=== PATIENT | male | born 1945 | race Hispanic/Latino ===

== ENCOUNTER 2024-07-05 14:24 | Emergency (ER) | payer OTHER, SELFPAY ==
--- NOTE | ~2024-07-05 | XR_ITS ---
XR chest 2V DATE: 07/05/2024 15:58 INDICATION: Cough, fever TECHNIQUE: 2 views COMPARISON: 10/08/2015 2 view chest FINDINGS: Cardiomegaly. Aortic arch calcification, thoracic aortic unfolding. No hilar or mediastinal enlargement is evident. No pulmonary infiltrate or consolidation, pleural effusion or pulmonary vascular congestion or pneumo thorax is detected. Degenerative spurring of the thoracic and lumbar spine. IMPRESSION: Cardiomegaly, aortic atherosclerosis No active pulmonary disease Reviewed, dictated and finalized at location A. 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
[2024-07-05 14:47] VITALS: BP 118/80; PULSE 99; RESP 16; TEMP 37.3; O2SAT 96
[2024-07-05 15:14] LABS: EDCOVIDSCREEN Negative (Negative); EDINFLUASCREEN Negative (Negative); EDINFLUBSCREEN Negative (Negative)
--- NOTE | 2024-07-05 15:43 | ED_ITS ---
HPI - URI/Sore Throat General Chief Complaint: Upper Respiratory Infection Stated Complaint: Cough/Fever/Chills Source: patient Mode of arrival: ambulatory Limitations: no limitations History of Present Illness HPI Narrative: 78-year-old male with hx HTN and afib presented for complaint of cough for 1 week. Endorses cough is worse at night, and reports fever. Denies shortness of breath, wheezing, chest pain, palpitations, nausea vomiting, diarrhea or lethargy. Not taking anything for symptoms. Related Data Home Medications Medication Instructions Recorded Confirmed allopurinol 100 mg tablet mg 07/05/24 allopurinol 300 mg tablet mg 07/05/24 apixaban 5 mg tablet (Eliquis) mg 07/05/24 atorvastatin 10 mg tablet mg 07/05/24 lisinopril 20 tablet 07/05/24 mg-hydrochlorothiazide 25 mg tablet metoprolol succinate 50 mg mg PO 07/05/24 tablet,extended release 24 hr naproxen 500 mg tablet mg 07/05/24 omeprazole 20 mg capsule,delayed mg 07/05/24 release propafenone 325 mg mg PO 07/05/24 capsule,extended release 12 hr Allergies Allergy/AdvReac Type Severity Reaction Status Date / Time No Known Allergies Allergy Unverified 07/05/24 15:09 Review of Systems Review of Systems: CONSTITUTIONAL: Denies body aches, reports fever, chills EYES: Denies visual changes, redness, or discharge. ENT: Denies rhinorrhea, congestion, sore throat, or otalgia. CARDIOVASCULAR: Denies chest pain, palpitations, or edema. RESPIRATORY: Reports cough, denies sob, wheezing. GASTROINTESTINAL: Denies abdominal pain, nausea, vomiting, or diarrhea. NEUROLOGIC: Denies headache All systems reviewed & are unremarkable except as noted in HPI and below [facility] Comments At time of signature, I have reviewed and agree with nursing past medical, surgical, social and family history unless otherwise noted. Please see nursing chart for further information. There is no relevant family history pertinent to the presenting complaint Exam Narrative: GENERAL: Well-appearing, in no acute distress. EYES: EOMI. No redness or drainage. Conjunctivae normal. ENT: Mucous membranes pink and moist. No rhinorrhea. TMs normal bilaterally. Throat normal. Uvula midline. NECK: Normal AROM. Supple. CHEST: No respiratory distress. Lungs clear to all chambers. Frequent moist cough noted HEART: Regular rate and rhythm. No murmur appreciated. ABDOMEN: Soft, nontender, nondistended, normal active bowel sounds. SKIN: Warm, dry, no rash. Capillary refill normal. Normal skin turgor. NEURO: Alert and oriented x3. Gait steady. PSYCH: Normal affect. Course Course Emergency Course: Patient is aware of diagnosis, understands and agrees to treatment plan. Anticipatory guidance given. Patient agrees to follow-up as directed and is aware of reasons to seek care at the emergency department. Portions of this record may have been created with voice recognition software Level of Care: Express Care Visit Vital Signs Vital signs: Vital Signs Temperature 99.1 F 07/05/24 14:47 Pulse Rate 99 07/05/24 14:47 Respiratory Rate 16 07/05/24 14:47 Blood Pressure 118/80 07/05/24 14:47 Pulse Oximetry 96 07/05/24 14:47 Temperature 99.1 F 07/05/24 14:47 Pulse Rate 99 07/05/24 14:47 Respiratory Rate 16 07/05/24 14:47 Blood Pressure 118/80 07/05/24 14:47 Pulse Oximetry 96 07/05/24 14:47 MDM - URI/Sore Throat MDM Narrative Medical decision making narrative: Discussed physical exam findings and cxr. Advised supportive measures and signs/symptoms to go to the ER. Pt is appropriate for outpt treatment and f/u. Differential Diagnosis Differential diagnosis: Likely upper respiratory infection, sinusitis, viral infection, bronchitis and other (pneumonia) Lab Data Labs: Lab Results 07/05/24 Range/Units 15:12 POC Influenza A Ag Negative (Negative) POC Influenza B Ag Negative (Negative) POC SARS CoV-2 Ag Negative (Negative) Imaging Data Radiologist's impression: Patient: Christophe Rocha : 1945 MR#: [id number] Age: 78 Acct:[id number] Loc: [facility] ADM Date: 07/05/24Attending Dr: Ordering Physician: Brit Landeros APRN Date of Service: 07/05/24 Procedure(s): XR chest 2V Accession Number(s): [id number] cc: Brit Landeros APRN; WEATHERIZATION DIRECTOR PHYSICIAN~ XR chest 2V DATE: 07/05/2024 15:58 INDICATION: Cough, fever TECHNIQUE: 2 views COMPARISON: 10/08/2015 2 view chest FINDINGS: Cardiomegaly. Aortic arch calcification, thoracic aortic unfolding. No hilar or mediastinal enlargement is evident. No pulmonary infiltrate or consolidation, pleural effusion or pulmonary vascular congestion or pneumothorax is detected. Degenerative spurring of the thoracic and lumbar spine. IMPRESSION: Cardiomegaly, aortic atherosclerosis No active pulmonary disease Discharge Plan Discharge Clinical Impression: Bronchitis Patient Disposition: Home, Self-Care Condition: Stable Instructions: Antibiotic Form, Acute Bronchitis (ED) Additional Instructions: Acute bronchitis can be contagious because it is usually caused by infection with a virus or bacteria. It is usually for a few days but you can be contagious for up to one week. Avoid crowds until you do not have a fever and symptoms are improved Take medication as directed Recommend Flonase spray and Zyrtec (or Claritin/Coretta) if you have nasal congestion over the counter Cough syrup may cause drowsiness; avoid driving or take it at night time. Coricidin HBP if you have hypertension Tylenol 1000mg every 8 hours as needed for pain Symptomatic treatment includes: rest, fluids, and increase humidity of the air at home. Follow up with your primary care provider as needed in 1 week Go to the ER for worsening symptoms or concerns Prescriptions: New methylprednisolone [Medrol (Anthony)] 4 mg tablets,dose pack See Rx Instructions .ROUTE .COMPLEX Qty: 21 0RF Rx Instructions: orally per package directions amoxicillin-pot clavulanate 875-125 mg tablet 1 tablet PO Q12H 7 Days Qty: 14 0RF No Action atorvastatin 10 mg tablet metoprolol succinate 50 mg tablet extended release 24 hr PO allopurinol 100 mg tablet omeprazole 20 mg capsule,delayed release(DR/EC) lisinopril-hydrochlorothiazide 20-25 mg tablet allopurinol 300 mg tablet naproxen 500 mg tablet propafenone 325 mg capsule,extended release 12 hr PO Eliquis 5 mg tablet Follow-up/Referrals: PHYSICIAN,WEATHERIZATION DIRECTOR [Primary Care Provider] - Time of Disposition: 16:39
== END 2024-07-05 16:40 | disposition home or self-care (01) ==
PROVIDERS: Emergency Provider Nurse Practitioner Family
DX: J40 Bronchitis, not specified as acute or chronic (principal); Z20.822 Contact with and (suspected) exposure to COVID-19; I10 Essential (primary) hypertension; I48.91 Unspecified atrial fibrillation; E78.00 Pure hypercholesterolemia, unspecified
CPT/HCPCS: 71046; 87426; 87804; 99203; G0463

== ENCOUNTER 2024-11-05 11:08 | Emergency (ER) | payer MEDICARE, MEDICAID, SELFPAY ==
--- NOTE | ~2024-11-05 | XR_ITS ---
XR chest 2V 11/05/2024 12:02 Indication: Cough and chest discomfort crackles in lung bases. Procedure: 2 view chest Comparison: 07/05/2024 Findings: Cardiomegaly. Mild interstitial edema. More focal consolidation present in the lung bases w hich may relate to edema or superimposed pneumonia. No significant effusion. No pneumothorax. Impression: 1: Cardiomegaly with interstitial edema. 2: Lower thoracic pulmonary consolidation may reflect edema or superimposed pneumonia. Reviewed, dictated and finalized at location A. Impression: 1: Cardiomegaly with interstitial edema. 2: Lower thoracic pulmonary consolidation may reflect edema or superimposed pne umonia.
--- NOTE | 2024-11-05 11:19 | ED_ITS ---
HPI - URI/Sore Throat General Chief Complaint: Upper Respiratory Infection Stated Complaint: COUGH/BODY ACHES/COLD Time Seen by Provider: 11/05/24 11:30 Source: patient Mode of arrival: ambulatory Limitations: no limitations History of Present Illness HPI Narrative: Christophe is a 79-year-old male patient presenting to the clinic today with complaints of productive cough with brown phlegm, body aches, chest congestion, anterior rib pain with coughing. Symptoms have been going on for the past 8 days. Denies any shortness of breath currently while resting. Denies chest pain but states his anterior ribs hurt when coughing. No known fever. No history of smoking. No history of asthma,COPD, CHF, or AK. History of CVA, A- fib, HTN, and hypercholesterolemia. Related Data Home Medications ?Medication ?Instructions ?Recorded ?Confirmed ?Last Taken ?Type allopurinol 300 mg tablet mg 07/05/24 Unknown History apixaban 5 mg tablet (Eliquis) mg 07/05/24 Unknown History atorvastatin 10 mg tablet mg 07/05/24 Unknown History lisinopril 20 tablet 07/05/24 Unknown History mg-hydrochlorothiazide 25 mg tablet metoprolol succinate 50 mg mg PO 07/05/24 Unknown History tablet,extended release 24 hr naproxen 500 mg tablet mg 07/05/24 Unknown History omeprazole 20 mg capsule,delayed mg 07/05/24 Unknown History release propafenone 325 mg mg PO 07/05/24 Unknown History capsule,extended release 12 hr Allergies Allergy/AdvReac Type Severity Reaction Status Date / Time No Known Allergies Allergy Verified 11/05/24 11:27 Review of Systems Review of Systems: Pertinent positives per HPI. Patient denies any fever, chills, rash, headache, visual changes, dizziness,shortness of breath, chest pain, palpitations, nausea, vomiting, diarrhea, constipation, abdominal pain, or any urinary issues. PMFSH Comments At the time of my signature, I reviewed and agree with the nursing past medical, surgical, social, and family history. There is no relevant family history pertinent to the patient complaint. Exam Narrative: General: Well-developed, well nourished, acutely ill-appearing Head: Normocephalic, atraumatic Eyes: Pupils equally round and reactive to light bilaterally, EOM intact, sclera and conjunctive clear, no discharge, lids normal Ears: TMs intact and clear, ear canals clear, no drainage, grossly hearing normal. Nose: Nares patent, clear nasal discharge, no inflammation, no sinus tenderness. Mouth: Oral pharynx without lesions or masses, good dentition, MMM. Neck: Supple, trachea midline, no enlargement of anterior or posterior cervical nodes, no thyroid masses or goiter palpable. Cardio: Regular rate and rhythm, s1 and s2 normal, no murmur appreciated. Resp: Diminished breath sounds with crackles in the bases, no rhonchi, rales, wheezing or rubs Course Course Emergency Course: Portions of this record may have been created with voice recognition software. Level of Care: Express Care Visit Vital Signs Vital signs: Vital Signs Temperature 36.6 C 11/05/24 11:26 Pulse Rate 108 H 11/05/24 11:26 Respiratory Rate 16 11/05/24 11:26 Blood Pressure 145/90 H 11/05/24 11:26 Pulse Oximetry 96 11/05/24 11:26 Temperature 36.6 C 11/05/24 11:26 Pulse Rate 108 H 11/05/24 11:26 Respiratory Rate 16 11/05/24 11:26 Blood Pressure 145/90 H 11/05/24 11:26 Pulse Oximetry 96 11/05/24 11:26 Vital signs reviewed Transfer Transfered to: [facility] Medical Transportation: Other (Private car) Transfer rationale: SOB on exertion, pulmonary edema verses superimposed pneumonia Accepting physician: Bone-SUSPENDER MAKER Transfer comments: Private car MDM - URI/Sore Throat MDM Narrative Medical decision making narrative: At the time of visit patient is resting comfortably on the exam table. Patient appears to be nontoxic. EKG: EKG shows atrial fibrillation with rapid ventricular response. Heart rates 119 beats per minute. Right bundle-branch block. No ST elevation, depression, or T-wave inversion noted. Diagnostics: Chest x-ray shows cardiomegaly with interstitial edema versus superimposed pneumonia Plan: Recommend transfer to the ER for further evaluation. Patient and daughter is agreeable to this. Would like to be transfer to [facility] Emergency Room in [place], [place]. Patient's binder fixer is Dr. Carter. Patient to be transported via private car. Daughter to drive patient to [facility] ER. Differential Diagnosis Differential diagnosis: Likely upper respiratory infection, otitis media, sinusitis, viral infection, bronchitis, influenza, pharyngitis and other (COVID, influenza, RSV, pneumonia, pulmonary edema, congestive heart failure) Imaging Data Radiologist's impression: ITS Impressions Chest X-Ray 11/05/24 12:03 Impression: 1: Cardiomegaly with interstitial edema. 2: Lower thoracic pulmonary consolidation may reflect edema or superimposed pneumonia. ECG Data EKG #1: Attestation: I personally reviewed and interpreted this ECG as follows: ECG completion date: 11/05/24 ECG completion time: 01:19 Interpretation: EKG shows atrial fibrillation with a rapid ventricular response. Heart rate is 119 beats per minute. Shows a right bundle-branch block without ST elevation, depression, or T-wave inversion. QRS duration is 124 milliseconds, QT-QTC is 324-394 milliseconds, R-T axis is 47 and -17 Discharge Plan Discharge Clinical Impression: Dyspnea on exertion, Cardiomegaly Interstitial edema Qualifiers: Edema type: unspecified Qualified Code(s): R60.9 - Edema, unspecified Patient Disposition: Acute Care Hospital Condition: Stable Patient Language: Slovenian Prescriptions: No Action atorvastatin 10 mg tablet metoprolol succinate 50 mg tablet extended release 24 hr PO omeprazole 20 mg capsule,delayed release(DR/EC) lisinopril-hydrochlorothiazide 20-25 mg tablet allopurinol 300 mg tablet naproxen 500 mg tablet propafenone 325 mg capsule,extended release 12 hr PO Eliquis 5 mg tablet Follow-up/Referrals: Trae,CHINEDU Pearson [Primary Care Provider] - Time of Disposition: 12:29 Quality NIHSS Nursing Documentation ED NIHSS nursing documentation: reviewed/agree
[2024-11-05 11:26] VITALS: BP 145/90; PULSE 108; RESP 16; TEMP 36.6; O2SAT 96
--- NOTE | 2024-11-05 12:14 | ECG_ITS ---
Test Date: 2024-11-05 12:19:28 Measurements Intervals [place] Rate: 119 P: 0 [place]: 0 QRS: 47 QRSD: 124 T: -17 QT: 324 QTc: 456 Interpretive Statements ATRIAL FIBRILLATION WITH RAPID VENTRICULAR RESPONSE RIGHT BUNDLE BRANCH BLOCK [120+ ms QRS DURATION, UPRIGHT V1, 40+ ms S IN I/aVL/V4/V5/V6] No previous ECG available for comparison Electronically Signed On 11-05-2024 14:36:55 CDT by Jorge Luis Marc M.D.
== END 2024-11-05 12:35 | disposition short-term general hospital (02) ==
PROVIDERS: Emergency Provider Nurse Practitioner Family; PCP Physician Assistant
DX: R06.09 Other forms of dyspnea (principal); I51.7 Cardiomegaly; J81.1 Chronic pulmonary edema; I48.91 Unspecified atrial fibrillation; I45.10 Unspecified right bundle-branch block; I10 Essential (primary) hypertension; E78.00 Pure hypercholesterolemia, unspecified; Z86.73 Personal history of transient ischemic attack (TIA), and cerebral infarction without residual deficits; Z79.01 Long term (current) use of anticoagulants
CPT/HCPCS: 71046; 93005; 99213; G0463

== ENCOUNTER 2025-01-25 18:29 | Emergency (ER) | payer MEDICARE, MEDICAID, SELFPAY ==
[2025-01-25 18:32] VITALS: BP 112/75; PULSE 79; RESP 18; TEMP 36.7; O2SAT 97
[2025-01-25 20:20] LABS: Add Urine Microscopic? YES; Appearance Urine Clear (Clear); Bacteria Urine None Seen /hpf; Bilirubin Urine Negative (Negative); Blood Urine Negative (Negative); Color Urine Yellow (Yellow); Glucose Urine UA Negative (Negative); Ketones Urine Trace mg/dL (Negative); Leukocyte Esterase Ur Negative LEU/UL (Negative); Nitrate Urine Negative (Negative); Non Pathogenic Casts 0-2; Protein Urine Trace mg/dL (Negative); RBC Urine 0-2 /hpf (0-2); Squamous Epithelial Cell Urine None Seen /hpf (Few); Urobilinogen Urine 0.2 mg/dL (<2.0); WBC Urine 0-5 /hpf (0-3); pH Urine 5.5 (5.0-9.0)
[2025-01-25 20:23] LABS: Basophils Absolute Auto 0.1 K/mm3 (0.0-0.1); Basophils Percent Auto 0.7 % (0.2-1.2); Eosinophils Absolute Auto 0.2 K/mm3 (0-0.3); Eosinophils Percent Auto 1.9 % (0-4.4); Hematocrit 45.5 % (42.0-52.0); Hemoglobin 14.9 g/dL (14.0-18.0); Immature Granulocyte Absolute 0.04 K/mm3 (0.00-0.031); Immature Granulocyte Percent A 0.4 % (0-0.5); Lymphocytes Absolute Auto 1.81 K/mm3 (0.9-3.2); Lymphocytes Percent Auto 17.6 % (18.3-44.2); Mean Corpuscular HGB Conc 32.7 g/dl (32-36); Mean Corpuscular Hemoglobin 30.5 pg (26-34); Mean Platelet Volume 10.7 fl (7.4-10.4); Monocytes Absolute Auto 0.9 K/mm3 (0.1-0.6); Monocytes Percent Auto 8.7 % (2.6-8.5); Neutrophils Absolute Auto 7.3 K/mm3 (1.3-6.7); Neutrophils Percent Auto 70.7 % (45.5-73.1); Platelet Count Result 230 k/mm3 (150-375); Red Blood Count 4.89 M/mm3 (4.6-6.20); Red Cell Distribution Width 13.6 % (11.5-14.5); White Blood Count 10.3 K/mm3 (4.5-10.0)
[2025-01-25 20:27] LABS: Alanine Aminotransferase 24 U/L (6-50); Albumin Level 4.2 g/dL (3.5-5.1); Alkaline Phosphatase 102 U/L (38-126); Anion Gap 12 mmol/L (4-12); Aspartate Amino Transferase 28 U/L (17-59); Bilirubin,Total 0.9 mg/dL (0.2-1.3); Blood Urea Nitrogen 28 mg/dL (9-20); Calcium 9.1 mg/dL (8.4-10.2); Carbon Dioxide 22 mmol/L (22-30); Chloride 102 mmol/L (98-107); Estimated CRCL calculation 44 ml/min; Estimated Glomerular Filt Rate 48; Glucose 94 mg/dL (65-110); Lipase 83 U/L (23-300); Potassium 3.5 mmol/L (3.4-5.0); Sodium 136 mmol/L (137-145); Total Protein 7.4 g/dL (6.3-8.2)
--- OUTSIDE RECORDS SUMMARY | 2025-01-25 20:51 | XMS_ITS | Clinical Summary ---
Author Organization [facility] Facility Address [address] [address] Care Team Providers Care Body Finisher Name Role Phone Chance Larkin Primary Care Provider Encounters Date Type Department Care Team Description 12/31/2024 Documentation Only [facility], [address] [address] ProviderAriela MD from Last 3 Months Social History Tobacco Use Types Packs/Day Years Used Date Smoking Tobacco: Never Assessed Sex and Gender Information Value Date Recorded Sex Assigned at Not on file Legal Sex Male 10:34 AM EDT Gender Identity Not on file Sexual Orientation Not on file Plan of Treatment Health Maintenance Due Date Last Done Comments Pneumococcal Vaccine: 50+ Ye ars (2 of 2 - PPSV23, PCV20, or PCV21) 07/06/2017 05/11/2017 Influenza Vaccine (Season Ended) 2025 Hepatitis B Vaccine Aged Out No longe r eligible based on patient's age to complete this topic Insurance UHC Medicare Medicaid [place] Care Teams Body Finisher Relationship Specialty Start Date End Date Chance Larkin PA [address] [place] [address] PCP - General Physician Clinic [facility] 12/31/24
--- OUTSIDE RECORDS SUMMARY | 2025-01-25 20:51 | XMS_ITS | Clinical Summary ---
Author Organization [facility] Address [address] [place] [address] Care Team Providers Care Clinical Trial Manager Name Role Phone Dorys Driscoll MD Primary Care Provider [phone] Source Comments [facility],non-owned Affiliates and Associated Physician Practices is amultiple site organization consisting of ambulatory clinics and hospital sitesin [place], [place], [place] and [place]. This disclosure is being madepursuant to the Care Everywhere program and may not contain all information available regarding this patient. Last updated 18.[facility] Allergies Active Allergy Reactions Criticality Noted Date Comments Neutrogena Moisture Rash Medium 11/09/2013 Medications * Be aware that medications may not be up to date on this document. Alwaysverify current medications with the patient. Eliquis 5 MG tablet Take 1 (one) tablet by mouth 2 times daily 4 Active propafenone SR 12hr (Rythmol SR) 325 MG capsule Take 1 (one) capsule by mouth every 12 hours 4 Active lisinopril-hydr oCHLOROthiazide (Prinzide; Zestoretic) 20-25 MG tablet Take 1 (one) tablet by mouth once daily Active Vitamin D3 (25 MCG) 1000 UNIT capsule Take 2 (two) capsules by mouth once daily Active atorvastatin (Lipitor) 10 MG tablet Take 1 (one) tablet by mouth once daily Active metroNIDAZOLE, topical, (Metrocream) 0.75 % cream APPLY THIN LAYER TOPICALLY TO THE AFFECTED AREA TWICE DAILY IN THE MORNING AND IN THE EVENING 3 Active pravastatin (Pravachol) 10 MG tablet Take 1 (one) tablet by mouth at bedtime Active Active Problems Problem Noted Date Diagnosed Date Neoplasm of uncertain behavior of skin 6 Personal history of malignant melanoma of skin 0 03/21/2012 Family History Medical History Relation Name Comments Blindness Father Glaucoma Father Allergy (Severe) Neg Hx CVA Neg Hx Cancer Neg Hx Cancer - Breast Neg Hx Cancer - Skin, Melanoma Neg Hx Cancer - Skin, Non Melanoma Neg Hx Eczema Neg Hx Hemophilia Neg Hx Macular Degeneration Neg Hx Psoriasis Neg Hx Rashes/Skin Problems Neg Hx Retinal Detachment Neg Hx Strabismus Neg Hx Relation Name Status Comments Father Social History Tobacco Use Types Packs/Day Years Used Date Smoking Tobacco: Former Smokeless Tobacco: Never Alcohol Use Standard Drinks/Week Comments Yes 0 (1 standard drink = 0.6 oz pur e alcohol) Sex and Gender Information Value Date Recorded Sex Assigned at Not on file Legal 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 Gender Identity Not on file Sexual Orientation Not on file Plan of Treatment Health Maintenance Due Date Last Done Comments DTAP/TDAP/TD VACCINES (1 - Tdap) 1964 PNEUMOCOCCAL VACCINE 50+ (1 of 1 - PCV) 1995 ZOSTER VACCINE (1 of 2) 1995 Respiratory Syncytial Virus (RSV) Vaccine Pt: or over 60 yrs (1 - 1-dose 75+ series) 2020 COVID-19 VACCINE ( - 2023-2 5 season) 2024 DEPRESSION SCREENING 08/12/2024 MEDICARE AWV CALENDAR YEAR 2024 INFLUENZA VACCINE Completed 07/15/2024, 06/01/2021 HEPATITIS B VACCINE Aged Out No longe r eligible based on patient's age to complete this topic HIB VACCINE Aged Out No longer eligi ble based on patient's age to complete this topic HPV VACCINE Aged Out No longer eligi ble based on patient's age to complete this topic MENINGOCOCCAL (Group B) VACCINE SHARED DECISION-MAKING Aged Out No longer eligible based on patient's age to complete this topic MENINGOCOCCAL GROUPS A/C/Y/W VACCINE Aged Out No longer eligible b ased on patient's age to complete this topic Insurance MEDICARE MEDICAID - [facility] MANAGED MEDICARE ADV MEDICAID - [place] Care Teams Clinical Trial Manager Relationship Specialty Start Date End Date Dorys Driscoll MD NPI: [id number] [place] [address] [address] [place] [address] [facility] - General 02/22/12
--- OUTSIDE RECORDS SUMMARY | 2025-01-25 20:52 | XMS_ITS | Data Portability ---
Author Organization [place] - [facility], [facility] Address [address] [place] [phone] Assessment No assessment recorded. Plan of Treatment Reminders Order Date Submit Date Provider Last Modified By Organization Details Last Modified Time Details Appointments None record ed. Lab None record ed. Referral None record ed. Procedures None record ed. Surgeries None record ed. Imaging None record ed. Medication Orders None record ed. Patient TargetsNo targets recorded. Patient InstructionsNo instructions recorded. Reason for Referral None Reported. Medical Equipment None Reported. Medications Name Sig Start Date Stop Date Status Note LastModified by Organization Details LastModified Time tramadol 50 mg tablet TK 1 T PO Q 6 H PRN active Not Available Not Available No t Available pravastatin 80 mg tablet TAKE 1 TABLET BY MOUTH DAILY active Not Available Not Available No t Available metronidazole 0.75 % topical cream ALYSSA TO AFFECTED AREA BID PRN active Not Available Not Available No t Available metoprolol tartrate 50 mg tablet TAKE 1 TABLET BY MOUTH TWICE DAILY active Not Available Not Available No t Available lisinopril 20 mg-hydrochloro thiazide 25 mg tablet TAKE 1 TABLET BY MOUTH DAILY active Not Available Not Available No t Available aspirin 81 mg chewable tablet CHEW AND SWALLOW TABLET BY MOUTH DAILY active Not Available Not Available No t Available propafenone ER 325 mg capsule,extend ed release 12 hr TAKE 1 CAPSULE BY MOUTH EVERY 12 HOURS active Not Available Not Available No t Available Eliquis 5 mg tablet TAKE 1 TABLET BY MOUTH TWICE DAILY active Not Available Not Available No t Available Vitals None Recorded Social History None recorded. Functional Status None recorded. Mental Status None recorded. Family History Nothing Reported. Medical History No medical history recorded. Immunizations Vaccine Type Date Status Note Provider Maurice luque and Address Organization Details Recorded Time COVID-19 vaccine, vector-nr, rS-Ad26, PF, 0.5 mL 11/15/2020 completed Savita Pal MD [address] [place], [address], [facility] 11/15/2020 22:57:14 Past Encounters Encounter ID Performer Location Encounter Start Date Encounter Closed Date Diagnosis/Indication Diagnosis SNOMED-CT Code Diagnosis ICD10 Code Diagnosis Note [id number] Savita Pal MD [address] [place] [address] 11/15/2020 14:35:56 11/17/2020 23:06:21 Administration of viral vaccine [id number] Z23 Health Concerns Section Related Observation LastModified by Organization Detai ls LastModified Time None Recorded Concern Status LastModified by Organization Details LastModified Time None Recorded Advance Directives Directive None Recorded Payers Insurance Date Sequence Insurance Name Policy Number Policy Dyson Covered Member ID Dyson Member ID Guarantor Name 08/31/2021 2 [facility] - DUAL ELIGIBLE (MEDICARE REPLACEMENT/AD VANTAGE - HMO) [place] Christophe Rocha [id number] Christophe Rocha 08/31/2021 3 [place] [employer] Christophe Rocha [id number] Christophe Rocha 08/31/2021 1 [facility] [place] Christophe Rocha [id number] Christophe Rocha 08/31/2021 1 [place] Christophe Rocha [id number] Christophe Rocha 08/31/2021 [place] [facility] Christophe Rocha [id number] Christophe Rocha
--- OUTSIDE RECORDS SUMMARY | 2025-01-25 20:52 | XMS_ITS | Data Portability ---
Author Organization [place] [facility], Main Office Address [address] [place] [address] Assessment Encounter Date Assessment Date Assessment LastModified by Organization Details LastModified Time 11/17/2024 11/17/2024 I have reconciled the patient's medications post their discharge from inpatient facility. Not available 11/17/2024 09:09:11 Plan of Treatment Reminders Order Date Submit Date Provider Last Modified By Organization Details Last Modified Time Details Appointments Sick/Acut e 2024 04:15P Alfred Ramires MD Not available Not available Not available Follow Up 30 2024 09:00A JUANI Conner Not available Not available Not available Lab None recorded. Referral sleep medicine referral - Has sleep apnea , machine too big , clumsy . Please eval and treat . Please call patient to schedule an appointme nt. Thank you 2024 025 [facility] ([facility]), [address] [place], [address], 12/30/2024 19:10:28 nephrolog ist referral - Had pneumonia , is fatigued m bruise and swelling left ankle , Please eval and treat. Is cold all the time. Please call patient to schedule an appointme nt. Liliya. 2024 025 [facility] Man Kaminski DO, [address] [facility], [facility] [address], [place], [address], 12/30/2024 18:55:17 Procedures None recorded. Surgeries None recorded. Imaging US, duplex, venous, lower extremity , unilatera l - positive corin's left , on Eliquis [email or web address] (Imaging), [address], [place], [address], 12/22/2024 11:59:12 US, duplex, venous, lower extremity , complete - bilateral 2024 025 [facility] (Imaging), [address], [place], [address], 11/25/2024 16:05:49 Medication Orders promethaz ine-DM 6.25 mg-15 mg/5 mL oral syrup [address] [facility], [address] [place], [place], [id number], 11/17/2024 09:15:21 prednison e 20 mg tablet [address] [facility]858, [address] [place], [place], [phone], 12/14/2024 09:32:10 metronida zole 0.75 % topical cream 2023 024 [facility], [address] [place], [place], [id number], 07/15/2024 10:40:13 Patient TargetsNo targets recorded. Patient Instructions Encounter Date Encounter Id Patient Instructions Last Modified By Organization Details Last Modified Time 07/15/2024 [id number] dementia rating scale-2* [email or web address] Not available 07/15/2024 10:40:08 depression screening* [email or web address] Not available 07/15/2024 10:40:08 alcohol misuse* [email or web address] Not availab le 07/15/2024 10:40:08 multi-dimensiona l health assessment questionnaire* [email or web address] Not available 07/15/2024 10:40:08 Personalized a lt Plan and Screening Recommendations Advance Directives - Do you have one? No I have no recommendations Advance Directives - Do we have your advance directive on file in your health record? I have no recommendations Primary Prevention/Interven tion (prevents or decreases the chance of common diseases from occurring) Smoking Risk: Non Smoker I have no recommendations Alcohol Misuse Screening: Negative I have no recommendations Weight: Overweight try to lose 10% of your body weight Physical activity: Need more exercise/physical activity minimum of 20-30 minutes activity that causes mild breathlessness/day Nutrition: Average Eat Heart Healthy Diet Fall Risk (screened today): Low I have no recommendations Vaccines Pneumococcal: No further needed Influenza: Your next one in the fall of this year Chronic Disease Risks Stroke: Intermediate Risk Active diagnosis, Continue current treatment plan Heart Attack: Intermediate Risk Active diagnosis, Continue current treatment plan Clogging of the Arteries: Intermediate Risk Active diagnosis, Continue current treatment plan Diabetes: Low Risk Active diagnosis, Continue current treatment plan Secondary Prevention/Interven tion (detects treatable diseases before they may cause symptoms, disability, or ) Prostate Cancer Screening: No PSA screening necessary No digital rectal exam screening necessary Colon Cancer Screening: Cologuard (DNA stool test) Recommended Date Screening Last Performed: pt wasn't sure of last colonscopy. Eye Disease Screening: Recommended today Dementia Risk: Low I have no recommendations Depression Screening: Negative I have no recommendations Not available 07/15/2024 10:33:01 recheck BP at home [email or web address] Not avai lable 07/25/2024 21:16:54 11/17/2024 [id number] Thank you for yo ur visit to our office today. We would like to request that you reach out to your referring or previous provider and request that they send us a Summary of Care in electronic form, so that we may have it on file in your medical record. At your visit, we had the medical records we needed to provide you with the best possible care; however, for insurance purposes, an electronic Summary of Care is beneficial. Thank you for your assistance in obtaining this information and we look forward to providing continued care to you. Please review your medication list from the Summary of Care for this visit. If there are any differences from what you are currently taking at home, please call us to discuss. Not available 11/17/2024 09:09:11 Homebound Status : Required Home Health Services: Durable Medical Equipment needed: Billing Guidelines CPT code 10346- Transitional Care Management services with moderate medical decision complexity (zwuy-eh-udse visit within 14 days of discharge). CPT code 19568- Transitional Care Management services with high medical decision complexity ([id number]-xz-qfcl visit within 7 days of discharge). 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 Is cold all the time. Please call patient to schedule an appointment. Thankyou. Referring Physician: Chance Larkin [facility], Encounter Date: 12/07/2024 Sleep Medicine Referral for Idiopathic sleep related non-obstructive alveolar hypoventilation Has sleep apnea , machine too big , clumsy . Please eval and treat . Please call patient to schedule an appointment. Thank you Referring Physician: Chance Larkin [facility] [place], Encounter Date: 12/14/2024 Results Created Date Observation Date Name Description Value Unit Range Abnormal Flag Note LastModifiedBy Organization Detail LastModifiedTime 11/06/19 25 11/05/2024 imagi ng/di agnos tic resul t No observ ation record ed. [address], [place], [address], 11/05/2024 13:20:08 11/06/19 25 11/05/2024 imagi ng/di agnos tic resul t No observ ation record ed. [facility] [address] [place], [address], 11/05/2024 21:38:45 11/20/19 25 11/18/2024 US, saúl sanz s, jakub barber mitvee, nelsy ete No observ ation record ed. [email or web address] [facility] ([facility]) [address] [facility] [address], [place], [address], 11/25/2024 16:05:49 Result Notes None recorded. Problems Name Problem SNOMED Code Status Onset Date Resolution Date Notes Provider Name and Address Organization Details Recorded Time Viral bronchitis 71291813 Active Not Available [facility] 3 09:24:16 Venous insufficie ncy of leg 735447982 Active Not Available [facility] 3 09:24:17 Tinea faciei 568339539 Active Not Available [facility] 3 09:24:17 Low back pain 376460911 Active Not Available [facility] 3 09:24:17 Prostate specific antigen above reference range 152275544 Active Not Available [facility] 3 09:24:17 Peripheral vascular disease 853466991 Active Not Available [facility] 3 09:24:17 Aphthous ulcer of mouth 864537118 Active Not Available [facility] 3 09:24:17 Cough 54663570 Active Not Available [facility] 3 09:24:17 Hyperlipid emia 80883199 Active Not Available [facility] 3 09:24:17 Essential hypertensi on 25133136 Active Not Available [facility] 3 09:24:17 Edema of lower extremity 541670677 Active 2022 Not Available [facility] 3 09:24:16 Laboratory test result abnormal 636053074 Active 2022 Not Available [facility] 3 09:24:17 Abnormal weight 97976095 Active 2023 Tori Hoffmann MA [facility], [facility] [employer] [facility] 4 10:35:56 Obesity 877361411 Active 2023 CHINEDU Helm [address], [address], [place], [address] , [facility] 4 10:43:37 Atrial fibrillati on 45375867 Active 2023 [address] Helm [address], [address], [place], [address] , [facility] 4 10:43:57 Screening for malignant neoplasm of prostate Active 2023 CHINEDU Helm [address], [address], [place], [address] , [facility] 4 10:50:08 Cardiomega ly 5605207 Active 2023 Elza Snider RN null, [place] [facility] 4 12:43:05 Folliculit is 11600519 Active 2023 [facility]m [address], [address], [place], [address] , [facility] 4 14:16:41 Gout 23680429 Active 2023 CH[facility] Helm [address], [address], [place], [address] , [facility] 4 12:40:29 Gastroesop hageal reflux disease 343525575 Active 2023 [facility] Helm [address], [address], [place], [address] , [facility] 4 10:16:43 Bilateral calf pain 7570785461128 9104 Active 2024 CHINEDU Helm [address], [address], [place], [address] , [facility] 5 09:29:16 Serum creatinine above reference range 550982077 Active 2024 CHINEDU Helm [address], [address], [place], [address] , [facility] 5 12:01:57 Pain of left calf 7489017255472 109 Active 2024 CHINEDU Helm [address], [address], [place], [address] , [facility] 5 12:05:25 Idiopathic sleep related non-obstru ctive alveolar hypoventil ation 532582363 Active 2024 [facility]INEDU Helm [address], [address], [place], [address] , [place] [facility] 5 10:02:34 Notes:Some problems listed i n Document: #[id number] could not be added to this patient's chart. Please review this document and add these problems to the patient's chart manually as needed. Problem Notes None recorded. Procedures Surgical History Date Name Laterality Status Provider Name and Address Organization Details Recorded Time 5 Transitional_C are_Management completed DEMETRICE Garnica [facility] 11/17/2024 09:09:11 4 Medicare Wellness CPT Code, subsequent completed November STEFANO Cash [facility] 07/15/2024 10:27:56 excision of melanoma completed Not Available [facility] 10/10/2022 08:43:36 Imaging Results None recorded. Procedure Notes None recorded. Medical Equipment None Reported. Allergies No known drug allergies Medications Name Sig Start Date Stop Date Status Note LastModified by Organization Details LastModified Time cyclobenz aprine 10 mg tablet Take 1 tablet every day by oral route at bedtime. active Not Available Not Available No t Available amoxicill in 500 mg capsule 04/02 completed Not Available Not Available Not Available promethaz ine-DM 6.25 mg-15 mg/5 mL oral syrup TAKE 5 ML BY MOUTH EVERY 4 HOURS FOR 10 DAYS NEEDED 11/17 completed Not Available Not Available Not Available atorvasta tin 10 mg tablet TAKE 1 TABLET BY MOUTH EVERY DAY active Not Available Not Available No t Available diltiazem CD 180 mg capsule,e xtended release 24 hr TAKE 1 CAPSULE BY MOUTH EVERY DAY active Not Available Not Available No t Available metoprolo l succinate ER 50 mg tablet,ex tended release 24 hr TAKE 1 TABLET BY MOUTH EVERY DAY active Not Available Not Available No t Available valacyclo vir 1 gram tablet TK 2 TS PO Q 12 H FOR 1 DAY 11/09 completed Not Available Not Available Not Available prednison e 20 mg tablet Start on 10/15/24 ,Take 2 tabs PO twice daily for 2 days; 1 tab PO twice daily for 5 days; 1/2 tab PO twice daily for 2 days; 1/2 tab PO once for 1 day. TAKE 2ND DOSE EVERYDAY AT NOON-10 DAY COURSE 12/14 completed Not Available Not Available Not Available acetamino phen 300 mg-codein e 30 mg tablet TAKE 1 TO 2 TABLETS BY MOUTH EVERY 6 HOURS WITH FOOD NEEDED FOR PAIN 07/15 completed Not Available Not Available Not Available allopurin ol 100 mg tablet TAKE 1 TABLET BY MOUTH AT BEDTIME FOR 7 DAYS, 2 TABLETS AT BEDTIME FOR 7 DAYS, 3 TABLETS AT BEDTIME AND MAINTAIN 11/17 completed Not Available Not Available Not Available ciproflox acin 500 mg tablet TAKE 1 TABLET BY MOUTH EVERY 12 HOURS FOR 10 DAYS STARTING 1 DAY BEFORE SCHEDULE D PROCEDUR E 07/15 completed Not Available Not Available Not Available Tamiflu 75 mg capsule active Not Available Not Available Not Available aspirin 81 mg tablet,de layed release active Not Available Not Available Not Available Depo-Medr ol 80 mg/mL suspensio n for injection Take 1 mL by injectio n route. 2024 active pt tolerate d well Not Available Not Available Not Available famotidin e 20 mg tablet 11/09 completed Not Available Not Available Not Available pravastat in 80 mg tablet 11/09 completed Not Available Not Available Not Available benzonata te 100 mg capsule TAKE 1 CAPSULE BY MOUTH EVERY 8 HOURS NEEDED FOR COUGH 11/17 completed Not Available Not Available Not Available clotrimaz ole-betam ethasone 1 %-0.05 % topical cream Apply 1 applicat ion twice a day by topical route for 15 days. active Not Available Not Available No t Available metronida zole 0.75 % topical cream APPLY THIN LAYER TOPICALL Y TO THE AFFECTED AREA TWICE DAILY IN THE MORNING AND IN THE EVENING active Not Available Not Available No t Available metoprolo l tartrate 50 mg tablet TAKE 1 TABLET BY MOUTH EVERY DAY 12/25 completed Not Available Not Available Not Available indometha nell 50 mg capsule TAKE 1 CAPSULE BY MOUTH THREE TIMES DAILY FOR 10 DAYS 11/17 completed Not Available Not Available Not Available omeprazol e 20 mg capsule,d elayed release TAKE 1 CAPSULE BY MOUTH EVERY DAY BEFORE A MEAL FOR EPIGASTR IC PAIN 12/14 completed Not Available Not Available Not Available lisinopri l 20 mg-hydroc hlorothia zide 25 mg tablet TAKE 1 TABLET BY MOUTH EVERY DAY active Not Available Not Available No t Available aspirin 81 mg chewable tablet CHEW AND SWALLOW 1 TABLET BY MOUTH EVERY DAY 11/17 completed Not Available Not Available Not Available allopurin ol 300 mg tablet TAKE 1 TABLET BY MOUTH DAILY active Not Available Not Available No t Available lisinopri l 10 mg-hydroc hlorothia zide 12.5 mg tablet TAKE 1 TABLET BY MOUTH DAILY active Not Available Not Available No t Available ibuprofen 600 mg tablet 11/09 completed Not Available Not Available Not Available Valium 10 mg tablet Take 1 TABLET by mouth one hour before the schedule d procedur e active Not Available Not Available No t Available levofloxa nell 750 mg tablet TAKE 1 TABLET BY MOUTH DAILY 12/14 completed Not Available Not Available Not Available methylpre dnisolone 4 mg tablets in a dose pack FOLLOW PACKAGE DIRECTIO NS 07/15 completed Not Available Not Available Not Available diltiazem 30 mg tablet TAKE 1 TABLET BY MOUTH EVERY 6 HOURS 12/14 completed Not Available Not Available Not Available naproxen 500 mg tablet TAKE 1 TABLET BY MOUTH TWICE DAILY WITH MEALS FOR 30 DAYS 11/17 completed Not Available Not Available Not Available amoxicill in 875 mg-potass ium clavulana te 125 mg tablet TAKE 1 TABLET BY MOUTH EVERY 12 HOURS FOR 7 DAYS 07/15 completed Not Available Not Available Not Available Ventolin HFA 90 mcg/actua tion aerosol inhaler Inhale 2 puffs every 4 hours by inhalati on route as needed. active Not Available Not Available No t Available propafeno ne ER 325 mg capsule,e xtended release 12 hr TAKE 1 CAPSULE BY MOUTH TWICE DAILY active Not Available Not Available No t Available Vicodin ES 7.5 mg-300 mg tablet Take 1 TABLET by mouth one hour before the schedule d procedur e. active Not Available Not Available No t Available Eliquis 5 mg tablet TAKE 1 TABLET BY MOUTH TWICE DAILY active Not Available Not Available No t Available Contrave 8 mg-90 mg tablet,ex tended release Take by oral route for 30 days. 04/02 completed Not Available Not Available Not Available Zepbound 2.5 mg/0.5 mL subcutane ous pen injector Inject 2.5 mg every week by subcutan eous route for 30 days. 04/02 completed Not Available Not Available Not Available Vitals Date Recorded Body height Body mass index (BMI) Body weight Body temperature Heart rate Oxygen saturation Oxygen saturation in Arterial blood by Pulse oximetry Systolic blood pressure Diastolic blood pressure Provider Name and Address Organization Details Last Updated DateTime 5 175.26 cm 33.1 kg/m2 359361. 69 g 97.3 [degF] 62 /min 98 % 98 % 120 mm[Hg] 76 mm[Hg] Chapis Carrera RN [facility] [employer] [facility] 5 10:24:16 Date Recorded Body height Body mass index (BMI) Body weight Body temperature Oxygen saturation Oxygen saturation in Arterial blood by Pulse oximetry Heart rate Systolic blood pressure Diastolic blood pressure Provider Name and Address Organization Details Last Updated DateTime 5 175.26 cm 32.2 kg/m2 06762.1 4 g 97.6 [degF] 95 % 95 % 86 /min 126 mm[Hg] 78 mm[Hg] Katie Bowden Tiffanie [facility] [employer] [facility] 5 09:11:44 Date Recorded Body height Body mass index (BMI) Body weight Body temperature Oxygen saturation Oxygen saturation in Arterial blood by Pulse oximetry Heart rate Systolic blood pressure Diastolic blood pressure Provider Name and Address Organization Details Last Updated DateTime 5 175.26 cm 32.5 kg/m2 46988.3 2 g 96.8 [degF] 94 % 94 % 86 /min 122 mm[Hg] 72 mm[Hg] DEMETRICE Garnica [facility] [employer] [facility] 5 11:40:48 Date Recorded Body height Body mass index (BMI) Body weight Body temperature Heart rate Oxygen saturation Oxygen saturation in Arterial blood by Pulse oximetry Systolic blood pressure Diastolic blood pressure Provider Name and Address Organization Details Last Updated DateTime 5 175.26 cm 32.3 kg/m2 54409.7 3 g 97.7 [degF] 88 /min 96 % 96 % 120 mm[Hg] 74 mm[Hg] DEMETRICE Garnica [facility] [employer] [facility] 5 09:35:24 Date Recorded Body height Body mass index (BMI) Body weight Body temperature Heart rate Oxygen saturation Oxygen saturation in Arterial blood by Pulse oximetry Systolic blood pressure Diastolic blood pressure Provider Name and Address Organization Details Last Updated DateTime 4 175.26 cm 3.1 kg/m2 9525.44 g 97.9 [degF] 84 /min 97 % 97 % 124 mm[Hg] 92 mm[Hg] Olivia Valderrama RN [facility] [employer] 10:30:41 Social History Question Answer Notes LastModified by [employer]at [email or web address] Details LastModified Time Tobacco Smoking Status Former Smoker Not Available [employer] 10/10/2022 08:43:31 What Type Of Diet Are You Following? REGULAR [id number] Information not available 10/10/2022 When Did You Quit Smoking? 16+yearssince lastcigarette [id number] Information not available 10/10/2022 What Was The Date Of Your Most Recent Tobacco Screening? 07/15/2024 Information not available 07/15/2024 At What Age Did You Start Smoking Tobacco? 15 [id number] Information not available 10/10/2022 Do You Have Any Dietary Restrictions? No [id number] Information not available 10/10/2022 Sex: Unknown Functional Status Question Answer Note LastModified by [email or web address] Details LastModified Time Do you or have you ever used any other forms of tobacco or nicotine? No [id number] Information not available 10/10/2022 What is your exercise level? None [id number] Information not available 10/10/2022 Mental Status None recorded. Family History Nothing Reported. Medical History No medical history recorded. Immunizations Vaccine Type Date Status Note Provider Nam e and Address Organization Details Recorded Time Influenza, high-dose, trivalent, PF 07/15/2024 completed [facility] [address], [place], [address], [facility] [employer] 07/25/2024 21:14:08 Past Encounters Encounter ID Performer Location Encounter Start Date Encounter Closed Date Diagnosis/Indication Diagnosis SNOMED-CT Code Diagnosis ICD10 Code Diagnosis Note [id number] Dorys Driscoll MD [facility] Abhilash crawley [address] [facility] , [place] [address] 11/09/2021 00:00:00 11/09/2021 19:46:51 [id number] Dorys Driscoll MD [address] [place] [address] 12/25/2022 14:14:06 12/25/2022 15:15:04 Renewal of prescription 593766113 Z76.0 Hyperlipidemia 87064544 E78.5 Screening for malignant neoplasm of prostate 371654795 Z12.5 Thyroid di sorder screening 317490241 Z13.29 Edema of l ower extremity 404247027 R60.0 Elevate legs. Watch salt in diet and needs to exercise to lose weight. Use compressio n stockings. [id number] Dorys Driscoll MD [facility] [address] [place] [address] [place] [address] 09/12/2023 10:31:44 09/12/2023 10:58:28 Abnormal weight 92967909 R63.4 Essential hypertension 18851504 I10 Hyperlipidemia 23125000 E78.5 Atrial fibrillation 4943 6004 I48.91 Obesity 780923679 E66.9 Screening for malignant neoplasm of prostate 236652847 Z12.5 Diabetes m ellitus screening 517997210 Z13.1 Hyperlipid emia screening 778320511 Z13.220 Screening for disorder 911377281 Z13.9 Thyroid di sorder screening 425834068 Z13.29 Venous ins ufficiency of leg 082925377 I87.2 [id number] Dorys Driscoll MD [facility] [address] [place] [address] [place] [address] 10/23/2023 13:57:19 10/23/2023 14:37:13 Folliculitis 63250275 L73.9 Atrial fibrillation 4943 6004 I48.91 Cardiomegaly 1102406 I51 .7 Essential hypertension 34109271 I10 Hyperlipidemia 46092887 E78.5 Peripheral vascular disease 178999443 I73.9 Prostate s pecific antigen above reference range 114753543 R97.20 Venous ins ufficiency of leg 039925617 I87.2 [id number] Cristo Ramires MD [facility] [place] [address] [facility] [address] [place] [address] 04/02/2024 12:02:49 04/02/2024 12:50:03 Gout 18617292 M10.9 Diabetes m ellitus screening 165482458 Z13.1 Hyperlipid emia screening 862232253 Z13.220 Screening for disorder 922269981 Z13.9 Thyroid di sorder screening 181474222 Z13.29 [id number] Cristo Ramires MD [facility] [address] [facility] [place] [address] 04/15/2024 09:26:42 04/15/2024 10:21:38 Gout 62579058 M10.9 Gastroesop hageal reflux disease 808425251 K21.9 Atrial fibrillation 4943 6004 I48.91 Cardiomegaly 2409953 I51 .7 Essential hypertension 45402150 I10 Hyperlipidemia 04372088 E78.5 Peripheral vascular disease 691510967 I73.9 Venous ins ufficiency of leg 073649059 I87.2 [id number] Cristo Ramires MD [address] [address] 07/15/2024 10:05:06 07/15/2024 10:49:22 Administration of influenza vaccine 68746250 Z23 Adult [facility] th examination [id number] Z00.00 Screening for disorder [id number] Z13.9 Renewal of prescription 844490483 Z76.0 Cough 90722584 R05.9 [id number] Cristo Ramires MD [address] [address] 10/13/2024 10:19:09 10/15/2024 09:11:34 Gastroesophageal reflux disease 236212720 K21.9 Gout 17622055 M10.9 Atrial fibrillation 4943 6004 I48.91 Essential hypertension 92527473 I10 Hyperlipidemia 97158982 E78.5 Peripheral vascular disease 185591942 I73.9 Edema of l ower extremity 305004330 R60.0 Obesity 353684335 E66.9 [id number] Cristo Ramires MD [address] [address] 11/17/2024 08:58:30 11/17/2024 09:53:01 Transition of care [id number] 105 Z75.8 Atrial fibrillation 4943 6004 I48.91 Essential hypertension 07018027 I10 Bilateral calf pain 1563 819256 4107153 M79.661 M79.662 Gastroesop hageal reflux disease 197498443 K21.9 Hyperlipidemia 12903026 E78.5 Peripheral vascular disease 548254078 I73.9 [id number] Cristo Ramires MD [address] [address] 12/07/2024 11:28:54 12/07/2024 12:14:01 Cardiomegaly 9794638 I51.7 Serum crea tinine above reference range 755536550 R79.89 Pain of left calf 930179 2184 952730 M79.600 [id number] Cristo Ramires MD [address] [address] 12/14/2024 09:21:45 12/14/2024 10:19:11 Idiopathic sleep related non-obstructive alveolar hypoventilation 201988566 G47.34 Health Concerns Section Related Observation LastModified by Organization Detai ls LastModified Time None Recorded Concern Status LastModified by Organization Details LastModified Time None Recorded Advance Directives Directive None Recorded Payers Insurance Date Sequence Insurance Name Policy Number Policy Dyson Covered Member ID Dyson Member ID Guarantor Name 10/23/2023 1 [facility] (MEDICARE REPLACEMENT/A DVANTAGE - HMO) [place] Christophe Rocha [id number] Christophe Rocha 12/11/2024 2 [place] WHEN MED[place]ARE OR MEDICARE REPLACEMENT PRIMARY) Christophe Rocha [id number] Christophe Rocha 01/25/2025 1 [facility] (MEDICARE REPLACEMENT/A DVANTAGE - PPO) [id number] Christophe Rocha [id number] Christophe Rocha Notes Date Note Type Note Provider Name and Address Organization Details Recorded Time 07/15/2024 text/html no fever , just a little cough that won't resolve [facility] [address], [place], [address], [employer] 07/25/2024 21:17:20 10/13/2024 text/html joint pain , feels like gout ,has not been eating right . edema feet , lower legs [facility] [address], [place], [address], [employer] 10/15/2024 08:53:49 11/17/2024 text/html hosp covid pneumonia . 11/05 discharged on 11/08 .. Covid set off his atrial fib again . [facility] [address], [place], [address], [employer] 11/17/2024 17:00:07 12/07/2024 text/html had pneumonia , very tired since pneumonia , pain left calf [facility] [address], [place], [address], [employer] 12/13/2024 14:49:19 12/14/2024 text/html refuses to use CPAP , too big , bulky . [facility] [address], [place], [address], [employer] [facility] [employer] 12/16/2024 11:07:31
--- OUTSIDE RECORDS SUMMARY | 2025-01-25 20:52 | XMS_ITS | CONTINUITY OF CARE DOCUMENT ---
Author Name henna daliabrea Address Unknown Organization 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 Eduardo Carter MD OBESITY active ? Eduardo Carter MD HYPERCHOLESTEROLEMIA completed - Eduardo zuniga MD ? 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 Eduardo Carter MD ARTHRITIS - RIGHT KNEE active Eduardo zuniga MD Family History of Sudden Car diac : completed - Eduardo Carter MD Family History of Sudden Car diac : completed - Eduardo Carter MD Leg pain active Eduardo Carter MD Hypertension active Eduardo Carter MD Hyperlipidemia active Eduardo Carter MD Atrial Fibrillation active Eduardo Maher Localized swelling on foot, left active Petr Carter MD Numbness and tingling, left arm and leg active Eduardo Carter MD JOCE, not using CPAP active Eduardo Mhaer Gout active Eduardo Carter MD Erectile dysfunction active Eduardo Carter MD COVID-19 active Eduardo Carter MD Hx of Pneumonia active Eduardo Carter MD Cardiology examination active Eduardo zuniga MD Leg Edema active Eduardo Carter MD ENCOUNTERS Date Type Provider Location Encounter Diag nosis - In-person encounter Office Visit Eduardo Carter MD [facility] Cardiology examinationLeg Edema - In-person encounter Office Visit Eduardo Carter MD [facility] COVID-19Hx of Pneumonia - In-person encounter Office Visit Eduardo Carter MD [facility] - In-person encounter Office Visit Eduardo Carter MD [facility] Erectile dysfunction - In-person encounter Office Visit Eduardo Carter MD [facility] - In-person encounter Office Visit Eduardo Carter MD [facility] - In-person encounter Office Visit Eduardo Carter MD [facility] HYPERCHOLESTEROLEMIA? ATRIAL FIB- NOW IN NSRHypertensionHyperlipidemiaAtrial FibrillationLocalized swelling on foot, leftNumbness and tingling, left arm and legOSA, not using CPAPGout - In-person encounter Office Visit Edurado Carter MD [facility] - In-person encounter Office Visit Eduardo Carter MD [facility] Family History of Sudden Cardiac :Family History of Sudden Cardiac :Leg pain - In-person encounter Office Visit Eduardo Carter MD [facility] - In-person encounter Office Visit Edaurdo Carter MD [facility] ARTHRITIS - RIGHT KNEE - In-person encounter Office Visit Eduardo Carter MD [facility] CAD-03/22 NUC NEGCALF PAIN, RIGHT-10/21 LINDA NEGDYSPNEA ON EXERTION- 04/22 ECHO E F 65 - In-person encounter Office Visit Eduardo Carter MD [facility] SHORTNESS OF BREATH-10/21 ROSELINE MOD REST - In-person encounter Office Visit Eduardo Carter MD [facility] - In-person encounter Office Visit Eduardo Carter MD [facility] CALF PAIN, RIGHT-10/21 LINDA NEGDYSPNEA ON EXERTION- 04/22 ECHO E F 65 - In-person encounter Office Visit Eduardo Carter MD [facility] ACNE ROSACEA, HX OF- ON DOXYCYCLINE - In-person encounter Office Visit Eduardo Carter MD [facility] CAD-03/22 NUC NEGTIAOBESITY? ATRIAL FIB- NOW IN NSR VITAL SIGNS Date Observation Value Provider Body Mass Index (Ratio) 35.51 kg/m2 Shaggy Carter MD blood pressure, diastolic 70 mm[Hg] Liberty Henriquez blood pressure, systolic 100 mm[Hg] Jacquelin Henriquez oxygen saturation, oximetry 95 % Kelly Henriquez pulse rate 65 /min Kelly Henriquez respiratory rate E&M 13 /min Kelly Henriquez weight E&M 220 [lb_av] Kelly Henriquez height E&M 66 [in_i] Kelly Henriquez blood pressure, cuff size regular Liberty casillas Henriquez Body Mass Index (Ratio) 35.02 kg/m2 Shaggy Carter MD blood pressure, cuff size regular Ke rri Gruenenfelder blood pressure, diastolic 84 mm[Hg] Ke rri Gruenenfelder blood pressure, systolic 124 mm[Hg] Eleni ri Jigneshuenenfelder oxygen saturation, oximetry 96 % Amanda Jigneshuenenfvikaer pulse rate 62 /min Amanda Gruenenfe [facility] weight E&M 217 [lb_av] Amanda Gruenenfe lder height E&M 66 [in_i] Amanda Gruenenfe Body Mass Index (Ratio) 34.70 kg/m2 Shaggy Carter MD blood pressure, diastolic -1 mm[Hg] Verna nkLogic blood pressure, systolic 128 mm[Hg] Carmen og blood pressure, diastolic 78 mm[Hg] Jax rret blood pressure, systolic 128 mm[Hg] Shayne ret pulse rate 89 /min Daniel y blood pressure, cuff size regular Jax rret oxygen saturation, oximetry 95 % Daniel respiratory rate E&M 16 /min Daniel weight E&M 215 [lb_av] Daniel y height E&M 66 [in_i] Daniel y Body Mass Index (Ratio) 34.86 kg/m2 Shaggy Carter MD blood pressure, diastolic 90 mm[Hg] Verna nkLogade blood pressure, systolic 128 mm[Hg] Carmen Brantley blood pressure, cuff size regular Ja rret blood pressure, diastolic 90 mm[Hg] Ja rret blood pressure, systolic 128 mm[Hg] Shayne dejesus pulse rate 85 /min Daniel y oxygen saturation, oximetry 98 % Daniel respiratory rate E&M 12 /min Daniel weight E&M 216 [lb_av] Daniel y height E&M 66 [in_i] Daniel y Body Mass Index (Ratio) 34.86 kg/m2 Shaggy Carter MD blood pressure, diastolic 85 mm[Hg] mahogany Ramirez blood pressure, systolic 130 mm[Hg] [facility] vandana Ramirez oxygen saturation, oximetry 98 % Joyce Ramirez pulse rate 81 /min Joyce Ramirez respiratory rate E&M 18 /min Joyce Ramirez blood pressure, cuff size regular mahogany Ramirez weight E&M 216 [lb_av] Joyce Ramirez height E&M 66 [in_i] Joyce Ramirez Body Mass Index (Ratio) 35.02 kg/m2 Shaggy Carter MD blood pressure, cuff size large Mi paul Nieto blood pressure, diastolic 74 mm[Hg] Mi paul [place] blood pressure, systolic 136 mm[Hg] [facility] helswati Nieto oxygen saturation, oximetry 97 % Katie Nieto respiratory rate E&M 16 /min Dodie Nieto pulse rate 83 /min Katie maher weight E&M 217 [lb_av] Katie maher height E&M 66 [in_i] Katie maher Body Mass Index (Ratio) 34.54 kg/m2 Edd mendes Nacht blood pressure, diastolic 80 mm[Hg] Li nkLogic blood pressure, systolic 137 mm[Hg] Carmen kLogic blood pressure, diastolic 80 mm[Hg] Ca therine Voca blood pressure, systolic 137 mm[Hg] Cat herine Voca oxygen saturation, oximetry 98 % Jane Harrison respiratory rate E&M 14 /min Catheri ne Voca pulse rate 69 /min Jane Harrison weight E&M 214 [lb_av] Jane Harrison blood pressure, cuff size regular Ca therine Voca height E&M 66 [in_i] Jane Harrison blood pressure, diastolic 83 mm[Hg] Me nia Gaytan blood pressure, systolic 139 mm[Hg] Katy jean Gaytan pulse rate 76 /min Lita Gaytan oxygen saturation, oximetry 96 % Lita Gaytan respiratory rate E&M 14 /min Lita Gaytan Body Mass Index (Ratio) 35.34 kg/m2 Michelle irizarry Gaytan weight E&M 219 [lb_av] Lita Gaytan blood pressure, diastolic 82 mm[Hg] Manjeet Camacho blood pressure, systolic 131 mm[Hg] Kinza Camacho Body Mass Index (Ratio) 34.50 kg/m2 Trini Camacho pulse rate 89 /min John Paul fong oxygen saturation, oximetry 97 % John Paul Camacho respiratory rate E&M 16 /min Scott Camacho weight E&M 213.8 [lb_av] John Paul jasso blood pressure, diastolic 80 mm[Hg] Me nia Gaytan blood pressure, systolic 129 mm[Hg] Katy jean Gaytan Body Mass Index (Ratio) 34.86 kg/m2 Michelle irizarry Gaytan pulse rate 72 /min Lita Gaytan oxygen saturation, oximetry 95 % Lita Gaytan respiratory rate E&M 15 /min Lita Gaytan weight E&M 216 [lb_av] Lita Gaytan Body Mass Index (Ratio) 33.69 kg/m2 Michelle irizarry [facility] blood pressure, diastolic 80 mm[Hg] Me kramer Gaytan blood pressure, systolic 135 mm[Hg] Katy jean Gaytan pulse rate 76 /min Lita Gaytan oxygen saturation, oximetry 97 % Lita Gaytan respiratory rate E&M 16 /min Lita Gaytan weight E&M 208 [lb_av] Lita Gaytan Body Mass Index (Ratio) 35.64 kg/m2 Anea marcus [facility] blood pressure, diastolic, left arm 80 mm [Hg] Aneatris [facility] blood pressure, systolic, left arm 120 mm [Hg] Aneatris [facility] blood pressure, diastolic, right arm 72 m m[Hg] Aneatris [facility] blood pressure, systolic, right arm 118 m m[Hg] Aneatris [facility] blood pressure, diastolic 72 mm[Hg] An eatris [facility] blood pressure, systolic 118 mm[Hg] Ane atris [facility] pulse rate 71 /min Aneatris Brown oxygen saturation, oximetry 98 % Aneatris Brown respiratory rate E&M 18 /min Aneatri s [facility] weight E&M 220 [lb_av] Aneatris Brown Body Mass Index (Ratio) 35.68 kg/m2 Cole Felipe blood pressure, diastolic, left arm 87 mm [Hg] Rubens Felipe blood pressure, systolic, left arm 141 mm [Hg] Rubens Archerran blood pressure, diastolic, right arm 86 m m[Hg] Rubens Archerran blood pressure, systolic, right arm 131 m m[Hg] Rubens Archerran blood pressure, diastolic 87 mm[Hg] Ovallesran blood pressure, systolic 141 mm[Hg] Stewart Archerran pulse rate 83 /min Rubens Archerran oxygen saturation, oximetry 96 % Rubens Archerran respiratory rate E&M 16 /min Rubens Archerran weight E&M 220.25 [lb_av] Rubens Archerr an height E&M 66 [in_i] Rubens Archerran blood pressure, diastolic 78 mm[Hg] He ather Blunt blood pressure, systolic 120 mm[Hg] Hea ther Blunt pulse rate 72 /min Blunt oxygen saturation, oximetry 97 % Ehather Blunt respiratory rate E&M 16 /min Blunt weight E&M 213 [lb_av] Blunt blood pressure, diastolic, left arm 72 mm [Hg] Brandon Manacop blood pressure, systolic, left arm 118 mm [Hg] Brandon [place] blood pressure, diastolic, right arm 68 m m[Hg] Brandon [place] blood pressure, systolic, right arm 110 m m[Hg] Brandon [place] blood pressure, diastolic 68 mm[Hg] Ceci seph [place] blood pressure, systolic 110 mm[Hg] Leandro cahmbers [place] pulse rate 76 /min Brandon [place] oxygen saturation, oximetry 96 % Brandon Man[place]op respiratory rate E&M 16 /min Brandon [place] weight E&M 221 [lb_av] Brandon Manacop blood pressure, diastolic, left arm 69 mm [Hg] [facility] blood pressure, systolic, left arm 113 mm [Hg] [facility] blood pressure, diastolic, right arm 71 m m[Hg] [facility] blood pressure, systolic, right arm 111 m m[Hg] [facility], diastolic 71 mm[Hg] Ceci seph [place] [facility] blood pressure, systolic 111 mm[Hg] Leandro chambers [facility] pulse rate 74 /min [facility] oxygen saturation, oximetry 95 % [facility] respiratory rate E&M 16 /min [facility] weight E&M 214 [lb_av] [facility] blood pressure, diastolic, left arm 82 mm [Hg] Fred Shi RN blood pressure, systolic, left arm 131 mm [Hg] Fred Shi RN blood pressure, diastolic, right arm 69 m m[Hg] Fred Shi RN blood pressure, systolic, right arm 129 m m[Hg] Fred Shi RN blood pressure, diastolic 82 mm[Hg] Jax Shi RN blood pressure, systolic 131 mm[Hg] Fred Shi RN pulse rate 86 /min Fred Shi RN oxygen saturation, oximetry 95 % Fred Shi RN respiratory rate E&M 16 /min Fred lewis RN weight E&M 208 [lb_av] Fred Shi RN ALLERGIES No Known Drug Allergies RESULTS Date Observation Value Provider Reference Range Interpretation Location very low density lipoproteins 78.6 mg/dL Link[facility] 5.0 - 40.0 High LDL/HDL (low-density lipoprotein/high- density lipoprotein) ratio 2.9 RATIO Link[facility] - lipoprotein, beta, serum, point, quantitative, calculated 81.4 (?) [facility] 0.0 - 100.0 HDL cholesterol, serum 28.0 mg/dL [facility] 35.0 - 55.0 Low cholesterol, serum 188.0 mg/dL [facility] 0.0 - 200.0 triglyceride, serum, fasting 393.0 mg/dL [facility] 0.0 - 150.0 High thyroid stimulating hormone, serum 0.913 ?IU/ML [facility] 0.270 - 4.200 pro brain natriuretic peptide 12.5 pg/mL [facility] 0.0 - 125.0 urea nitrogen/creatini ne ratio, serum 22.7 [facility] - Estimated Glomerular Filtration Rate (calc) 70.3 (?) [facility] 59.0 - chloride, serum 99.6 mmol/L [facility] 98.0 - 107.0 potassium, serum 3.9 mmol/L [facility] 3.5 - 5.1 sodium, serum 144.0 mmol/L [facility] 136.0 - 145.0 creatinine, serum 1.1 mg/dL [facility] 0.7 - 1.2 carbon dioxide, venous blood 29.0 mmol/L [facility] 23.0 - 31.0 calcium, serum 8.8 mg/dL [facility] 8.6 - 10.2 urea nitrogen, blood 25.0 mg/dL [facility] 8.0 - 23.0 High blood glucose, random 102.0 mg/dL [facility] 74.0 - 99.0 High hemoglobin A1C, blood, as % of total hemoglobin 5.8 % OF TOTAL HGB [facility] <5.7 High basophils as percent of blood leukocytes 0.9 % [facility] Normal eosinophils as percent of blood leukocytes 4.8 % [facility] Normal monocyte count, blood 6.6 % [facility] Normal lymphocyte count, blood 17.8 % [facility] Normal neutrophils as percent of blood leukocytes 69.9 % [facility] Normal basophils, absolute, manual 68 cells/mcL [facility] 0-200 Normal eosinophils, absolute, manual 365 cells/mcL [facility] 15-500 Normal monocytes, absolute, manual 502 cells/mcL [facility] 200-950 Normal lymphocytes, absolute 1353 CELLS/UL [facility] 850-3900 Normal Absolute Neutrophil count 5312 cells/mcL [facility] 3627-8938 Normal platelet count 208 THOUSAND/U L [facility] 140-400 Normal red blood cell distribution width 13.8 % [facility] 11.0-15.0 Normal mean corpuscular hemoglobin concentration, RBC 34.5 G/DL [facility] 32.0-36.0 Normal mean corpuscular hemoglobin, RBC 31.6 pg [facility] 27.0-33.0 Normal mean corpuscular volume, RBC 91.8 fL [facility] 80.0-100.0 Normal hematocrit, blood 46.3 % [facility] 38.5-50.0 Normal hemoglobin electrophoresis, blood 16.0 [facility] 13.2-17.1 Normal erythrocyte (RBC) count 5.05 MILLION/UL [facility] 4.20-5.80 Normal leukocyte (white blood cells) count, blood 7.6 THOUSAND/U L [facility] 3.8-10.8 Normal cholesterol/HDL ratio, serum, percent 5.0 (calc) [facility] < OR = 5.0 Normal LDL cholesterol, serum 125 MG/DL (CALC) [facility] <130 Normal triglyceride, serum, fasting 181 mg/dL [facility] <150 High HDL cholesterol, serum 40 mg/dL [facility] > OR = 40 Normal cholesterol, serum 201 mg/dL [facility] 125-200 High LDL/HDL (low-density lipoprotein/high- density lipoprotein) ratio 2.2 RATIO [facility] 0.2-4.3 Normal VLDL cholesterol 24 mg/dL [facility] 8-41 Normal lipoprotein, beta, serum, point, quantitative, calculated 107 mg/dL [facility] 0-130 Normal cholesterol/HDL ratio, serum, percent 3.7 ratio [facility] 1.5-5.6 Normal HDL cholesterol, serum 49 mg/dL [facility] 55 Low triglyceride, serum, fasting 118 mg/dL [facility] Normal cholesterol, serum 180 mg/dL [facility] 0-199 Normal HISTORY OF MEDICATION USE Medication Status Instructions Dates Provider Indications Com ments lisinopril-hydro chlorothiazide 10-12.5 mg tablet active TAKE 1 TABLET BY MOUTH ONCE A DAY Eduardo Carter MD diltiazem HCl (Cardizem CD) 180 mg capsule,extended release 24hr active TAKE 1 CAPSULE BY MOUTH ONCE A DAY TAKE 1 CAPSULE BY MOUTH EVERY DAY Eduardo Carter MD diltiazem HCl 30 mg tablet completed take 1 pill 4 times a day - Eduardo Carter MD atorvastatin 10 mg tablet active TAKE 1 TABLET BY MOUTH EVERY DAY Amanda Solis sildenafil 50 mg tablet active Take 1 tablet by mouth as directed Take 1 tablet by mouth as needed. Eduardo Carter MD atorvastatin unspecified unspecified completed - Amanda Solis Toprol XL 50 mg tablet extended release 24 hr active Take 1 tablet by mouth once a day Take 1 tablet by mouth once daily Eduardo Carter MD rosuvastatin 40 mg tablet completed - Eduardo Carter MD Eliquis 5 mg tablet active Take 1 tablet by mouth twice a day Ct Sal propafenone 325 mg capsule,extended release 12 hr active take 1 pill twice a day [facility] aspirin 81 mg tablet,chewable completed - Jane Voca metoprolol tartrate 50 mg tablet completed - Jane Voca lisinopril-hydro chlorothiazide 20-25 mg tablet completed take 1 pill a day - Eduardo Carter MD metronidazole 0.75% cream completed - Amanda Solis ASPIRIN 81 MG ORAL TABLET completed 1 tablet once a day - Eduardo Carter MD DOXYCYCLINE MONOHYDRATE 50 MG ORAL TABLET completed 1 tab daily - Stewartruthieliberty Felipe Zestoretic 20-25 mg tablet completed 1 tablet by mouth once a day - Eduardo Carter MD CARDIZEM 30 MG ORAL TABLET completed 1 tab PO twice a day - Eduardo Carter MD metoprolol tartrate 50 mg tablet completed 1 tablet by mouth twice a day - Eduardo Carter MD PRAVACHOL 80 MG ORAL TABLET completed 1 tablet once a day - Eduardo Carter MD SOCIAL HISTORY Date Observation Value Provider drug use no Eduardo Carter MD alcohol use no Eduardo Carter MD passive cigarette sm hien exposure no Eduardo Carter MD smoking status Never smoker Eduardo zuniga MD drug use no Eduardo Carter MD alcohol use no Eduardo Carter MD passive cigarette sm hien exposure no Eduardo Carter MD smoking status Never smoker Eduardo zuniga MD drug use no Eduardo Carter MD alcohol use no Eduardo Carter MD passive cigarette sm hien exposure no Eduardo Carter MD smoking status Never smoker Eduardo zuniga MD drug use no Eduardo Carter MD alcohol use no Eduardo Carter MD passive cigarette sm hien exposure no Eduardo Carter MD smoking status Never smoker Eduardo zuniga MD social history E&M Marital Statu s: L daniel with family/friends E thnicity: S moking History: P atient has never smoked. Eduardo Carter MD social history reviewed E&M revi ewed - no changes required Eduardo Carter MD social history reviewed E&M revi ewed - no changes required Eduardo Carter MD social history E&M Marital Statu s: L daniel with family/friends E thnicity: Smoking History: P atjoey has never smoked. Eduardo Carter MD exercise type needs to start walking. Efra Gonzalezand physical exercise, f requency, days per week no Katie Gonzalezand caffeine use, averag e drinks per day yes Katie Gonzalezand passive cigarette sm hien exposure no Katie Gonzalezand smoking status Never smoker Katie Gonzalez [facility] number of grandchildren Eduardo Carter MD social history E&M Marital Statu s: L daniel with family/friends E thnicity: Smoking History: P atjoey has never smoked. Eduardo Carter MD social history reviewed E&M revi ewed - no changes required Eduardo Carter MD smoking status Never smoker Jane Orozco brendan social history reviewed E&M revi ewed - no changes required Eduardo Carter MD exercise type needs to start walking. Katy Gaytan physical exercise, f requency, days per week no Lita Gaytan alcohol use, average drinks per day none Lita Gaytan alcohol use no Lita Gaytan caffeine use, averag e drinks per day yes Lita Gaytan drug use no Lita Gaytan passive cigarette sm hien exposure no Lita Gaytan smoking status Never smoker Lita Stevensonliberty luna social history E&M Marital Statu s: L daniel with family/friends E thnicity: Smoking History: P atjoey has never smoked. Eduardo Carter MD social history reviewed E&M revi ewed - no changes required Eduardo Carter MD exercise type needs to start walking. Kinza Dumontenson physical exercise, f requency, days per week no John Paul Camacho alcohol use, average drinks per day none John Paul Camacho caffeine use, averag e drinks per day yes John Paul Camacho drug use no John Paul Santiago jaidenon passive cigarette sm hien exposure no John Paul Camacho smoking status Never smoker John Paul Love exercise type needs to start walking. Katy Gaytan physical exercise, f requency, days per week no Lita Gaytan alcohol use, average drinks per day none Lita Gaytan caffeine use, averag e drinks per day yes Lita Gaytan drug use no Lita Gaytan passive cigarette sm hien exposure no Lita Gaytan smoking status Never smoker Lita Bergeron cheryl social history reviewed E&M reviewed Eduardo Carter MD exercise type needs to start walking. Petr Carter MD social history reviewed E&M reviewed Fred Shi RN drug use no Rubens Felipe passive cigarette sm hien exposure no Rubens Felipe smoking status never smoker Heather Mckinley social history reviewed E&M reviewed Heather Mckinley social history reviewed E&M reviewed Fred Shi RN social history reviewed E&M reviewed Eduardo Carter MD social history E&M Marital Statu s: L daniel with family/friends E thnicity: Fred Shi RN smoking status Non-Smoker Fred Shi RN social history reviewed E&M reviewed Fred Shi RN physical exercise, f requency, days per week no LinkLogic caffeine use, averag e drinks per day yes LinkLogic alcohol use, average drinks per day none LinkLog number of years as a smoker 10 years or m ore [facility] MENTAL STATUS Date Observation Value Provider assessment of judgme nt and insight E&M Alert and oriented to time, place and person. Mood and affect are normal. Eduardo Carter MD assessment of judgme nt and insight E&M Alert and oriented to time, place and person. Mood and affect are normal. Fred Shi RN assessment of judgme nt and insight E&M Alert and oriented to time, place and person. Mood and affect are normal. Heather Mckinley assessment of judgme nt and insight E&M Alert and oriented to time, place and person. Mood and affect are normal. Fred Shi RN assessment of judgme nt and insight E&M Alert and oriented to time, place and person. Mood and affect are normal. Eduardo Carter MD assessment of judgme nt and insight E&M Alert and oriented to time, place and person. Mood and affect are normal. Fred Shi RN FAMILY HISTORY Family Member Condition Mother Family History of Youssef dden Cardiac : Father Family History of Youssef dden Cardiac : INSURANCE PROVIDERS Payer name Policy type / Coverage type [place] red green party ID [facility] [id number] (R EGIONAL PPO C-SNP) Medicare [id number] [facility] Medicaid 2 [id number] ADVANCE DIRECTIVES Name Date DISCUSSED - NO DECISION MADE TREATMENT PLAN Date Name Performer [id number],C, N ot on CPAP. Eduardo Carter MD [id number],C,No recurrence of swelling. Eduardo Carter MD [id number],C, H e is not on any lipid-lowering medication. Eduardo Carter MD [id number],C,B lood pressure control is satisfactory. Eduardo Carter MD [id number],C, C ontinuous on eliquis for anti-coagulation. No bleeding. Eduardo Carter MD [id number],S,Not on CPAP. Eduardo Carter MD [id number],S,Mild left adela d and ankle edema. Eduardo Carter MD [id number],S,We will check uric acid. Eduardo Carter MD [id number],S,H e is not on any lipid-lowering medication. We will check lipid panel and blood work. Eduardo Carter MD [id number],S,E KG today shows afib. Continuous on eliquis for anti-coagulation. Eduardo Carter MD [id number],S,B lood pressure control is satisfactory. We will change metoprolol to Toprol XL 50mg daily because he prefers to take one pill per day. Continues on lisinopril-HCTZ. Eduardo Carter MD [id number],S, M ild left foot/ankle edema which has been present and stable for a while. Eduardo Carter MD [id number],S, P t. states he had a workup a couple months ago in [place]. Eduardo Carter MD [id number],S, N ot using CPAP. Encouraged compliance. Eduardo Carter MD [id number],S, E KG today shows afib, HR 78. Continues on eliquis for OAC. He says his last echo was 3-4 months ago. 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 Eduardo Carter MD [id number],S, B lood pressure control is satisfactory. Eduardo Carter MD [id number],S, H is pravachol was recently discontinued but was not replaced with another lipid-lowering agent. We will request recent labwork from your office. Eduardo Carter MD [id number],S, N o recurrence. No residual deficits. Eduardo Carter MD [id number],S, W eight loss advised. Eduardo Carter MD Cardiology:Pt presen ortiz with swelling of the left still V enous US from november showed no evidence of venous insufficiency Eduardo Carter MD Cardiology:Pt presented with swe lling of the feet. Eduardo Carter MD Cardiology:continues to snore, will plan for a home sleep study to assesss for sleep apnea. O rders: S leep Study Home (CPT-[id number]) Eduardo Carter MD Cardiology:REDUCE DO SE OF LISINOPRIL HCTZ IN HALF TO 10 MG/12.5 MG once daily since his BP was low today B P today: 100/70 P rior BP: 124/84 (11/18/2024) H is updated medication list for this problem includes: Lisinopril-hydrochlorothiazide 10-12.5 Mg Tablet (Lisinopril-hydrochlorothiazide) ..... Take 1 tablet by mouth once a day Diltiazem Hcl (cardizem Cd) 180 Mg Capsule,extended Release 24hr (Diltiazem hcl (cardizem cd)) ..... Take 1 capsule by mouth once a day take 1 capsule by mouth every day Toprol Xl 50 Mg Tablet Extended Release 24 Hr (Metoprolol succinate) ..... Take 1 tablet by mouth once a day take 1 tablet by mouth once daily Eduardo Carter MD Cardiology: r emains in AFib; rate is controlled. Takes eliquis 5 mg twice daily. C ontinue diltiazem ER 180 mg daily . Eduardo Carter MD Cardiology: N ot on CPAP; will check sleep study after recovery from covid. Eduardo Caretr MD Cardiology:Has troub le walking d/t his leg pain will check and venous doppler refux study. Eduardo Carter MD Cardiology:stop prav astatin and see if leg pain sx improve. Eduardo Carter MD Cardiology:stable; c ontinue to monitor. B P today: 124/84 P rior BP: 128/-1 (02/19/2024) Labs Reviewed: C reat: 1.1 (08/18/2015) C hol: 188.0 (08/18/2015) HDL: 28.0 (08/18/2015) LDL: 81.4 (?) (08/18/2015) T.0 (08/18/2015) His updated medication list for this problem includes: Lisinopril-hydrochlorothiazide 20-25 Mg Tablet (Lisinopril-hydrochlorothiazide) ..... Take 1 pill a day Diltiazem Hcl 30 Mg Tablet (Diltiazem hcl) ..... Take 1 pill 4 times a day Toprol Xl 50 Mg Tablet Extended Release 24 Hr (Metoprolol succinate) ..... Take 1 tablet by mouth once a day take 1 tablet by mouth once daily Eduardo Carter MD Cardiology:remains i n AFib; rate is controlled. Takes eliquis 5 mg twice daily. Start diltiazem ER 180 mg daily after finishing current supply of non Extended release. Eduardo Carter MD Cardiology: B P today: 128/78 P rior BP: 128/90 (07/25/2023) His updated medication list for this problem includes: Toprol Xl 50 Mg Tablet Extended Release 24 Hr (Metoprolol succinate) ..... Take 1 tablet by mouth once a day take 1 tablet by mouth once daily Lisinopril-hydrochlorothiazide 20-25 Mg Tablet (Lisinopril-hydrochlorothiazide) T his visit has been a part of the consistent, comprehensive, and ongoing management of the chronic medical condition(s) listed above for the patient. Eduardo Carter MD Cardiology:Reported swelling today - says when his weight exceeds around 210 starts to notice swelling. Will arrange for a venous doppler to rule out venous insuffieceincy Eduardo Carter MD Cardiology:Reported swelling today - says when his weight exceeds around 210 starts to notice swelling Eduardo Carter MD Cardiology: C ontinuous on eliquis for anti-coagulation. No bleeding. Eduardo Carter MD Cardiology:Aim for a n LDL below 70. His updated medication list for this problem includes: Atorvastatin Unspecified Unspecified (Atorvastatin) Eduardo Carter MD Cardiology: B P today: 128/78 P rior BP: 128/90 (07/25/2023) His updated medication list for this problem includes: Toprol Xl 50 Mg Tablet Extended Release 24 Hr (Metoprolol succinate) ..... Take 1 tablet by mouth once a day take 1 tablet by mouth once daily Lisinopril-hydrochlorothiazide 20-25 Mg Tablet (Lisinopril-hydrochlorothiazide) Eduardo Carter MD Cardiology: N o recurrence. No residual deficits. Eduardo Carter MD Cardiology: H is updated medication list for this problem includes: Atorvastatin Eduardo Carter MD Cardiology:Blood pre ssure control is satisfactory. BP today: 128/90 P rior BP: 130/85 (01/15/2023) His updated medication list for this problem includes: Toprol Xl 50 Mg Tablet Extended Release 24 Hr (Metoprolol succinate) ..... Take 1 tablet by mouth once a day take 1 tablet by mouth once daily Lisinopril-hydrochlorothiazide 20-25 Mg Tablet (Lisinopril-hydrochlorothiazide) Eduardo Carter MD Cardiology:Given the Rx of sildenafil. Advised caution of using nitro which will cause dangerously low blood pressure Eduardo Carter MD Cardiology:Recommend that the patient starts a GLP-1 agonist for weight loss. I have instrtucted the patient to consult his primary care physician for this. Eduardo Carter MD Cardiology:Continuou s on eliquis for anti-coagulation. No bleeding. Eduardo Carter MD Cardiology: N ot on CPAP. Eduardo Carter MD Cardiology:No recurrence of swel ling. Eduardo Carter MD Cardiology: H e is not on any lipid-lowering medication. Eduardo Carter MD Cardiology:Blood pressure contro l is satisfactory. Eduardo Carter MD Cardiology: C ontinuous on eliquis for anti-coagulation. No bleeding. Eduardo Carter MD Cardiology:Not on CPAP. Eduardo Carter MD Cardiology:Mild left food and an kle edema. Eduardo Carter MD Cardiology:We will check uric ac id. Eduardo Carter MD Cardiology:He is not on any lipid-lowering medication. We will check lipid panel and blood work. Eduardo Carter MD Cardiology:EKG today shows afib. Continuous on eliquis for anti-coagulation. Eduardo Carter MD Cardiology:Blood pre ssure control is satisfactory. We will change metoprolol to Toprol XL 50mg daily because he prefers to take one pill per day. Continues on lisinopril-HCTZ. Eduardo Carter MD Cardiology: M ild left foot/ankle edema which has been present and stable for a while. Eduardo Carter MD Cardiology: P t. states he had a workup a couple months ago in [place]. Eduardo Carter MD Cardiology: N ot using CPAP. Encouraged compliance. Eduardo Carter MD Cardiology: E KG today shows afib, HR 78. Continues on eliquis for OAC. He says his last echo was 3-4 months ago. 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 Eduardo Carter MD Cardiology: B lood pressure control is satisfactory. Eduardo Carter MD Cardiology: H is pravachol was recently discontinued but was not replaced with another lipid-lowering agent. We will request recent labwork from your office. Eduardo Carter MD Cardiology: N o recurrence. No residual deficits. Eduardo Carter MD Cardiology: W eight loss advised. Eduardo Carter MD Cardiology:On Pravachol. Noé Carter MD Cardiology:Remains in sinus rhyt hm. Eduardo Carter MD Cardiology:Weight loss advised. Eduardo Carter MD Cardiology:No recurrence. No res idual deficits. Eduardo Carter MD fu Eduardo Maher fu Eduardo Maher fu: H is updated medication list for this problem includes: Pravachol 80 Mg Tabs (Pravastatin sodium) ..... 1 tab daily Eduardo Carter MD fu: H is updated medication list for this problem includes: Metoprolol Tartrate 50 Mg Tabs (Metoprolol tartrate) ..... 1 tab po bid Zestoretic 20-25 Mg Tabs (Lisinopril-hydrochlorothiazide) ..... 1 tablet by mouth daily Aspirin 81 Mg Tabs (Aspirin) ..... One tab. daily Eduardo Carter MD fu: H is updated medication list for this problem includes: Aspirin 81 Mg Tabs (Aspirin) ..... One tab. daily Eduardo Carter MD fu: H is updated medication list for this problem includes: Metoprolol Tartrate 50 Mg Tabs (Metoprolol tartrate) ..... 1 tab po bid Zestoretic 20-25 Mg Tabs (Lisinopril-hydrochlorothiazide) ..... 1 tablet by mouth daily Aspirin 81 Mg Tabs (Aspirin) ..... One tab. daily Orders: E KG ([id number]) Eduardo Carter MD follow up: H is updated medication list for this problem includes: Pravachol 80 Mg Tabs (Pravastatin sodium) ..... 1 tab daily H as been off his more controlled diet over the past month, and will go back on his healthy eating habits. Eduardo Carter MD follow up: H is updated medication list for this problem includes: Metoprolol Tartrate 50 Mg Tabs (Metoprolol tartrate) ..... 1 tab po bid Zestoretic 20-25 Mg Tabs (Lisinopril-hydrochlorothiazide) ..... 1 tablet by mouth daily Aspirin 81 Mg Tabs (Aspirin) ..... One tab. daily T his has improved and is no longer a problem. He is snoring therefore I would schedule for a sleep study. Eduardo Carter MD Date Name Sleep Study Titratio n Sleep Study Home Venous Doppler Bilat eral LE Venous Doppler Bilat eral LE - Reflux Venous Doppler Bilat eral LE - Reflux Stress Regadenoson LIPID PANEL Stress Routine URIC ACID COMPREHENSIVE METABO LIC PANEL, W/EGFR PROBNP, N TERMINAL LIPID PANEL TSH, 3RD GENERATION B TYPE NATRIURETIC P EPTIDE (BNP) BASIC METABOLIC PANE L W/EGFR DLCO Order - [id number] FRC Order - [id number] FVC Order - [id number] HEMOGLOBIN A1c CBC (H/H, RBC, INDIC ES, WBC, PLT) LIPID PANEL COMPREHENSIVE METABO LIC PANEL W/EGFR Full PFT Arterial Duplex Bi-L ower EX LIPID PANEL Sleep Study Spirometry Venous Doppler Bilat eral LE Arterial Duplex Bi-L ower EX Complete Echo Stress Test - [place] ine Carotid Duplex Bilat eral Spirometry Holter Monitor 24 Hr Complete Echo HISTORY OF PROCEDURES Procedure Date Procedure Name Provider Procedure Notes S tatus Complex e/m visit add on Eduardo Carter MD completed EKG Edurado Carter MD complet ed Complex e/m visit add on Eduardo Carter MD completed EKG Eduardo Carter MD complet ed Complex e/m visit add on Eduardo Carter MD completed EKG Eduardo Carter MD complet ed EKG Eduardo Carter MD complet ed EKG Eduardo Carter MD complet ed EKG Eduardo Carter MD complet ed BLOOD COUNT HEMOGLOBIN Eduardo Carter MD completed FVC - [id number] Eduardo Carter MD comple ortiz FRC - [id number] Eduardo Carter MD comple ortiz DLCO - [id number] Eduardo Carter MD compl eted SNOMED-CT: 289840412 Smoking Cessation Counseling Eduardo Carter MD completed SNOMED-CT: 42666650 Physical Exam, Performed: Pulse Exam of Foot Eduardo Carter MD completed EKG Eduardo Carter MD complet ed SNOMED-CT: 135378146 506309 Current Medications Documented Eduardo Carter MD completed EKG Eduardo Carter MD complet ed EKG Eduardo Carter MD complet ed EKG Eduardo Carter MD complet ed EKG Eduardo Carter MD complet ed EKG Edaurdo Carter MD complet ed ePrescribe - Check t his box if eRx is used Eduardo Carter MD completed EKG Eduardo Carter MD complet ed
--- NOTE | 2025-01-25 21:13 | ED_ITS ---
HPI - Nausea/Vomiting/Diarrhea General Chief complaint: Nausea/Vomiting/Diarrhea Stated complaint: diarrhea Time Seen by Provider: 01/25/25 20:37 History of Present Illness HPI Narrative: Patient presenting here with persistent nausea, vomiting, diarrhea since Saturday, he has no abdominal pain. Does feel dehydrated and gassy but has been trying to keep hydrated with Gatorade, no fevers or chills. Nausea has resolved but diarrhea is persistent. Related Data Home Medications ?Medication ?Instructions ?Recorded ?Confirmed ?Last Taken ?Type allopurinol 300 mg tablet mg 07/05/24 Unknown History apixaban 5 mg tablet (Eliquis) mg 07/05/24 Unknown History atorvastatin 10 mg tablet mg 07/05/24 Unknown History lisinopril 20 tablet 07/05/24 Unknown History mg-hydrochlorothiazide 25 mg tablet metoprolol succinate 50 mg mg PO 07/05/24 Unknown History tablet,extended release 24 hr naproxen 500 mg tablet mg 07/05/24 Unknown History omeprazole 20 mg capsule,delayed mg 07/05/24 Unknown History release propafenone 325 mg mg PO 07/05/24 Unknown History capsule,extended release 12 hr Allergies Allergy/AdvReac Type Severity Reaction Status Date / Time No Known Allergies Allergy Verified 11/05/24 11:27 Review of Systems 2 Review of Systems: All systems reviewed & are unremarkable except as noted in HPI and below Exam 2 Narrative: EXAMINATION OF ORGAN SYSTEMS/BODY AREAS: Constitutional: Vital signs per nursing GENERAL:[No acute distress, non-toxic appearing.] HEAD: Normal with no signs of head trauma. EYES: EOMI, conjunctiva normal ENT: Hearing grossly intact LUNGS: Nonlabored breathing. HEART: [Regular rate and rhythm] ABD: [Soft], [nontender to palpation] EXT: Normal range of motion SKIN: [No rashes or lesions.] NEURO: [Alert and oriented x 3. No gross focal sensory or strength deficits.] PSYCH: Normal affect Course Vital Signs Vital signs: Vital Signs Temperature 98.0 F 01/25/25 18:32 Pulse Rate 79 01/25/25 18:32 Respiratory Rate 18 01/25/25 18:32 Blood Pressure 112/75 01/25/25 18:32 Pulse Oximetry 97 01/25/25 18:32 Oxygen Delivery Room Air 01/25/25 18:32 Temperature 98.0 F 01/25/25 18:32 Pulse Rate 79 01/25/25 18:32 Respiratory Rate 18 01/25/25 18:32 Blood Pressure 112/75 01/25/25 18:32 Pulse Oximetry 97 01/25/25 18:32 Oxygen Delivery Room Air 01/25/25 18:32 MDM - Nausea/Vomiting/Diarrhea Medical Records Medical records narrative: Patient presents nausea, vomiting, diarrhea, for days with some bloated sensation. On exam he is very well-appearing, abdomen soft nontender. I have no baseline to compare but Labs do show creatinine 1.4 and BUN 28 with some ketones in urine indicating possible dehydration, IV fluids given, as well as business,, and ammonia, and on re-evaluation, patient states he feels much better. Symptoms have resolved. I did offer additional bolus however he really wants to go home now, I have let him know he should keep hydrated with Pedialyte or Gatorade as needed, and that he feels worse or if he does not improve with the prescriptions over the next few days he can always return to the emergency room. He can follow up with his doctor. Patient and family at bedside agreeable to plan. Lab Data 01/25/25 20:03 01/25/25 20:03 Labs: Lab Results 01/25/25 01/25/25 Range/Units 20:03 20:08 WBC 10.3 H (4.5-10.0) K/mm3 RBC 4.89 (4.6-6.20) M/mm3 Hgb 14.9 (14.0-18.0) g/dL Hct 45.5 (42.0-52.0) % MCV 93.0 (80-100) fl MCH 30.5 (26-34) pg MCHC 32.7 (32-36) g/dl RDW 13.6 (11.5-14.5) % Plt Count 230 (150-375) k/mm3 MPV 10.7 H (7.4-10.4) fl Immature Gran % (Auto) 0.4 (0-0.5) % Neut % (Auto) 70.7 (45.5-73.1) % Lymph % (Auto) 17.6 L (18.3-44.2) % [place] % (Auto) 8.7 H (2.6-8.5) % Eos % (Auto) 1.9 (0-4.4) % Baso % (Auto) 0.7 (0.2-1.2) % Lymph # (Auto) 1.81 (0.9-3.2) K/mm3 [place] # (Auto) 0.9 H (0.1-0.6) K/mm3 Eos # (Auto) 0.2 (0-0.3) K/mm3 Baso # (Auto) 0.1 (0.0-0.1) K/mm3 Abs Immat Gran (auto) 0.04 H (0.00-0.031) K/mm3 Absolute Neuts (auto) 7.3 H (1.3-6.7) K/mm3 Absolute Nucleated RBC 0.000 (0.0-0.012) K/mm3 Nucleated RBC % 0.0 (0.0-0.2) % Sodium 136 L (137-145) mmol/L Potassium 3.5 (3.4-5.0) mmol/L Chloride 102 (98-107) mmol/L Carbon Dioxide 22 (22-30) mmol/L Anion Gap 12 (4-12) mmol/L BUN 28 H (9-20) mg/dL Creatinine 1.42 H (0.7-1.3) mg/dL Estim Creat Clear Calc 44 ml/min Estimated GFR 48 L (59 - ) Glucose 94 (65-110) mg/dL Calcium 9.1 (8.4-10.2) mg/dL Total Bilirubin 0.9 (0.2-1.3) mg/dL AST 28 (17-59) U/L ALT 24 (6-50) U/L Alkaline Phosphatase 102 (38-126) U/L Total Protein 7.4 (6.3-8.2) g/dL Albumin 4.2 (3.5-5.1) g/dL Lipase 83 (23-300) U/L Urine Color Yellow (Yellow) Urine Appearance Clear (Clear) Urine pH 5.5 (5.0-9.0) Ur Specific [place] 1.020 (1.001-1.035) Urine Protein Trace (Negative) mg/dL Urine Glucose (UA) Negative (Negative) mg/dL Urine Ketones Trace H (Negative) mg/dL Ur Blood (Man) Negative (Negative) Urine Nitrate Negative (Negative) Urine Bilirubin Negative (Negative) Urine Urobilinogen 0.2 (<2.0) mg/dL Leukocyte Esterase Rfl Negative (Negative) ADARSH/UL Urine RBC 0-2 (0-2) /hpf Urine WBC 0-5 (0-3) /hpf Ur Squamous Epith Cells None seen (Few) /hpf Urine Bacteria None seen /hpf Urine Casts 0-2 Discharge Plan Discharge Clinical Impression: Nausea, vomiting, and diarrhea Patient Disposition: Home Condition: Stable Instructions: Dehydration (ED), Acute Nausea and Vomiting (ED), Acute Diarrhea (ED) Additional Instructions: Please follow up with your doctor; you can always return for any further issues. Make sure you are keeping hydrated and eat bland foods. You can try the medications as prescribed. Patient Language: Somali Prescriptions: New famotidine 20 mg tablet 20 mg PO DAILY Qty: 30 0RF dicyclomine 20 mg tablet 20 mg PO TID PRN (Reason: abdominal pain) Qty: 30 0RF alum-mag hydroxide-simeth [Maalox Advanced] 200-200-20 mg/5 mL suspension 10 ml PO QID PRN (Reason: dyspepsia) Qty: 200 0RF Rx Instructions: administer between meals and at bedtime ondansetron 4 mg tablet,disintegrating 4 mg PO Q8H PRN (Reason: nausea and vomiting) Qty: 10 0RF loperamide [Imodium A-D] 2 mg capsule 2 mg PO Q6H PRN (Reason: loose stool) Qty: 14 0RF No Action atorvastatin 10 mg tablet metoprolol succinate 50 mg tablet extended release 24 hr PO omeprazole 20 mg capsule,delayed release(DR/EC) lisinopril-hydrochlorothiazide 20-25 mg tablet allopurinol 300 mg tablet naproxen 500 mg tablet propafenone 325 mg capsule,extended release 12 hr PO Eliquis 5 mg tablet Follow-up/Referrals: Trae,CHINEDU Pearson [Primary Care Provider] -
[2025-01-25] MEDS: MAG HYDROX/AL HYDROX/SIMETH 30 ML UDC PO (21:30)
[2025-01-25] MEDS: BISMUTH SUBSALICYLATE 262 MG CHEWABLE TABLET 524 MG PO (21:31)
[2025-01-25] MEDS: LOPERAMIDE HCL 2 MG CAPSULE 4 MG PO (22:13)
[2025-01-25] MEDS: LACTATED RINGERS 1,000 ML 999 ML IV CONT (22:13)
[2025-01-25 23:07] VITALS: BP 100/66; PULSE 87; RESP 16; O2SAT 99
== END 2025-01-25 23:11 | disposition home or self-care (01) ==
PROVIDERS: Emergency Provider Emergency Medicine; PCP Physician Assistant
DX: R11.2 Nausea with vomiting, unspecified (principal); R19.7 Diarrhea, unspecified
CPT/HCPCS: 36415; 80053; 81001; 83690; 85025; 96360; 99283; A9270; J7120

== ENCOUNTER 2025-03-18 19:16 | Observation (INO) | payer MEDICARE, MEDICAID, SELFPAY ==
[2025-03-18] VITALS (17 sets, daily range): BP systolic 79–110; BP diastolic 57–79; PULSE 69–121; RESP 17–31; TEMP 36.7; O2SAT 96–99
--- NOTE | ~2025-03-18 | NM_ITS ---
EXAMINATION: NM kina stress w perfusion DATE: 03/19/2025 12:26 INDICATION: Chest pain. Heart score of 4 TECHNIQUE: Rest images were obtained following intravenous administration of 9.2 mCi Tc99m tetrofosmi n (Myoview). The patient was infused intravenously with Lexiscan (Regadenoson). Then, 32 mCi Tc99m te trofosmin (Myoview) was administered intravenously, and stress images were obtained. Data was reconst ructed into short axis and horizontal and vertical long axis SPECT images. Gated SPECT images were al so obtained. COMPARISON: None. FINDINGS: There is no definite reversible or fixed perfusion abnormality to suggest ischemia or infar ction. There is normal left ventricular chamber size, wall motion and ejection fraction. Left ventr icular ejection fraction measures >70%. IMPRESSION: 1. Normal myocardial perfusion at rest and during stress. 2. Left ventricular ejection fraction measuring >70%. Reviewed, dictated and finalized at location A.
--- NOTE | ~2025-03-18 | XR_ITS ---
CHEST RADIOGRAPH, PA AND LATERAL CLINICAL HISTORY: CP x 2 days . COMPARISON: 11/05/2024 TECHNIQUE: PA and lateral views of the chest. FINDINGS The cardiomediastinal silhouette is enlarged, unchanged. The lungs are clear. IMPRESSION: No focal infiltrate or effusion. Reviewed, dictated and finalized at location A.
--- OUTSIDE RECORDS SUMMARY | 2025-03-18 19:18 | XMS_ITS | Clinical Summary ---
Author Organization [facility] Address [address] [place] [address] Care Team Providers Care Rn Pain Management Name Role Phone Dorys Driscoll MD Primary Care Provider [phone] Source Comments [facility] [employer],non-owned Affiliates and Associated Physician Practices is amultiple site organization consisting of ambulatory clinics and hospital sitesin [place], [place], [place] and [place]. This disclosure is being madepursuant to the Care Everywhere program and may not contain all information available regarding this patient. 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
--- OUTSIDE RECORDS SUMMARY | 2025-03-18 19:18 | XMS_ITS | Clinical Summary ---
Author Organization [facility] Address [address] [address] Care Team Providers Care Switch Adjuster Name Role Phone Chance Larkin Primary Care Provider [phone] Encounters Date Type Department Care Team Description 12/31/2024 Documentation Only [facility], [address] [address] ProviderAriela MD from Last 3 [...] PCV20, or PCV21) 07/06/2017 05/11/2017 Influenza Vaccine (#1) 2025 Hepatitis B Vaccine Aged Out No longe r eligible based on patient's age to complete this topic Insurance UHC Medicare Medicaid [place] Care Teams Switch Adjuster Relationship Specialty Start Date End Date Chance Larkin PA [address] [place] [address] PCP - General Physician Medical Stenographer 12/31/24
[2025-03-18 19:39] LABS: Hematocrit 46.8 % (42.0-52.0); Hemoglobin 15.4 g/dL (14.0-18.0); Immature Granulocyte Percent A 0.3 % (0-0.5); Lymphocytes Absolute Auto 2.08 K/mm3 (0.9-3.2); Mean Corpuscular HGB Conc 32.9 g/dl (32-36); Mean Corpuscular Hemoglobin 30.0 pg (26-34); Mean Corpuscular Volume 91.1 fl (80-100); Nucleated Red Blood Cells Absolute Auto 0.000 K/mm3 (0.0-0.012); Nucleated Red Blood Cells Perc 0.0 % (0.0-0.2); Platelet Count Result 191 k/mm3 (150-375); Red Blood Count 5.14 M/mm3 (4.6-6.20); White Blood Count 11.4 K/mm3 (4.5-10.0)
[2025-03-18 19:49] LABS: INR 1.5; Prothrombin Time 18.1 Seconds (11.1-14.7)
[2025-03-18 19:50] LABS: Partial Thromboplastin Time 21.8 Seconds (22.3-36.8)
[2025-03-18 19:54] LABS: Alanine Aminotransferase 19 U/L (6-50); Albumin Level 3.9 g/dL (3.5-5.1); Alkaline Phosphatase 104 U/L (38-126); Anion Gap 10 mmol/L (4-12); Aspartate Amino Transferase 25 U/L (17-59); Bilirubin,Total 1.1 mg/dL (0.2-1.3); Blood Urea Nitrogen 51 mg/dL (9-20); Calcium 9.1 mg/dL (8.4-10.2); Carbon Dioxide 30 mmol/L (22-30); Chloride 99 mmol/L (98-107); Estimated CRCL calculation 34 ml/min; Estimated Glomerular Filt Rate 37; Glucose 98 mg/dL (65-110); Lipase 57 U/L (23-300); Potassium 3.6 mmol/L (3.4-5.0); Sodium 139 mmol/L (137-145); Total Protein 7.2 g/dL (6.3-8.2)
[2025-03-18 20:05] LABS: Troponin I < 0.012 ng/mL (0.000-0.034)
[2025-03-18] MEDS: SODIUM CHLORIDE 0.9% IV 1,000 ML 999 ML IV CONT (22:53)
[2025-03-18 22:59] LABS: Troponin I < 0.012 ng/mL (0.000-0.034)
--- OUTSIDE RECORDS SUMMARY | 2025-03-18 23:15 | XMS_ITS | Clinical Summary ---
Author Organization [facility] Facility Address [address] [address] Care Team Providers Care Medical Transport Specialist Name Role Phone Chance Larkin Primary Care Provider Encounters Date Type Department Care Team Description 12/31/2024 Documentation Only [facility], [address] [address] ProviderAriela MD from Last 3 [...] Insurance UHC Medicare Medicaid [place] Care Teams Medical Transport Specialist Relationship Specialty Start Date End Date Chance Larkin PA [address] [place] [address] PCP - General Physician Plate Glass Grinder 12/31/24
--- OUTSIDE RECORDS SUMMARY | 2025-03-18 23:16 | XMS_ITS | Clinical Summary ---
Author Organization [facility] Address [address] [place] [address] Care Team Providers Care Day Care Aide Name Role Phone Dorys Driscoll MD Primary Care Provider [phone] Source Comments [facility],non-owned Affiliates and Associated Physician Practices is amultiple site organization consisting of ambulatory clinics and hospital sitesin [place], [place], [place] and [place]. This disclosure is being madepursuant to the Care Everywhere program and may not contain all information available regarding this patient. 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
--- NOTE | 2025-03-18 23:31 | ED.CHESTPAIN ---
HPI - Chest Pain General Chief Complaint: Chest Pain Stated Complaint: Chest pain x 2 days Time Seen by Provider: 03/18/25 23:00 Source: patient and family ( and daughter) Mode of arrival: ambulatory Limitations: language barrier (daughter initially but later interpretive services Sharon #[id number]) History of Present Illness HPI narrative: Patient presents with left sided chest pain of 2 days duration. No cough or nasal congestion but pain worsens with deep inspiration. Chills, to some degree chronic. Slight fatigue. Family notes history of CKD. Had diarrhea a few days ago. Thinks possibly dehydrated. Non radiating but described as stabbing. No history of heart failure. Might have had an echo when admitted elsewhere for pneumonia in but no history stress test or cardiac cath. 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 On AC for atrial fibrillation. No shortness of breath. Feels nauseated but no vomiting. No underlying respiratory issues or edema. Cardiac risk factors HTN: Yes HLD: Yes DM: No Obese: Yes Smoker: No (quit 20+ years ago) Personal history NV/TIA/CVA: TIA Fam Hx NV in first degree relative <65yo: Yes, mother Related Data Home Medications ?Medication ?Instructions ?Recorded ?Confirmed ?Last Taken ?Type allopurinol 300 mg tablet 300 mg PO DAILY 07/05/24 03/19/25 03/18/25 History apixaban 5 mg tablet (Eliquis) 5 mg PO BID 07/05/24 03/19/25 03/18/25 History atorvastatin 10 mg tablet 40 mg PO HS 07/05/24 03/19/25 03/18/25 History metoprolol succinate 50 mg 50 mg PO DAILY 07/05/24 03/19/25 03/18/25 History tablet,extended release 24 hr omeprazole 20 mg capsule,delayed 20 mg PO DAILY 07/05/24 03/19/25 03/18/25 History release propafenone 325 mg 325 mg PO BID 07/05/24 03/19/25 03/18/25 History capsule,extended release 12 hr diltiazem HCl 180 mg 180 mg PO DAILY 03/19/25 03/19/25 03/18/25 History capsule,extended release 24 hr erythromycin 5 mg/gram (0.5 %) eye 1 cm ophthalmic (eye) TID 0803/19/25 03/18/25 History ointment furosemide 20 mg tablet 20 mg PO DAILY 03/19/25 03/19/25 03/18/25 History lisinopril 10 1 tablet PO DAILY 03/19/25 03/19/25 03/18/25 History mg-hydrochlorothiazide 12.5 mg tablet tadalafil 10 mg tablet 10 mg PO DAILY 03/19/25 03/19/25 03/18/25 History Allergies Allergy/AdvReac Type Severity Reaction Status Date / Time No Known Allergies Allergy Verified 03/18/25 19:26 [facility] Past Medical History Medical History CKD (chronic kidney disease) Chronic anticoagulation Atrial fibrillation Family History Family History Mother Acute myocardial infarction <65yo Social History Social History Smoking status: Former smoker Alcohol intake: never Substance use: never Substance use type: does not use Lack of Transportation: No Lack of Food: Never True Current Housing: I Have Housing Concerned About Future Housing: No Difficulty Paying Gas/Electric Bills: No Difficulty Paying for Meds: No Currently Unemployed: No Education: High School Diploma/GED Difficulty w/ Childcare or Family Care: No Spiritual care concerns: No Exam Narrative: GENERAL: Well-appearing, well-nourished, and in no acute distress. HEAD: Normocephalic, atraumatic. EYES: Non injected, non icteric ENT: Nares clear, no rhinorrhea or epistaxis. Gross auditory acuity intact. NECK: Supple. No meningismus. CHEST: Speaking in full sentences. No respiratory distress. Lungs clear to auscultation bilaterally without wheezes or crackles or focal consolidation HEART: Regular rate and rhythm. . ABDOMEN: Soft, nondistended. No rigidity or guarding. Not peritoneal EXTREMITIES: Normal range of motion. No lower extremity edema. SKIN: Warm, dry, no rash. NEURO: No focal deficits. Alert and oriented. Answering questions. Following commands. Normal speech without aphasia or dysarthria. PSYCH: Normal mood and affect. Course Vital Signs Vital signs: Vital Signs Temperature 98.1 F 03/18/25 19:24 Pulse Rate 121 H 03/18/25 19:24 Respiratory Rate 20 03/18/25 19:24 Blood Pressure 110/73 03/18/25 19:24 Pulse Oximetry 99 03/18/25 19:24 Oxygen Delivery Room Air 03/18/25 19:24 Temperature 97.9 F 03/19/25 07:36 Pulse Rate 96 03/19/25 14:00 Respiratory Rate 16 03/19/25 07:36 Blood Pressure 115/69 03/19/25 07:36 Pulse Oximetry 99 03/19/25 07:36 Oxygen Delivery Room Air 03/18/25 23:16 MDM - Chest Pain MDM Narrative Medical decision making narrative: Patient presents with chest pain, left sided x2 days. In the emergency department he is afebrile with vital signs notable for tachycardia. HEART SCORE History 2 highly suspicious 1 moderately suspicious 0 slightly suspicious History score [address] depression/elevation not due to LBBB, LVH, or digoxin [address] depression but LBBB, LVH, nonspecific repolarization changes 0 normal ECG score 0 Age 2 >/= 65 1 45-64 0 <45 Age score 2 Risk factors (HTN, hypercholesterolemia, DM, obesity with BMI >30, current smoker or cessation </=3mo), positive fam hx with parent or sibling with CVD before age 65, atherosclerotic disease (prior NV, PCI/CABG, CVA/TIA, or peripheral arterial disease) 2 >/= 3 risk factors or history of atherosclerotic dz 1 - 1-2 risk factors 0 no known risk factors Risk factor score 2 Initial Troponin 2 >3 times normal limit 1 1-3 times normal limit 0 less than or equal to normal limit Troponin score 0 Total HEART Score 4 Repeat troponin negative. Mild leukocytosis. LARA on CKD, received 1L IV Fluids. Viral swab negative. Dimer WNL. No prior cardiac work up identified. Still having occasional symptoms. Nitro ordered and will admit based on HEART score, though ultimately symptoms favor respiratory over cardiac. Differential Diagnosis Differential diagnosis: Likely stable angina, unstable angina pectoris, atypical chest pain, st elevation myocardial infarction, costochondritis, chest pain, biliary colic and other (acute viral syndrome; pleurisy; heart failure; less likely PE (on anticoagulation); possibly episodes of afib with RVR: MSK) Lab Data Attestation: I reviewed the patient's lab results. 03/19/25 08:21 08/08/25 08:21 Labs: Lab Results 03/18/25 03/18/25 03/18/25 Range/Units 19:32 19:32 22:28 WBC 11.4 H (4.5-10.0) K/mm3 RBC 5.14 (4.6-6.20) M/mm3 Hgb 15.4 (14.0-18.0) g/dL Hct 46.8 (42.0-52.0) % MCV 91.1 (80-100) fl MCH 30.0 (26-34) pg MCHC 32.9 (32-36) g/dl RDW 12.4 (11.5-14.5) % Plt Count 191 (150-375) k/mm3 MPV 10.2 (7.4-10.4) fl Immature Gran % (Auto) 0.3 (0-0.5) % Neut % (Auto) 67.7 (45.5-73.1) % Lymph % (Auto) 18.2 L (18.3-44.2) % [place] % (Auto) 9.5 H (2.6-8.5) % Eos % (Auto) 3.7 (0-4.4) % Baso % (Auto) 0.6 (0.2-1.2) % Lymph # (Auto) 2.08 (0.9-3.2) K/mm3 [place] # (Auto) 1.1 H (0.1-0.6) K/mm3 Eos # (Auto) 0.4 H (0-0.3) K/mm3 Baso # (Auto) 0.1 (0.0-0.1) K/mm3 Abs Immat Gran (auto) 0.03 (0.00-0.031) K/mm3 Absolute Neuts (auto) 7.7 H (1.3-6.7) K/mm3 Absolute Nucleated RBC 0.000 (0.0-0.012) K/mm3 Nucleated RBC % 0.0 (0.0-0.2) % PT 18.1 H (11.1-14.7) Seconds INR 1.5 APTT 21.8 L (22.3-36.8) Seconds D-Dimer (<0.48) ug/mL Sodium 139 (137-145) mmol/L Potassium 3.6 (3.4-5.0) mmol/L Chloride 99 (98-107) mmol/L Carbon Dioxide 30 (22-30) mmol/L Anion Gap 10 (4-12) mmol/L BUN 51 H D (9-20) mg/dL Creatinine 1.80 H (0.7-1.3) mg/dL Estim Creat Clear Calc 34 ml/min Estimated GFR 37 L (59 - ) Glucose 98 (65-110) mg/dL Calcium 9.1 (8.4-10.2) mg/dL Magnesium Cancelled Cancelled Total Bilirubin 1.1 (0.2-1.3) mg/dL AST 25 (17-59) U/L ALT 19 (6-50) U/L Alkaline Phosphatase 104 (38-126) U/L Troponin I < 0.012 < 0.012 (0.000-0.034) ng/mL Total Protein 7.2 (6.3-8.2) g/dL Albumin 3.9 (3.5-5.1) g/dL Lipase 57 (23-300) U/L Urine Color (Yellow) Urine Appearance (Clear) Urine pH (5.0-9.0) Ur Specific [place] (1.001-1.035) Urine Protein (Negative) mg/dL Urine Glucose (UA) (Negative) mg/dL Urine Ketones (Negative) mg/dL Ur Blood (Man) (Negative) Urine Nitrate (Negative) Urine Bilirubin (Negative) Urine Urobilinogen (<2.0) mg/dL Leukocyte Esterase Rfl (Negative) ADARSH/UL Urine RBC (0-2) /hpf Urine WBC (0-3) /hpf Ur Squamous Epith Cells (Few) /hpf Urine Bacteria /hpf Urine Casts Influenza A (RT-PCR) (Negative) Influenza B (RT-PCR) (Negative) RSV (RT-PCR) (Negative) SARS-CoV-2 RNA (RT-PCR) (Negative) 03/19/25 03/19/25 03/19/25 Range/Units 00:11 02:15 02:31 WBC (4.5-10.0) K/mm3 RBC (4.6-6.20) M/mm3 Hgb (14.0-18.0) g/dL Hct (42.0-52.0) % MCV (80-100) fl MCH (26-34) pg MCHC (32-36) g/dl RDW (11.5-14.5) % Plt Count (150-375) k/mm3 MPV (7.4-10.4) fl Immature Gran % (Auto) (0-0.5) % Neut % (Auto) (45.5-73.1) % Lymph % (Auto) (18.3-44.2) % [place] % (Auto) (2.6-8.5) % Eos % (Auto) (0-4.4) % Baso % (Auto) (0.2-1.2) % Lymph # (Auto) (0.9-3.2) K/mm3 [place] # (Auto) (0.1-0.6) K/mm3 Eos # (Auto) (0-0.3) K/mm3 Baso # (Auto) (0.0-0.1) K/mm3 Abs Immat Gran (auto) (0.00-0.031) K/mm3 Absolute Neuts (auto) (1.3-6.7) K/mm3 Absolute Nucleated RBC (0.0-0.012) K/mm3 Nucleated RBC % (0.0-0.2) % PT (11.1-14.7) Seconds INR APTT (22.3-36.8) Seconds D-Dimer 0.38 (<0.48) ug/mL Sodium (137-145) mmol/L Potassium (3.4-5.0) mmol/L Chloride (98-107) mmol/L Carbon Dioxide (22-30) mmol/L Anion Gap (4-12) mmol/L BUN (9-20) mg/dL Creatinine (0.7-1.3) mg/dL Estim Creat Clear Calc ml/min Estimated GFR (59 - ) Glucose (65-110) mg/dL Calcium (8.4-10.2) mg/dL Magnesium 1.8 Total Bilirubin (0.2-1.3) mg/dL AST (17-59) U/L ALT (6-50) U/L Alkaline Phosphatase (38-126) U/L Troponin I < 0.012 (0.000-0.034) ng/mL Total Protein (6.3-8.2) g/dL Albumin (3.5-5.1) g/dL Lipase (23-300) U/L Urine Color Yellow (Yellow) Urine Appearance Clear (Clear) Urine pH 5.5 (5.0-9.0) Ur Specific [place] 1.019 (1.001-1.035) Urine Protein Trace (Negative) mg/dL Urine Glucose (UA) Negative (Negative) mg/dL Urine Ketones 1+ H (Negative) mg/dL Ur Blood (Man) Negative (Negative) Urine Nitrate Negative (Negative) Urine Bilirubin Negative (Negative) Urine Urobilinogen 1.0 (<2.0) mg/dL Leukocyte Esterase Rfl Trace H (Negative) ADARSH/UL Urine RBC 0-2 (0-2) /hpf Urine WBC 0-5 (0-3) /hpf Ur Squamous Epith Cells None seen (Few) /hpf Urine Bacteria None seen /hpf Urine Casts 0-2 Influenza A (RT-PCR) Negative (Negative) Influenza B (RT-PCR) Negative (Negative) RSV (RT-PCR) Negative (Negative) SARS-CoV-2 RNA (RT-PCR) Negative (Negative) Imaging Data Radiologist's impression: IMPRESSION: No focal infiltrate or effusion. ECG Data EKG #1: Attestation: I personally reviewed and interpreted this ECG as follows: ECG completion date: 03/18/25 ECG completion time: 19:25 Interpretation: Atrial fibrillation at a rate of 87 beats per minute. QRS 138 milliseconds. QT/QTC 387/432. Good R-wave progression across the precordial leads. RBBB given QRS greater [id number]; RSR' M-shaped pattern in V1-V3; wide, slurred S wave in lateral leads (I, aVL, V5-6). T-wave inversion in 3 but flat and upright in contiguous inferior leads. No other T-wave inversions. EKG #2: Attestation: I personally reviewed and interpreted this ECG as follows: ECG completion date: 03/19/25 ECG completion time: 02:31 Interpretation: Atrial fibrillation at a rate of 78 beats per minute. QRS 142. QT/QTC 398/456. Good R-wave progression across the precordial leads. RBBB given QRS greater [id number]; RSR' M-shaped pattern in V1-V3; wide, slurred S wave in lateral leads (I, aVL, V5-6) Discharge Plan Discharge Clinical Impression: Chest pain, Rate controlled atrial fibrillation, Acute kidney injury superimposed on chronic kidney disease Patient Disposition: Still a Patient Condition: Stable
[2025-03-19] VITALS (44 sets, daily range): BP systolic 87–115; BP diastolic 61–77; PULSE 73–99; RESP 16–35; TEMP 36.6–36.8; O2SAT 90–99; BMI 33.0
[2025-03-19 00:56] LABS: Influenza A QL RT-PCR Negative (Negative); Influenza B QL RT-PCR Negative (Negative); RSV RNA, RT-PCR Negative (Negative); SARS-CoV-2 RNA PCR Negative (Negative)
--- NOTE | 2025-03-19 02:23 | ECG_ITS ---
Test Date: 2025-03-19 02:31:37 Measurements Intervals Dunn Rate: 78 P: 0 LA: 0 QRS: 58 QRSD: 142 T: -1 QT: 398 QTc: 456 Interpretive Statements ATRIAL FIBRILLATION RIGHT BUNDLE BRANCH BLOCK BASELINE ARTIFACT- I, II, III, AVR, AVL, AVF, V1 ABNORMAL ECG Compared to ECG 11/05/2024 12:19:28 HEART RATE HAS DECREASED Electronically Signed On 03-19-2025 06:12:53 CDT by John Freed D.O.
[2025-03-19 02:27] LABS: Add Urine Microscopic? YES; Appearance Urine Clear (Clear); Glucose Urine UA Negative (Negative); Leukocyte Esterase Ur Trace LEU/UL (Negative); Nitrate Urine Negative (Negative); Non Pathogenic Casts 0-2; Specific Grav Ur 1.019 (1.001-1.035)
[2025-03-19 02:48] LABS: Magnesium 1.8 mg/dL (1.6-2.3)
[2025-03-19 03:01] LABS: Troponin I < 0.012 ng/mL (0.000-0.034)
[2025-03-19] MEDS: NITROGLYCERIN SL 0.4 MG TABLET SUBLINGUAL (04:25)
--- NOTE | 2025-03-19 06:14 | ADMGEN ---
This patient, Christophe Rocha, was admitted to IMU Room 205-02. Patient/family oriented to hospital policies and general routines including ID bracelet, bed and alarms, visiting hours, pain management, procedures, bathroom and other care routines, personal items, smoking policy, room service/diet, and visiting hours. Information on how to activate the Rapid Response Team has been discussed. Patient/Family are encouraged to report perceived risks to care and to ask questions if they do not understand what they are told or what they should do.
--- NOTE | 2025-03-19 06:24 | EST_ITS ---
Patient Info Name: Christophe Rocha Age: 79 years : 1945 Gender: Male Ht: 67 in Wt: 210 lbs BSA: 2.16 m2 HR: 91 bpm BP: 120 / 78 mmHg Exam Date: 03/19/2025 6:24 AM Patient Status: I Admit Date: 03/19/2025 Exam Type: CA stress kina w NM A regadenoson stress test was performed. Staff Referring Physician: Duke Jernigan Attending Provider: Anna Camarena Exercise Technologist: Rosa Duncan Exercise Physician: John Freed DO Summary 1. 1. Negative lexiscan stress test for ischemic ST changes by ECG criteria. 2. 2. Hypertensive response to lexiscan. 3. 3. Nuclear scan to follow and will be reported separately. Please correlate with it. 4. 4. Patient informed of the above results. Protocol: Lexiscan Stress ECG Details Stage: REST Duration (min): 0 min : 55 sec HR (bpm): 95 SBP (mmHg): 120 DBP (mmHg): 78 Stage: REST Duration (min): 7 min : 52 sec HR (bpm): 87 SBP (mmHg): 120 DBP (mmHg): 78 Stage: STAGE 1 Duration (min): 1 min : 0 sec HR (bpm): 101 SBP (mmHg): 135 DBP (mmHg): 86 Stage: RECOVERY Duration (min): 1 min : 0 sec HR (bpm): 107 SBP (mmHg): 135 DBP (mmHg): 86 Stage: RECOVERY Duration (min): 2 min : 0 sec HR (bpm): 109 SBP (mmHg): 135 DBP (mmHg): 86 Stage: RECOVERY Duration (min): 3 min : 0 sec HR (bpm): 102 SBP (mmHg): 205 DBP (mmHg): 131 Stage: RECOVERY Duration (min): 4 min : 0 sec HR (bpm): 101 SBP (mmHg): 205 DBP (mmHg): 131 Stage: RECOVERY Duration (min): 4 min : 21 sec HR (bpm): 98 SBP (mmHg): 119 DBP (mmHg): 87 Rest HR: 87 bpm Peak HR: 122 bpm Rest Sys BP: 120 mmHg Peak Sys BP: 205 mmHg Max Pred HR: 141 bpm % Max Pred HR: 87 % Target HR: 120 bpm Max RPP: 25,010 bpm*mmHg Termination Reason: Completed protocol Cardiac Symptoms: Shortness of breath Total Time: 1 min : 0 sec Rest Hallman BP: 78 mmHg Peak Hallman BP: 131 mmHg Total Dose: 0.4 mg Resting ECG Atrial fibrillation, RBBB. Stress ECG No ST changes. Arrhythmias None. Report Signatures
[2025-03-19 08:29] LABS: Hematocrit 45.0 % (42.0-52.0); Hemoglobin 14.8 g/dL (14.0-18.0); Immature Granulocyte Percent A 0.2 % (0-0.5); Lymphocytes Absolute Auto 1.19 K/mm3 (0.9-3.2); Mean Corpuscular HGB Conc 32.9 g/dl (32-36); Mean Corpuscular Hemoglobin 29.9 pg (26-34); Mean Corpuscular Volume 90.9 fl (80-100); Nucleated Red Blood Cells Absolute Auto 0.000 K/mm3 (0.0-0.012); Nucleated Red Blood Cells Perc 0.0 % (0.0-0.2); Platelet Count Result 169 k/mm3 (150-375); Red Blood Count 4.95 M/mm3 (4.6-6.20); White Blood Count 8.7 K/mm3 (4.5-10.0)
[2025-03-19 08:54] LABS: Alanine Aminotransferase 17 U/L (6-50); Albumin Level 3.5 g/dL (3.5-5.1); Alkaline Phosphatase 97 U/L (38-126); Anion Gap 10 mmol/L (4-12); Aspartate Amino Transferase 23 U/L (17-59); Bilirubin,Total 1.1 mg/dL (0.2-1.3); Blood Urea Nitrogen 40 mg/dL (9-20); Calcium 9.0 mg/dL (8.4-10.2); Carbon Dioxide 25 mmol/L (22-30); Chloride 102 mmol/L (98-107); Estimated CRCL calculation 43 ml/min; Estimated Glomerular Filt Rate 50; Glucose 95 mg/dL (65-110); Potassium 3.5 mmol/L (3.4-5.0); Sodium 137 mmol/L (137-145); Total Protein 6.5 g/dL (6.3-8.2)
--- NOTE | 2025-03-19 09:16 | PM.IMHP ---
H&P: HPI History of Present Illness Date/Time: 03/19/25 09:16 Chief Complaint: Chest pain Narrative: 79 years old gentleman with history of hypertension, hyperlipidemia, diabetes, obesity, CAD status post CABG, CKD stage 3 present ED with a chief complaint of chest pain. Patient started have chest pain yesterday, locating in left chest, denies fever, chills, cough, nausea vomiting diarrhea. Chronic patient has less chest pain, denies lightheaded and palpitation Patient came to ED for evaluation treatment, Upon arrival to ED, patient was afebrile, blood pressure stable, no O2 desaturation on room air Troponin x2 negative, EKG showed sinus rhythm, right bundle block, no specific ST-T wave changes Elevated BUN creatinine 51/1.38, on the baseline [facility] Social History Social History Smoking status: Former smoker Alcohol intake: never Substance use: never Substance use type: does not use Lack of Transportation: No Lack of Food: Never True Current Housing: I Have Housing Concerned About Future Housing: No Difficulty Paying Gas/Electric Bills: No Difficulty Paying for Meds: No Currently Unemployed: No Education: High School Diploma/GED Difficulty w/ Childcare or Family Care: No Spiritual care concerns: No Meds Home Medications and Allergies Home Medications ?Medication ?Instructions ?Recorded ?Confirmed ?Type allopurinol 300 mg tablet 300 mg PO DAILY 07/05/24 03/19/25 History apixaban 5 mg tablet (Eliquis) 5 mg PO BID 07/05/24 03/19/25 History atorvastatin 10 mg tablet 40 mg PO HS 07/05/24 03/19/25 History metoprolol succinate 50 mg 50 mg PO DAILY 07/05/24 03/19/25 History tablet,extended release 24 hr omeprazole 20 mg capsule,delayed 20 mg PO DAILY 07/05/24 03/19/25 History release propafenone 325 mg 325 mg PO BID 07/05/24 03/19/25 History capsule,extended release 12 hr dicyclomine 20 mg tablet 20 mg PO TID PRN abdominal pain 01/25/25 03/19/25 Rx #30 tabs famotidine 20 mg tablet 20 mg PO DAILY #30 tabs 01/25/25 03/19/25 Rx loperamide 2 mg capsule (Imodium 2 mg PO Q6H PRN loose stool #14 01/25/25 03/19/25 Rx A-D) caps diltiazem HCl 180 mg 180 mg PO DAILY 03/19/25 03/19/25 History capsule,extended release 24 hr erythromycin 5 mg/gram (0.5 %) eye 1 cm ophthalmic (eye) TID 03/19/25 03/19/25 History ointment furosemide 20 mg tablet 20 mg PO DAILY 03/19/25 03/19/25 History lisinopril 10 1 tablet PO DAILY 03/19/25 03/19/25 History mg-hydrochlorothiazide 12.5 mg tablet tadalafil 10 mg tablet 10 mg PO DAILY 03/19/25 03/19/25 History Allergies Allergy/AdvReac Type Severity Reaction Status Date / Time No Known Allergies Allergy Verified 03/18/25 19:26 Vital Signs Vital Signs - 24 hr 03/18/25 19:24 03/18/25 22:16 03/18/25 22:17 Temperature 98.1 F Pulse Rate 121 H 79 76 Respiratory Rate 20 20 21 H Blood Pressure 110/73 79/57 L Pulse Oximetry 99 96 97 Oxygen Delivery Room Air 03/18/25 22:30 03/18/25 22:31 03/18/25 22:32 Temperature Pulse Rate 85 76 85 Respiratory Rate 17 24 H 18 Blood Pressure 86/60 L 86/65 L Pulse Oximetry 97 96 97 Oxygen Delivery 03/18/25 22:45 03/18/25 22:46 03/18/25 22:47 Temperature Pulse Rate 78 85 86 Respiratory Rate 20 27 H 17 Blood Pressure 109/79 109/79 Pulse Oximetry 97 97 97 Oxygen Delivery 03/18/25 23:00 03/18/25 23:01 03/18/25 23:15 Temperature Pulse Rate 77 81 78 Respiratory Rate 31 H 25 H Blood Pressure 88/60 L Pulse Oximetry 97 97 Oxygen Delivery 03/18/25 23:15 03/18/25 23:16 03/18/25 23:16 Temperature Pulse Rate 75 69 Respiratory Rate 28 H 24 H Blood Pressure 99/65 L Pulse Oximetry 96 96 Oxygen Delivery Room Air 03/18/25 23:30 03/18/25 23:31 03/18/25 23:45 Temperature Pulse Rate 82 72 75 Respiratory Rate 21 H 21 H 24 H Blood Pressure 106/69 Pulse Oximetry 98 97 97 Oxygen Delivery 03/18/25 23:46 03/19/25 00:00 03/19/25 00:01 Temperature Pulse Rate 75 77 82 Respiratory Rate 23 H 25 H 22 H Blood Pressure 105/74 91/61 L Pulse Oximetry 97 98 97 Oxygen Delivery 03/19/25 00:15 03/19/25 00:16 03/19/25 00:30 Temperature Pulse Rate 73 85 77 Respiratory Rate 25 H 26 H 28 H Blood Pressure 99/67 L Pulse Oximetry 98 97 97 Oxygen Delivery 03/19/25 00:31 03/19/25 00:45 03/19/25 00:46 Temperature Pulse Rate 74 76 80 Respiratory Rate 27 H 23 H 23 H Blood Pressure 98/66 L 98/67 L Pulse Oximetry 96 98 97 Oxygen Delivery 03/19/25 01:00 03/19/25 01:01 03/19/25 01:02 Temperature Pulse Rate 83 74 80 Respiratory Rate 25 H 26 H 24 H Blood Pressure 101/69 Pulse Oximetry 96 97 97 Oxygen Delivery 03/19/25 01:15 03/19/25 01:16 03/19/25 01:30 Temperature Pulse Rate 75 75 74 Respiratory Rate 26 H 25 H 24 H Blood Pressure 99/66 L Pulse Oximetry 95 95 97 Oxygen Delivery 03/19/25 01:31 03/19/25 01:45 03/19/25 01:46 Temperature Pulse Rate 83 81 78 Respiratory Rate 28 H 25 H 23 H Blood Pressure 93/69 L 101/71 Pulse Oximetry 95 96 96 Oxygen Delivery 03/19/25 02:00 03/19/25 02:01 03/19/25 02:15 Temperature Pulse Rate 83 81 79 Respiratory Rate 18 23 H 20 Blood Pressure 87/70 L Pulse Oximetry 96 97 96 Oxygen Delivery 03/19/25 02:16 03/19/25 02:30 03/19/25 02:45 Temperature Pulse Rate 78 85 79 Respiratory Rate 19 23 H 25 H Blood Pressure 101/71 Pulse Oximetry 95 96 94 Oxygen Delivery 03/19/25 03:00 03/19/25 03:15 03/19/25 03:30 Temperature Pulse Rate 74 85 81 Respiratory Rate 25 H 21 H 33 H Blood Pressure Pulse Oximetry 96 96 97 Oxygen Delivery 03/19/25 03:45 03/19/25 04:00 03/19/25 04:15 Temperature Pulse Rate 79 79 84 Respiratory Rate 18 35 H 28 H Blood Pressure Pulse Oximetry 95 97 96 Oxygen Delivery 03/19/25 04:17 03/19/25 04:30 03/19/25 04:31 Temperature Pulse Rate 86 94 83 Respiratory Rate 26 H 18 27 H Blood Pressure 114/77 90/66 L Pulse Oximetry 96 93 92 Oxygen Delivery 03/19/25 04:45 03/19/25 04:46 03/19/25 05:00 Temperature Pulse Rate 80 87 78 Respiratory Rate 23 H 25 H 24 H Blood Pressure 95/66 L Pulse Oximetry 94 93 90 Oxygen Delivery 03/19/25 05:01 03/19/25 05:20 03/19/25 06:00 Temperature 97.9 F Pulse Rate 78 78 87 Respiratory Rate 29 H 22 H Blood Pressure 101/69 104/75 Pulse Oximetry 93 95 Oxygen Delivery 03/19/25 06:05 03/19/25 07:36 Temperature 98.3 F 97.9 F Pulse Rate 89 84 Respiratory Rate 16 16 Blood Pressure 112/62 115/69 Pulse Oximetry 97 99 Oxygen Delivery Exam Narrative: GENERAL: Pleasant, in no acute distress. Well-nourished. - EYES: EOMI. Anicteric. - HENT: Moist mucous membranes. - LUNGS: Clear to auscultation bilaterally, no wheezing, rhonchi, or rales. - CARDIOVASCULAR: Regular rate and rhythm. No murmur. No JVD. - ABDOMEN: Soft, non-tender and non-distended. No palpable masses. - EXTREMITIES: No edema. Peripheral pulses 2+. Non-tender. - NEUROLOGIC: No focal neurological deficits. CN II-XII grossly intact. - PSYCHIATRIC: Awake, Alert and oriented x 3. Appropriate mood and affect. - SKIN: No rashes or lesions. Warm. - LYMPH: No cervical lymphadenopathy. H&P: Results Labs Labs: Short CBC 03/18/25 03/19/25 Range/Units 19:32 08:21 WBC 11.4 H 8.7 (4.5-10.0) K/mm3 Hgb 15.4 14.8 (14.0-18.0) g/dL Hct 46.8 45.0 (42.0-52.0) % Plt Count 191 169 (150-375) k/mm3 [facility] 03/18/25 03/19/25 19:32 08:21 Sodium 139 137 Potassium 3.6 3.5 Chloride 99 102 Carbon Dioxide 30 25 BUN 51 H D 40 H D Creatinine 1.80 H 1.38 H Glucose 98 95 Calcium 9.1 9.0 Cardiac Enzymes 03/18/25 03/18/25 03/19/25 Range/Units 19:32 22:28 02:31 Troponin I < 0.012 < 0.012 < 0.012 (0.000-0.034) ng/mL Liver Function 03/18/25 03/19/25 Range/Units 19:32 08:21 Total Bilirubin 1.1 1.1 (0.2-1.3) mg/dL AST 25 23 (17-59) U/L ALT 19 17 (6-50) U/L Alkaline Phosphatase 104 97 (38-126) U/L Albumin 3.9 3.5 (3.5-5.1) g/dL Urine 03/19/25 Range/Units 02:15 Urine Color Yellow (Yellow) Urine Appearance Clear (Clear) Urine pH 5.5 (5.0-9.0) Ur Specific [employer] 1.019 (1.001-1.035) Urine Protein Trace (Negative) mg/dL Urine Glucose (UA) Negative (Negative) mg/dL Assessment and Plan Assessment and plan (1) Chest pain: Code(s): R07.9 - Chest pain, unspecified Status: Acute Assessment and Plan: Patient has a history of CAD Has been having chest pain since yesterday. Talking in left chest EKG shows sinus rhythm, right bundle block, no ST elevation Start aspirin 81 mg daily p.o., Lipitor 40 mg daily p.o., patient is also on Eliquis 5 mg b.i.d. p.o. Position telemetry monitoring Pending echocardiogram Consult hod carrier (2) CKD stage 3a, GFR 45-59 ml/min: Code(s): N18.31 - Chronic kidney disease, stage 3a Status: Acute Assessment and Plan: On the baseline Avoid nephrotoxic medication UA unremarkable Follow-up BMP (3) Paroxysmal atrial fibrillation due to heart valve disorder: Code(s): I48.0 - Paroxysmal atrial fibrillation; I38 - Endocarditis, valve unspecified Status: Acute Assessment and Plan: Chronic patient has sinus rhythm Continue Eliquis 5 mg b.i.d. p.o. Cardizem 180 mg daily p.o. Plan Essential hypertension Continue Hyzaar p.o. 1 tablet daily
--- NOTE | 2025-03-19 10:01 | ECHO_ITS ---
Patient Info Name: Christophe Rocha Age: 79 years : 1945 Gender: Male Ht: 67 in Wt: 210 lbs BSA: 2.16 m2 HR: 100 bpm BP: 115 / 69 mmHg Technical Quality: Good Exam Date: 03/19/2025 1:43 PM Patient Status: unknown Admit Date: 03/19/2025 Exam Type: CA echo doppler color flow Complete two-dimensional, color flow and Doppler transthoracic echocardiogram is performed. Staff Referring Physician: Duke Jernigan Speech Coach: Monique Larsen Attending Provider: Anna Camarena Summary 1. Complete two-dimensional, color flow and Doppler transthoracic echocardiogram is performed. 2. Left ventricular systolic function is normal, estimated at 60-65. 3. The left ventricular diastolic function is abnormal. 4. There is trace mitral valve regurgitation. 5. There is trace tricuspid valve regurgitation. 6. No pulmonary hypertension, estimated pulmonary arterial systolic pressure is 30 mmHg. 7. There is mild pulmonic regurgitation. Left Ventricle Left ventricular chamber dimension is normal. Left ventricular systolic function is normal, estimated at 60-65. There is no increased left ventricular wall thickness. Left ventricular septal wall motion is normal. The left ventricular diastolic function is abnormal. Right Ventricle Right ventricular chamber dimension is normal. Right ventricular systolic function is normal. Left Atria Left atrial chamber dimension is mildly enlarged. Right Atria Right atrial chamber dimension is normal. Aortic Valve The aortic valve is trileaflet. There is no aortic valve sclerosis. There is no aortic valve stenosis. There is no aortic valve regurgitation. Pulmonic Valve The pulmonic valve is normal. There is no pulmonic valve stenosis. There is mild pulmonic regurgitation. Mitral Valve The mitral valve has normal leaflets. There is no mitral valve stenosis. There is trace mitral valve regurgitation. Tricuspid Valve The tricuspid valve leaflets are normal. There is no significant tricuspid valve stenosis. There is trace tricuspid valve regurgitation. No pulmonary hypertension, estimated pulmonary arterial systolic pressure is 30 mmHg. Pericardium/Pleural The pericardium appears normal. There is no pericardial effusion. Inferior Vena Cava Normal inferior vena cava with >50% collapse upon inspiration consistent with normal right atrial pressure, 5 mmHg. Aorta The aortic root size at the sinus of Valsalva is normal. The prox ascending aorta size is normal. Left Ventricular Outflow Tract Name Value Normal LVOT 2D LVOT Diameter 2.0 cm LVOT Doppler LVOT Peak Velocity 89 cm/s LVOT Peak Gradient 3 mmHg LVOT Mean Gradient 2 mmHg LVOT VTI 18 cm LVOT Stroke Volume 54 ml LVOT CO 5.4 l/min LVOT CI 2.5 l/min/m2 Pulmonic Valve Name Value Normal RVOT Doppler RVOT Peak Velocity 82 cm/s RVOT Peak Gradient 3 mmHg PV Doppler PV Peak Velocity 87 cm/s PV Peak Gradient 3 mmHg Mitral Valve Name Value Normal MV Diastolic Function MV E Peak Velocity 94 cm/s MV A Peak Velocity 31 cm/s MV E/A 3.0 MV Decel Time (PW) 226 ms MV Annular TDI MV E/e' (Septal) 16.0 MV E/e' (Lateral) 12.0 MV E/e' (Average) 14.0 Tricuspid Valve Name Value Normal TV Regurgitation Doppler TR Peak Velocity 248 cm/s TR Peak Gradient 25 mmHg Estimated PAP/RSVP RA Pressure 5 mmHg <=5 PA Systolic Pressure 30 mmHg <36 RV Systolic Pressure 30 mmHg <36 TV Annular TDI TV Lateral Steph s' Velocity 7.5 cm/s >=9.5 Aortic Valve Name Value Normal AV Doppler AV Peak Velocity 131 cm/s AV Peak Gradient 7 mmHg AV Area (Cont Eq [place]) 2.1 cm2 AV DI ([place]) 0.68 AV Regurgitation 2D LVOT Area 3.1 cm2 Ventricles Name Value Normal LV Dimensions 2D/MM IVS Diastolic Thickness (2D) 0.9 cm 0.6-1.0 LVID Diastole (2D) 4.0 cm 4.2-5.8 LVIW Diastolic Thickness (2D) 1.1 cm 0.6-1.0 LVID Systole (2D) 2.5 cm 2.5-4.0 LVOT Diameter 2.0 cm LV Mass (2D Cubed) 131.74 g 88.00-224.00 LV Mass Index (2D Cubed) 61 g/m2 49-115 Relative Wall Thickness (2D) 0.58 <=0.42 LV Fractional Shortening/Ejection Fraction 2D/MM LV Fractional Shortening (2D) 38 % 25-43 LV EF (2D Teichholz) 69 % LV Diastolic Volume (4C MOD) 89 ml LV EF (4C MOD) 61 % LV Diastolic Volume (2C MOD) 89 ml LV EF (2C MOD) 61 % LV Diastolic Volume (BP MOD) 89 ml 62-150 LV Diastolic Volume Index (BP MOD) 41 ml/m2 34-74 LV Systolic Volume (BP MOD) 36 ml 21-61 LV Systolic Volume Index (BP MOD) 17 ml/m2 11-31 LV EF (BP MOD) 60 % 52-72 LV Diastolic Length (4C) 7.9 cm LV Systolic Length (4C) 6.7 cm LV Stroke Volume (4C MOD) 55 ml Atria Name Value Normal LA Dimensions LA Volume (4C A-L) 79 ml RA Dimensions RA Systolic Major [place] Length (4C) 6.1 cm 2.1-2.7 RA Area (4C) 17.1 cm2 <=18.0 Report Signatures
[2025-03-19] MEDS: dilTIAZem HCL CD 180 MG CAP.24HR PO (10:25)
[2025-03-19] MEDS: FAMOTIDINE 20 MG TABLET PO (10:26)
[2025-03-19] MEDS: PANTOPRAZOLE 40 MG TABLET PO (10:26)
[2025-03-19] MEDS: ERYTHROMYCIN OPHTH OINTMENT 1 GM TUBE 1 APPLIC EACH EYE (12:36)
[2025-03-19] MEDS: FUROSEMIDE 20 MG TABLET PO (12:38)
--- NOTE | 2025-03-19 13:23 | P.CONCA_ITS ---
Assessment and Plan Assessment and plan (1) Rate controlled atrial fibrillation: Code(s): I48.91 - Unspecified atrial fibrillation Status: Acute (2) Chest pain: Code(s): R07.9 - Chest pain, unspecified Status: Acute Plan 79-year-old man presenting yesterday with chest pain that occurred the day before admission. Acute coronary syndrome was ruled out by serial troponin levels and Lexiscan nuclear stress testing earlier today is unremarkable. He does have a history of atrial fib which appears to be chronic he does seem to recall that he is anticoagulated and taking diltiazem for rate control. This should be continued. His diagnosis of coronary disease and previous surgical revascularization that is being charted it is clearly erroneous and should be deleted from the record. From my perspective he is stable to be discharged. Him let me know if you have additional cardiac questions or concerns. I will presume that he has cardiology or physician following him elsewhere since he is on appropriate medication for his AF. I will lot I will not therefore make plans to see him in my office for follow-up Eduar Troy MD [facility] History of Present Illness History of Present Illness Consult date/time: 03/19/25 13:23 Reason For Visit: chest pain, HEART score 4 Narrative: This is a 79-year-old man I am seeing at the request of the hospitalist because of chest pain. He is unknown to me prior to this encounter and the history is very difficult as his command of the [place] language is limited. He came to the hospital according to the chart yesterday because of chest pain. The patient states that he had symptoms of some central chest pressure at home that was self-limited about 2 days before coming in the hospital. He has not had any symptoms since he has been here. The patient feels well at this time and has no complaints. He had a Lexiscan nuclear stress test performed this morning by the hospitalist the results are ready on the chart and they are completely normal. He does have a history of atrial fibrillation and he seems to recall this. According to the records he takes apixaban and diltiazem presumably being managed with rate control and anticoagulation strategy. Interestingly his chart says that he has a has a history of coronary artery disease with previous bypass operation. The patient has no recollection of this, his physical exam shows no evidence of a sternotomy scar and his chest x-ray shows no evidence of sternotomy wires or clips. He is resting comfortably at this time and seems to have no complaints or concerns. His atrial fib heart rate is well controlled and as stated above he is systemically anticoagulated with apixaban. Review of Systems 2 Constitutional: Constitutional: Reports no additional constitutional complaints Eyes: Eyes: Reports no additional eye complaints ENT: Reports system reviewed and no additional complaints, except as documented Cardiovascular: Cardiovascular: Reports as per HPI Respiratory: Respiratory: Reports no additional respiratory complaints Gastrointestinal: Gastrointestinal: Reports no additional gastrointestinal complaints Musculoskeletal: Musculoskeletal: Reports no additional musculoskeletal complaints Integumentary/Breasts: Skin/Breast: Reports system reviewed and no additional complaints, except as docu Neurologic: Reports system reviewed and no additional complaints, except as documented Endocrine: Endocrine: Reports no additional endocrine complaints Hematologic/Lymphatic: Hematologic/Lymphatic: Reports no additional hematologic/lymphatic complaints Allergic/Immunologic: Allergic/Immunologic: Reports no additional allergic/immunologic complaints [facility] Social History Social History Smoking status: Former smoker Alcohol intake: never Substance use: never Substance use type: does not use Lack of Transportation: No Lack of Food: Never True Current Housing: I Have Housing Concerned About Future Housing: No Difficulty Paying Gas/Electric Bills: No Difficulty Paying for Meds: No Currently Unemployed: No Education: High School Diploma/GED Difficulty w/ Childcare or Family Care: No Spiritual care concerns: No Meds Home Medications and Allergies Home Medications ?Medication ?Instructions ?Recorded ?Confirmed ?Type allopurinol 300 mg tablet 300 mg PO DAILY 07/05/24 03/19/25 History apixaban 5 mg tablet (Eliquis) 5 mg PO BID 07/05/24 03/19/25 History atorvastatin 10 mg tablet 40 mg PO HS 07/05/24 03/19/25 History metoprolol succinate 50 mg 50 mg PO DAILY 07/05/24 03/19/25 History tablet,extended release 24 hr omeprazole 20 mg capsule,delayed 20 mg PO DAILY 07/05/24 03/19/25 History release propafenone 325 mg 325 mg PO BID 07/05/24 03/19/25 History capsule,extended release 12 hr dicyclomine 20 mg tablet 20 mg PO TID PRN abdominal pain 01/25/25 03/19/25 Rx #30 tabs famotidine 20 mg tablet 20 mg PO DAILY #30 tabs 01/25/25 03/19/25 Rx loperamide 2 mg capsule (Imodium 2 mg PO Q6H PRN loose stool #14 01/25/25 03/19/25 Rx A-D) caps diltiazem HCl 180 mg 180 mg PO DAILY 03/19/25 03/19/25 History capsule,extended release 24 hr erythromycin 5 mg/gram (0.5 %) eye 1 cm ophthalmic (eye) TID 03/19/25 03/19/25 History ointment furosemide 20 mg tablet 20 mg PO DAILY 03/19/25 03/19/25 History lisinopril 10 1 tablet PO DAILY 03/19/25 03/19/25 History mg-hydrochlorothiazide 12.5 mg tablet tadalafil 10 mg tablet 10 mg PO DAILY 03/19/25 03/19/25 History Allergies Allergy/AdvReac Type Severity Reaction Status Date / Time No Known Allergies Allergy Verified 03/18/25 19:26 Vital Signs Vital Signs - 24 hr 03/18/25 19:24 03/18/25 22:16 03/18/25 22:17 Temperature 36.7 C Pulse Rate 121 H 79 76 Respiratory Rate 20 20 21 H Blood Pressure 110/73 79/57 L Pulse Oximetry 99 96 97 Oxygen Delivery Room Air 03/18/25 22:30 03/18/25 22:31 03/18/25 22:32 Temperature Pulse Rate 85 76 85 Respiratory Rate 17 24 H 18 Blood Pressure 86/60 L 86/65 L Pulse Oximetry 97 96 97 Oxygen Delivery 03/18/25 22:45 03/18/25 22:46 03/18/25 22:47 Temperature Pulse Rate 78 85 86 Respiratory Rate 20 27 H 17 Blood Pressure 109/79 109/79 Pulse Oximetry 97 97 97 Oxygen Delivery 03/18/25 23:00 03/18/25 23:01 03/18/25 23:15 Temperature Pulse Rate 77 81 78 Respiratory Rate 31 H 25 H Blood Pressure 88/60 L Pulse Oximetry 97 97 Oxygen Delivery 03/18/25 23:15 03/18/25 23:16 03/18/25 23:16 Temperature Pulse Rate 75 69 Respiratory Rate 28 H 24 H Blood Pressure 99/65 L Pulse Oximetry 96 96 Oxygen Delivery Room Air 03/18/25 23:30 03/18/25 23:31 03/18/25 23:45 Temperature Pulse Rate 82 72 75 Respiratory Rate 21 H 21 H 24 H Blood Pressure 106/69 Pulse Oximetry 98 97 97 Oxygen Delivery 03/18/25 23:46 03/19/25 00:00 03/19/25 00:01 Temperature Pulse Rate 75 77 82 Respiratory Rate 23 H 25 H 22 H Blood Pressure 105/74 91/61 L Pulse Oximetry 97 98 97 Oxygen Delivery 03/19/25 00:15 03/19/25 00:16 03/19/25 00:30 Temperature Pulse Rate 73 85 77 Respiratory Rate 25 H 26 H 28 H Blood Pressure 99/67 L Pulse Oximetry 98 97 97 Oxygen Delivery 03/19/25 00:31 03/19/25 00:45 03/19/25 00:46 Temperature Pulse Rate 74 76 80 Respiratory Rate 27 H 23 H 23 H Blood Pressure 98/66 L 98/67 L Pulse Oximetry 96 98 97 Oxygen Delivery 03/19/25 01:00 03/19/25 01:01 03/19/25 01:02 Temperature Pulse Rate 83 74 80 Respiratory Rate 25 H 26 H 24 H Blood Pressure 101/69 Pulse Oximetry 96 97 97 Oxygen Delivery 03/19/25 01:15 03/19/25 01:16 03/19/25 01:30 Temperature Pulse Rate 75 75 74 Respiratory Rate 26 H 25 H 24 H Blood Pressure 99/66 L Pulse Oximetry 95 95 97 Oxygen Delivery 03/19/25 01:31 03/19/25 01:45 03/19/25 01:46 Temperature Pulse Rate 83 81 78 Respiratory Rate 28 H 25 H 23 H Blood Pressure 93/69 L 101/71 Pulse Oximetry 95 96 96 Oxygen Delivery 03/19/25 02:00 03/19/25 02:01 03/19/25 02:15 Temperature Pulse Rate 83 81 79 Respiratory Rate 18 23 H 20 Blood Pressure 87/70 L Pulse Oximetry 96 97 96 Oxygen Delivery 03/19/25 02:16 03/19/25 02:30 03/19/25 02:45 Temperature Pulse Rate 78 85 79 Respiratory Rate 19 23 H 25 H Blood Pressure 101/71 Pulse Oximetry 95 96 94 Oxygen Delivery 03/19/25 03:00 03/19/25 03:15 03/19/25 03:30 Temperature Pulse Rate 74 85 81 Respiratory Rate 25 H 21 H 33 H Blood Pressure Pulse Oximetry 96 96 97 Oxygen Delivery 03/19/25 03:45 03/19/25 04:00 03/19/25 04:15 Temperature Pulse Rate 79 79 84 Respiratory Rate 18 35 H 28 H Blood Pressure Pulse Oximetry 95 97 96 Oxygen Delivery 03/19/25 04:17 03/19/25 04:30 03/19/25 04:31 Temperature Pulse Rate 86 94 83 Respiratory Rate 26 H 18 27 H Blood Pressure 114/77 90/66 L Pulse Oximetry 96 93 92 Oxygen Delivery 03/19/25 04:45 03/19/25 04:46 03/19/25 05:00 Temperature Pulse Rate 80 87 78 Respiratory Rate 23 H 25 H 24 H Blood Pressure 95/66 L Pulse Oximetry 94 93 90 Oxygen Delivery 03/19/25 05:01 03/19/25 05:20 03/19/25 06:00 Temperature 36.6 C Pulse Rate 78 78 87 Respiratory Rate 29 H 22 H Blood Pressure 101/69 104/75 Pulse Oximetry 93 95 Oxygen Delivery 03/19/25 06:05 03/19/25 07:36 03/19/25 08:00 Temperature 36.8 C 36.6 C Pulse Rate 89 84 84 Respiratory Rate 16 16 Blood Pressure 112/62 115/69 Pulse Oximetry 97 99 Oxygen Delivery 03/19/25 10:00 03/19/25 12:00 Temperature Pulse Rate 84 99 Respiratory Rate Blood Pressure Pulse Oximetry Oxygen Delivery Exam 2 Const: Other: Pleasant obese man appearing about his stated age who is comfortable at this time HENMT: Face/Nose/Sinus: Normal nares present Eyes: Sclera: sclerae normal Neck: Neck: supple and no JVD Resp: Effort & Inspection: normal respiratory effort Auscultation: clear to auscultation bilaterally Cardio: Rate: regular rate Rhythm: regular rhythm GI: GI Palp: Yes Soft to palpation Auscultation: normal bowel sounds Skin: General skin exam: normal color Neuro: Other: Alert and responsive Extrem: General: normal to inspection Results Labs and Meds 03/19/25 08:21 03/19/25 08:21 Lab results: Cardiac Enzymes 03/18/25 03/18/25 03/19/25 Range/Units 19:32 22:28 02:31 AST 25 (17-59) U/L Troponin I < 0.012 < 0.012 < 0.012 (0.000-0.034) ng/mL 03/19/25 Range/Units 08:21 AST 23 (17-59) U/L Troponin I (0.000-0.034) ng/mL Coagulation 03/18/25 Range/Units 19:32 PT 18.1 H (11.1-14.7) Seconds APTT 21.8 L (22.3-36.8) Seconds CBC 03/18/25 03/19/25 Range/Units 19:32 08:21 WBC 11.4 H 8.7 (4.5-10.0) K/mm3 RBC 5.14 4.95 (4.6-6.20) M/mm3 Hgb 15.4 14.8 (14.0-18.0) g/dL Hct 46.8 45.0 (42.0-52.0) % Plt Count 191 169 (150-375) k/mm3 Lymph # (Auto) 2.08 1.19 (0.9-3.2) K/mm3 [place] # (Auto) 1.1 H 0.7 H (0.1-0.6) K/mm3 Eos # (Auto) 0.4 H 0.4 H (0-0.3) K/mm3 Baso # (Auto) 0.1 0.1 (0.0-0.1) K/mm3 Comprehensive Metabolic Panel 03/18/25 03/19/25 Range/Units 19:32 08:21 Sodium 139 137 (137-145) mmol/L Potassium 3.6 3.5 (3.4-5.0) mmol/L Chloride 99 102 (98-107) mmol/L Carbon Dioxide 30 25 (22-30) mmol/L BUN 51 H D 40 H D (9-20) mg/dL Creatinine 1.80 H 1.38 H (0.7-1.3) mg/dL Glucose 98 95 (65-110) mg/dL Calcium 9.1 9.0 (8.4-10.2) mg/dL AST 25 23 (17-59) U/L ALT 19 17 (6-50) U/L Alkaline Phosphatase 104 97 (38-126) U/L Total Protein 7.2 6.5 (6.3-8.2) g/dL Albumin 3.9 3.5 (3.5-5.1) g/dL Intake and Output 03/18/25 03/19/25 03/19/25 23:59 07:59 15:59 Intake Total 1000 Output Total 100 Balance 1000 -100 Intake: IV 1000 Sodium Chloride 0.9% IV 1,000 1000 ml @ 999 mls/hr IV CONT .Q1H1M STA Rx#:[id number] Output: Urine 100 Other: Number of Bowel Movements Today 1 Patient Weight 03/19/25 23:59 Weight 95.5 kg
--- NOTE | 2025-03-19 14:58 | PM.DS ---
DS: Admitting Diagnosis Discharge Date 03/19/25 Admitting Diagnosis Chest pain DS: Discharge Diagnosis Discharge Diagnosis (1) Chest pain: Code(s): R07.9 - Chest pain, unspecified Status: Acute Assessment and Plan: Patient has a history of CAD Has been having chest pain since yesterday. Talking in left chest EKG shows sinus rhythm, right bundle block, no ST elevation Start aspirin 81 mg daily p.o., Lipitor 40 mg daily p.o., patient is also on Eliquis 5 mg b.i.d. p.o. 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 p.o. Cardizem 180 mg daily p.o. Plan Essential hypertension Continue Hyzaar p.o. 1 tablet daily DS: Summary Hospital Course Hospital Course: 79 years old gentleman with history of hypertension, hyperlipidemia, diabetes, obesity, CAD status post CABG, CKD stage 3 present ED with a chief complaint of chest pain. Patient started have chest pain yesterday, locating in left chest, denies fever, chills, cough, nausea vomiting diarrhea. Chronic patient has less chest pain, denies lightheaded and palpitation Patient came to ED for evaluation treatment, Upon arrival to ED, patient was afebrile, blood pressure stable, no O2 desaturation on room air Troponin x2 negative, EKG showed sinus rhythm, right bundle block, no specific ST-T wave changes Elevated BUN creatinine 51/1.38, on the baseline The following med issues have been addressed during hospitalization (1) Chest pain: Code(s): R07.9 - Chest pain, unspecified Status: Acute Assessment and Plan: Patient has a history of CAD Has been having chest pain since yesterday. Talking in left chest EKG shows sinus rhythm, right bundle block, no ST elevation Start aspirin 81 mg daily p.o., Lipitor 40 mg daily p.o., patient is also on Eliquis 5 mg b.i.d. p.o. 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 p.o. Cardizem 180 mg daily p.o. Essential hypertension Continue Hyzaar p.o. 1 tablet daily Acute coronary syndrome was ruled out by serial troponin levels and Lexiscan nuclear stress testing earlier today is unremarkable. Patient will be discharged home today, patient will see primary care doctor and kersey department supervisor at scheduled appointment Time Spent with Patient Time attestation: Total time spent providing and/or coordinating discharge services: Exam Narrative: GENERAL: Pleasant, in no acute distress. Well-nourished. - EYES: EOMI. Anicteric. - HENT: Moist mucous membranes. - LUNGS: Clear to auscultation bilaterally, no wheezing, rhonchi, or rales. - CARDIOVASCULAR: Regular rate and rhythm. No murmur. No JVD. - ABDOMEN: Soft, non-tender and non-distended. No palpable masses. - EXTREMITIES: No edema. Peripheral pulses 2+. Non-tender. - NEUROLOGIC: No focal neurological deficits. CN II-XII grossly intact. - PSYCHIATRIC: Awake, Alert and oriented x 3. Appropriate mood and affect. - SKIN: No rashes or lesions. Warm. - LYMPH: No cervical lymphadenopathy. DS: Data Data Completed and Pending Labs on day of discharge: Labs from last 24 hours 03/19/25 03/19/25 03/19/25 08:21 02:31 02:15 WBC 8.7 RBC 4.95 Hgb 14.8 Hct 45.0 MCV 90.9 MCH 29.9 MCHC 32.9 RDW 12.4 Plt Count 169 MPV 10.4 Immature Gran % (Auto) 0.2 Neut % (Auto) 72.9 Lymph % (Auto) 13.7 L [place] % (Auto) 7.8 Eos % (Auto) 4.6 H Baso % (Auto) 0.8 Lymph # (Auto) 1.19 [place] # (Auto) 0.7 H Eos # (Auto) 0.4 H Baso # (Auto) 0.1 Abs Immat Gran (auto) 0.02 Absolute Neuts (auto) 6.3 Absolute Nucleated RBC 0.000 Nucleated RBC % 0.0 PT INR APTT D-Dimer Sodium 137 Potassium 3.5 Chloride 102 Carbon Dioxide 25 Anion Gap 10 BUN 40 H D Creatinine 1.38 H Estim Creat Clear Calc 43 Estimated GFR 50 L Glucose 95 Calcium 9.0 Magnesium 1.8 Total Bilirubin 1.1 AST 23 ALT 17 Alkaline Phosphatase 97 Troponin I < 0.012 Total Protein 6.5 Albumin 3.5 Lipase Urine Color Yellow Urine Appearance Clear Urine pH 5.5 Ur Specific [place] 1.019 Urine Protein Trace Urine Glucose (UA) Negative Urine Ketones 1+ H Ur Blood (Man) Negative Urine Nitrate Negative Urine Bilirubin Negative Urine Urobilinogen 1.0 Leukocyte Esterase Rfl Trace H Urine RBC 0-2 Urine WBC 0-5 Ur Squamous Epith Cells None seen Urine Bacteria None seen Urine Casts 0-2 Influenza A (RT-PCR) Influenza B (RT-PCR) RSV (RT-PCR) SARS-CoV-2 RNA (RT-PCR) 03/19/25 03/18/25 03/18/25 00:11 22:28 19:32 WBC RBC Hgb Hct MCV MCH MCHC RDW Plt Count MPV Immature Gran % (Auto) Neut % (Auto) Lymph % (Auto) [place] % (Auto) Eos % (Auto) Baso % (Auto) Lymph # (Auto) [place] # (Auto) Eos # (Auto) Baso # (Auto) Abs Immat Gran (auto) Absolute Neuts (auto) Absolute Nucleated RBC Nucleated RBC % PT INR APTT D-Dimer 0.38 Sodium Potassium Chloride Carbon Dioxide Anion Gap BUN Creatinine Estim Creat Clear Calc Estimated GFR Glucose Calcium Magnesium Cancelled Total Bilirubin 1.1 AST 25 ALT 19 Alkaline Phosphatase 104 Troponin I < 0.012 < 0.012 Total Protein 7.2 Albumin 3.9 Lipase 57 Urine Color Urine Appearance Urine pH Ur Specific [place] Urine Protein Urine Glucose (UA) Urine Ketones Ur Blood (Man) Urine Nitrate Urine Bilirubin Urine Urobilinogen Leukocyte Esterase Rfl Urine RBC Urine WBC Ur Squamous Epith Cells Urine Bacteria Urine Casts Influenza A (RT-PCR) Negative Influenza B (RT-PCR) Negative RSV (RT-PCR) Negative SARS-CoV-2 RNA (RT-PCR) Negative 03/18/25 19:32 WBC 11.4 H RBC 5.14 Hgb 15.4 Hct 46.8 MCV 91.1 MCH 30.0 MCHC 32.9 RDW 12.4 Plt Count 191 MPV 10.2 Immature Gran % (Auto) 0.3 Neut % (Auto) 67.7 Lymph % (Auto) 18.2 L [place] % (Auto) 9.5 H Eos % (Auto) 3.7 Baso % (Auto) 0.6 Lymph # (Auto) 2.08 [place] # (Auto) 1.1 H Eos # (Auto) 0.4 H Baso # (Auto) 0.1 Abs Immat Gran (auto) 0.03 Absolute Neuts (auto) 7.7 H Absolute Nucleated RBC 0.000 Nucleated RBC % 0.0 PT 18.1 H INR 1.5 APTT 21.8 L D-Dimer Sodium 139 Potassium 3.6 Chloride 99 Carbon Dioxide 30 Anion Gap 10 BUN 51 H D Creatinine 1.80 H Estim Creat Clear Calc 34 Estimated GFR 37 L Glucose 98 Calcium 9.1 Magnesium Cancelled Total Bilirubin AST ALT Alkaline Phosphatase Troponin I Total Protein Albumin Lipase Urine Color Urine Appearance Urine pH Ur Specific [place] Urine Protein Urine Glucose (UA) Urine Ketones Ur Blood (Man) Urine Nitrate Urine Bilirubin Urine Urobilinogen Leukocyte Esterase Rfl Urine RBC Urine WBC Ur Squamous Epith Cells Urine Bacteria Urine Casts Influenza A (RT-PCR) Influenza B (RT-PCR) RSV (RT-PCR) SARS-CoV-2 RNA (RT-PCR) Discharge Plan Discharge Attending physician on discharge: Dexter Ga Consulting providers: Eduar Troy Discharging Clinician: Dexter Ga Anticipated Discharge Date/Time: 03/19/25 15:01 Patient Disposition: Home Activity: as tolerated Diet: heart healthy Patient Instructions: Regadenoson (By injection), Chest Pain (GEN), Heart Healthy Diet (DC), Nuclear Stress Test (GEN) Patient Language: [place] Stand Alone Forms: General Discharge Information Follow-up/Referrals: Trae,CHINEDU Pearson [Primary Care Provider] - (See PCP in 1 week) Eduar Troy MD [Physician] - (See kersey department supervisor at scheduled appointment) Discharge Medications: Continued atorvastatin 10 mg tablet 40 mg PO HS metoprolol succinate 50 mg tablet extended release 24 hr 50 mg PO DAILY omeprazole 20 mg capsule,delayed release(DR/EC) 20 mg PO DAILY allopurinol 300 mg tablet 300 mg PO DAILY propafenone 325 mg capsule,extended release 12 hr 325 mg PO BID Eliquis 5 mg tablet 5 mg PO BID famotidine 20 mg tablet 20 mg PO DAILY Qty: 30 0RF dicyclomine 20 mg tablet 20 mg PO TID PRN (Reason: abdominal pain) Qty: 30 0RF loperamide [Imodium A-D] 2 mg capsule 2 mg PO Q6H PRN (Reason: loose stool) Qty: 14 0RF diltiazem HCl 180 mg capsule,extended release 24hr 180 mg PO DAILY erythromycin 5 mg/gram (0.5 %) ointment 1 cm ophthalmic (eye) TID furosemide 20 mg tablet 20 mg PO DAILY lisinopril-hydrochlorothiazide 10-12.5 mg tablet 1 tablet PO DAILY tadalafil 10 mg tablet 10 mg PO DAILY Date of admission: 03/19/25 04:13 Primary Care Provider: Trae,Chance Hayes Admitting Provider: Anna Camarena Attending physician on admission: Anna Camarena Condition: Stable
== END 2025-03-19 16:57 | disposition home or self-care (01) ==
LOC: ANHED 23:14 → ANHIMU 03-19 05:22
PROVIDERS: Admitting Provider General Practice; Emergency Provider Student in an Organized Health Care Education/Training Program; PCP Physician Assistant; Visit Provider Hospitalist
DX: R07.9 Chest pain, unspecified (principal); I48.0 Paroxysmal atrial fibrillation; I38 Endocarditis, valve unspecified; N17.9 Acute kidney failure, unspecified; I12.9 Hypertensive chronic kidney disease with stage 1 through stage 4 chronic kidney disease, or unspecified chronic kidney disease; E11.22 Type 2 diabetes mellitus with diabetic chronic kidney disease; N18.31 Chronic kidney disease, stage 3a; I45.10 Unspecified right bundle-branch block; E78.5 Hyperlipidemia, unspecified; Z79.01 Long term (current) use of anticoagulants; Z87.891 Personal history of nicotine dependence; Z86.73 Personal history of transient ischemic attack (TIA), and cerebral infarction without residual deficits; Z20.822 Contact with and (suspected) exposure to COVID-19; E66.9 Obesity, unspecified; Z68.33 Body mass index [BMI] 33.0-33.9, adult
CPT/HCPCS: 36415; 71046; 78452; 80053; 81001; 83690; 83735; 84484; 85025; 85380; 85610; 85730; 87637; 93005; 93017; 93306; 96374; 96375; 99285; A9270; A9502; G0378; J2785; J7030

== ENCOUNTER 2025-05-18 11:42 | Outpatient (CLI) | payer MEDICARE, MEDICAID, SELFPAY ==
--- OUTSIDE RECORDS SUMMARY | 2025-05-18 13:00 | XMS_ITS | Clinical Summary ---
Author Organization [facility] Facility Address [address] [address] Care Team Providers Care Steamboat Captain Name Role Phone Chance Larkin Primary Care Provider Social History Tobacco Use Types Packs/Day Years [...] Insurance U[employer] Medicare Medicaid [place] Care Teams Steamboat Captain Relationship Specialty Start Date End Date Chance Larkin PA [address] [place] [address] PCP - General Physician Nature Photographer 12/31/24
--- OUTSIDE RECORDS SUMMARY | 2025-05-18 13:00 | XMS_ITS | Clinical Summary ---
Author Organization [facility] Address [address] [place] [address] Care Team Providers Care Hog Buyer Name Role Phone Dorys Driscoll MD Primary Care Provider [phone] Source Comments [facility],non-owned Affiliates and Associated Physician Practices is amultiple site organization consisting of ambulatory clinics and hospital sitesin [place], [place], [place] and [place]. This disclosure is being madepursuant to the Care Everywhere program and may not contain all information available regarding this patient. 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 Gender Identity Not on file Sexual Orientation Not on file Plan of Treatment Health Maintenance Due Date Last Done Comments DTAP/TDAP/TD VACCINES (1 - Tdap) 1964 PNEUMOCOCCAL VACCINE 50+ (1 of 1 - PCV) 1995 ZOSTER VACCINE (1 of 2) 1995 Respiratory Syncytial Virus (RSV) Vaccine Pt: or over 60 yrs (1 - 1-dose 75+ series) 2020 DEPRESSION SCREENING 08/12/2024 MEDICARE AWV CALENDAR YEAR 2024 COVID-19 VACCINE ( - 2023-2 5 season) 2025 INFLUENZA VACCINE (#1) 2025 4, 06/01/2021 HEPATITIS [...] complete this topic Insurance MEDICARE MEDICAID - [facility] MANAGED MEDICARE [facility] MEDICAID - [place] Care Teams Hog Buyer Relationship Specialty Start Date End Date Dorys Driscoll MD [facility] [place] [id number] [facility] - General 02/22/12
[2025-05-18 13:37] LABS: INR 1.2; Partial Thromboplastin Time 30.9 Seconds (22.3-36.8); Prothrombin Time 15.3 Seconds (11.1-14.7)
[2025-05-18 14:03] LABS: Anion Gap 8 mmol/L (4-12); Blood Urea Nitrogen 25 mg/dL (9-20); Calcium 8.9 mg/dL (8.4-10.2); Carbon Dioxide 28 mmol/L (22-30); Chloride 104 mmol/L (98-107); Estimated Glomerular Filt Rate > 60; Glucose 122 mg/dL (65-110); Potassium 3.8 mmol/L (3.4-5.0); Sodium 140 mmol/L (137-145)
== END 2025-05-18 11:43 | disposition home or self-care (01) ==
PROVIDERS: Anesthesiology; PCP Physician Assistant; Visit Provider Urology
DX: N18.31 Chronic kidney disease, stage 3a (principal); Z01.818 Encounter for other preprocedural examination
CPT/HCPCS: 36415; 80048; 85610; 85730

== ENCOUNTER 2025-05-27 00:42 | Day surgery (SDC) | payer MEDICARE, MEDICAID, SELFPAY ==
--- NOTE | 2025-03-22 06:31 | PM.HPGS ---
History of Present Illness History of Present Illness Consent: Risks, benefits, and alternatives have been discussed and questions answered. Patient agrees to proceed with procedure. Chief complaint: elevated psa Narrative: Christophe Rocha is a 79 year old male who has been managed by our nurse practitioner for voiding symptoms. He was recently found to have a PSA elevation to 6.9. Prostate MRI shows a 2.8 cm PI-RADS 5 lesion in the right peripheral zone at the prostate base extending into the mid prostate. There does appear to be possible extracapsular extension. After discussion of options he is agreeable to an MRI fusion biopsy of the prostate and is aware the risk including hematuria, rectal bleeding and failure to diagnose cancer that may be present. Review of Systems Cardiovascular: Cardiovascular: Denies chest pain, Denies lightheadedness, Denies palpitations and Denies dyspnea Respiratory: Respiratory: Denies dyspnea Gastrointestinal: Gastrointestinal: Denies diarrhea, Denies nausea and Denies vomiting Genitourinary: Genitourinary: Denies hematuria and Denies dysuria Endocrine: Endocrine: Denies palpitations [facility] Past Medical History Medical History CKD (chronic kidney disease) Chronic anticoagulation Atrial fibrillation Family History Family History Mother Acute myocardial infarction <65yo Social History Social History Smoking status: Former smoker Alcohol intake: never Substance use: never Substance use type: does not use Lack of Transportation: No Lack of Food: Never True Current Housing: I Have Housing Concerned About Future Housing: No Difficulty Paying Gas/Electric Bills: No Difficulty Paying for Meds: No Currently Unemployed: No Education: High School Diploma/GED Difficulty w/ Childcare or Family Care: No Spiritual care concerns: No Meds Home Medications and Allergies Home Medications ?Medication ?Instructions ?Recorded ?Confirmed ?Type allopurinol 300 mg tablet 300 mg PO DAILY 07/05/24 03/19/25 History apixaban 5 mg tablet (Eliquis) 5 mg PO BID 07/05/24 03/19/25 History atorvastatin 10 mg tablet 40 mg PO HS 07/05/24 03/19/25 History metoprolol succinate 50 mg 50 mg PO DAILY 07/05/24 03/19/25 History tablet,extended release 24 hr omeprazole 20 mg capsule,delayed 20 mg PO DAILY 07/05/24 03/19/25 History release propafenone 325 mg 325 mg PO BID 07/05/24 03/19/25 History capsule,extended release 12 hr dicyclomine 20 mg tablet 20 mg PO TID PRN abdominal pain 01/25/25 03/19/25 Rx #30 tabs famotidine 20 mg tablet 20 mg PO DAILY #30 tabs 01/25/25 03/19/25 Rx loperamide 2 mg capsule (Imodium 2 mg PO Q6H PRN loose stool #14 01/25/25 03/19/25 Rx A-D) caps diltiazem HCl 180 mg 180 mg PO DAILY 03/19/25 03/19/25 History capsule,extended release 24 hr erythromycin 5 mg/gram (0.5 %) eye 1 cm ophthalmic (eye) TID 03/19/25 03/19/25 History ointment furosemide 20 mg tablet 20 mg PO DAILY 03/19/25 03/19/25 History lisinopril 10 1 tablet PO DAILY 03/19/25 03/19/25 History mg-hydrochlorothiazide 12.5 mg tablet tadalafil 10 mg tablet 10 mg PO DAILY 03/19/25 03/19/25 History Allergies Allergy/AdvReac Type Severity Reaction Status Date / Time No Known Allergies Allergy Verified 03/18/25 19:26 Exam Const: General: no acute distress Resp: Effort & Inspection: normal respiratory effort GI: Inspection: non-distended GI Palp: No abdominal tenderness and No Guarding due to palpation present (GI) Auscultation: normal bowel sounds Assessment and Plan Assessment and plan (1) Elevated PSA: Code(s): R97.20 - Elevated prostate specific antigen [PSA] Status: Acute Assessment and Plan: MRI fusion biopsy prostate
--- OUTSIDE RECORDS SUMMARY | 2025-04-01 03:34 | XMS_ITS | Clinical Summary ---
Author Organization [facility] Address [address] [place] [address] Care Team Providers Care Pain Medicine Physician Name Role Phone Dorys Driscoll MD Primary Care Provider [phone] Source Comments [facility],non-owned Affiliates and Associated Physician Practices is amultiple site organization consisting of ambulatory clinics and hospital sitesin [place], [place], [place] and [place]. This disclosure is being madepursuant to the Care Everywhere program and may not contain all information available regarding this patient. 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
[2025-05-18 12:10] VITALS: BP 142/80; PULSE 95; RESP 16; TEMP 36.7; O2SAT 95; BMI 31.8
--- NOTE | 2025-05-18 12:44 | PC.NURSE ---
[facility] has started construction of its new state of the art ER which will open Spring 2026. With this, we anticipate parking may be a challenge for some our surgical patients and families. Parking spaces are limited but are available for all Surgical, obstetrics, and ER patients sharing this lot. If you arrive and find you are having a hard time finding a parking space, please note that we understand the challenges, please drive around the hospital and park near Hospital Entrance 1. When you enter this entrance, you can ask a volunteer to direct or take you back to the surgical waiting area to check in. We appreciate everyone?s understanding of these expected challenges while we build for your future. Report to the Outpatient Waiting Room, entrance under the green pavilion located off [address], at time _0830am on date _05/27/25 . Planned Procedure Time: ____10:30am____.? Time changes happen often and if your time is changed the preop area will call you the afternoon before. - You and your visitor will be asked to self-screen and do not enter if you have any COVID symptoms. Please call surgeon if you need to reschedule. - A mask is optional within the hospital at this time. Patients may have clear liquids (water, carbonated beverages, clear teas, apple juice) until 3 hours prior to surgery with a maximum of 20 ounces. - No food from midnight until time of surgery and no smoking, or chewing tobacco (or any form of nicotine). No chewing gum, candy or mints. (07:30am) Take only the following medications with a SIP of water on the morning of surgery: ___Diltiazem, Metoprolol DO NOT STOP ANY OF YOUR OTHER PRESCRIPTION MEDICATIONS PRIOR TO SURGERY EXCEPT THE FOLLOWING Hold all vitamins and supplements for 3 days per anesthesiologist. Date of last dose on 05/23/25. Medications to discontinue per physician HOLD ELIQUIS for [address] Blanchard Date to take last dose____05/23/25 Please no make-up, nail syriac, hairspray, perfume, deodorant, or body powder the day of surgery.? No jewelry (including any body piercings) or valuables the day of surgery, leave them at home.? Please take a shower or bath the night before, or the morning of, surgery with an antibacterial soap.? Wear comfortable, loose fitting clothing.? Fleets Enema the am of procedure - Jewelry must be removed prior to entering the operating room.? Rings and piercings that are not removed may be cut off. - The hospital will not accept responsibility for valuables.? - Please leave all valuables, including medications, at home the day of surgery. If you are going home after surgery, a licensed patient transportation driver must drive you home.? - NO public transportation without another adult if you receive anesthesia. - We recommend that an adult stay with you for 24 hours following discharge. - We also recommend that you do not drive, make important decision, drink alcoholic beverages, or take any drugs that were not prescribed by your health care provider for at least 24 hours after your discharge time. Follow any additional instructions given to you from your surgeon. Telephone instructions given to __Yuli ( daughter) & Patient and asked if any additional questions and then verbalized understanding. Patient advised to call surgeon office or pre surgery nurse liaison [phone] if any additional questions.
--- NOTE | 2025-05-24 07:40 | PM.HPGS ---
History of Present Illness History of Present Illness Consent: Risks, benefits, and alternatives have been discussed and questions answered. Patient agrees to proceed with procedure. Chief complaint: elevated psa Narrative: Christophe Rocha is a 79 year old male with elevated PSA: 03/2025: PSA: 4.83 03/2025: ?mpMRI Prostate: Volume: 165gm ?PI-RADS 5: 2.8cm right PZ base-mid Review of Systems Review of Systems: All systems reviewed & are unremarkable except as noted in HPI and below PMFSH Past Medical History Medical History CKD (chronic kidney disease) Chronic anticoagulation Atrial fibrillation Family History Family History Mother Acute myocardial infarction <65yo Social History Social History Smoking packs per day: 1 Smoking cigarettes per day: 20.0 Years smoked: 40 Smoking pack-years: 40.00 Smoking status: Former smoker Tobacco type: cigarettes Smoking end date: 08/12/89 Alcohol intake: current Alcohol use details: 1 per month Substance use: never Substance use type: does not use Lack of Transportation: No Lack of Food: Never True Current Housing: I Have Housing Concerned About Future Housing: No Difficulty Paying Gas/Electric Bills: No Difficulty Paying for Meds: No Currently Unemployed: No Education: High School Diploma/GED Difficulty w/ Childcare or Family Care: No Living arrangements: with family Additional living arrangements comments: Spiritual care concerns: No Meds Home Medications and Allergies Home Medications ?Medication ?Instructions ?Recorded ?Confirmed ?Type apixaban 5 mg tablet (Eliquis) 5 mg PO BID 07/05/24 05/18/25 History atorvastatin 10 mg tablet 40 mg PO HS 07/05/24 05/18/25 History metoprolol succinate 50 mg 50 mg PO DAILY 07/05/24 05/18/25 History tablet,extended release 24 hr propafenone 325 mg 325 mg PO BID 07/05/24 05/18/25 History capsule,extended release 12 hr furosemide 20 mg tablet 20 mg PO DAILY 03/19/25 05/18/25 History Held on 05/18/25. Instructions: .Provider Order lisinopril 10 1 tablet PO DAILY 03/19/25 05/18/25 History mg-hydrochlorothiazide 12.5 mg tablet tadalafil 10 mg tablet 10 mg PO DAILY 03/19/25 05/18/25 History eszopiclone 2 mg tablet (Lunesta) 2 mg PO ONCE #1 tablet 04/21/25 05/18/25 Rx diltiazem HCl 180 mg 180 mg PO DAILY 05/18/25 05/18/25 History capsule,extended release 24 hr Allergies Allergy/AdvReac Type Severity Reaction Status Date / Time No Known Allergies Allergy Verified 05/18/25 11:50 Exam Const: General: no acute distress Resp: Effort & Inspection: normal respiratory effort GI: Inspection: non-distended GI Palp: No abdominal tenderness and No Guarding due to palpation present (GI) Auscultation: normal bowel sounds Assessment and Plan Assessment and plan (1) Elevated PSA: Code(s): R97.20 - Elevated prostate specific antigen [PSA] Status: Acute Assessment and Plan: Transrectal ultrasound guided fusion biopsy prostate
--- OUTSIDE RECORDS SUMMARY | 2025-05-27 00:45 | XMS_ITS | Clinical Summary ---
Author Organization [facility] Address [address] [place] [address] Care Team Providers Care Tanker Truck Driver Name Role Phone Dorys Driscoll MD Primary Care Provider [phone] Source Comments [facility],non-owned Affiliates and Associated Physician Practices is amultiple site organization consisting of ambulatory clinics and hospital sitesin [place], [place], [place] and [place]. This disclosure is being madepursuant to the Care Everywhere program and may not contain all information available regarding this patient. 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
--- OUTSIDE RECORDS SUMMARY | 2025-05-27 00:45 | XMS_ITS | Data Portability ---
Author Organization [place] [facility] [employer], Main Office Address [address] [place] [address] Care Team Providers Care Leather Shaver Name Role Phone KEELY NOVA Primary Care Provider Assessment Encounter Date Assessment Date Assessment LastModified by Organization Details LastModified Time 04/29/2025 04/29/2025 anosmia [email or web address] Not available 10:36:27 Plan of Treatment Reminders Order Date Submit Date Provider Last Modified By Organization Details Last Modified Time Details Appointments Medicare Wellness 30 2024 09:30A M JUANI Cruz Not available Not available Not available Lab lipid panel, serum 2024 025 MINH [facility], [address], [place], [address], 03/17/2025 12:09:33 CMP, serum or plasma 2024 025 MINH [facility], [address], [place], [address], 03/17/2025 12:09:32 HbA1c (hemoglob in A1c), blood 2024 025 [facility], [address], [place], [address], 03/23/2025 09:29:41 TSH + free T4, serum 2024 025 MINH [facility], [address], [place], [address], 03/17/2025 12:09:32 CBC w/ auto diff 2024 025 MINH [facility], [address], [place], [address], 03/17/2025 12:09:32 urinalysi s, complete 2024 025 [facility], [address], [place], [address], 03/23/2025 09:29:42 Referral ENT surgery referral - Please call patient to schedule an appointme nt. Thank you. 2024 025 ALBIN Huynh MD, [address], [place], [address], 03/16/2025 13:51:58 sleep medicine referral - Has sleep apnea , machine too big , clumsy . Please eval and treat . Please call patient to schedule an appointme nt. Thank you 2024 025 [email or web address] [facility] ([facility]), [address], [place], [address], 03/30/2025 08:53:42 nephrolog ist referral - Had pneumonia , is fatigued m bruise and swelling left ankle , Please eval and treat. Is cold all the time. Please call patient to schedule an appointme nt. Liliya. 2024 025 [email or web address] Man Kaminski DO, [address], [address], [place], [address], 03/30/2025 08:53:26 Procedures None recorded. Surgeries None recorded. Imaging US, duplex, venous, lower extremity , unilatera l - positive corin's left , on Eliquis 2024 025 [facility] (Imaging), [address], [place], [address], 12/22/2024 11:59:12 Medication Orders Lipo-Flav onoid Plus 200 mg-100 mg tablet 2024 MINH [facility] [employer] [facility] #85349, [address], [place], [id number], 04/29/2025 10:38:17 Solu-Medr ol (PF) 125 mg/2 mL solution for injection 2024 Not available 04/06/2025 11:37:20 meloxicam 15 mg tablet 2024 [email or web address] [facility] [employer] #78217, [address], [place], [id number], 04/29/2025 10:04:55 erythromy nell 5 mg/gram (0.5 %) eye ointment 2024 [facility] [employer] [employer] #35507, [address], [place], [id number], 04/06/2025 10:54:29 Patient TargetsNo targets recorded. Patient InstructionsNo instructions recorded. 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 Is cold all the time. Please call patient to schedule an appointment. Thankyou. Referring Physician: Chance Larkin [facility], Encounter Date: 12/07/2024 Sleep Medicine Referral for Idiopathic sleep related non-obstructive alveolar hypoventilation Has sleep apnea , machine too big , clumsy . Please eval and treat . Please call patient to schedule an appointment. Thank you Referring Physician: [facility] L[facility], Encounter Date: 12/14/2024 ENT Surgery Referral for Bryon ateral tinnitus Please call patient to schedule an appointment. Thank you. Referring Physician: Keely Nova [facility], Encounter Date: 03/16/2025 Results Created Date Observation Date Name Description Value Unit Range Abnormal Flag Note LastModifiedBy Organization Detail LastModifiedTime 11/20/19 25 11/18/2024 US, duple x, venou s, lower extre mity, compl ete No observ ation record ed. [email or web address] [facility] (Imaging) [address], [place], [address], 03/25/2025 12:08:20 03/19/20 25 03/18/2025 XR, chest No observ ation record ed. [email or web address] [facility] [address], [place], [address], 04/05/2025 17:13:24 Result Notes None recorded. Problems Name Problem SNOMED Code Status Onset Date Resolution Date Notes Provider Name and Address Organization Details Recorded Time Viral bronchitis 85185783 Active Not Available [facility] 3 09:24:16 Venous insufficie ncy of lower limb 310305674 Active Not Available [facility] 3 09:24:17 Tinea faciei 348530616 Active Not Available [facility] 3 09:24:17 Low back pain 651916827 Active Not Available [facility] 3 09:24:17 Prostate specific antigen above reference range 044004035 Active Not Available [facility] 3 09:24:17 Peripheral vascular disease 510143727 Active Not Available [facility] 3 09:24:17 Aphthous ulcer of mouth 965199279 Active Not Available [facility] 3 09:24:17 Cough 09762609 Active Not Available [facility] 3 09:24:17 Hyperlipid emia 66964457 Active Not Available [facility] 3 09:24:17 Essential hypertensi on 09576576 Active Not Available [facility] 3 09:24:17 Edema of lower extremity 990549911 Active 2022 Not Available [facility] 3 09:24:16 Laboratory test result abnormal 894924834 Active 2022 Not Available [facility] 3 09:24:17 Abnormal weight 26910162 Active 2023 Tori Hoffmann MA null, [place] [facility] 4 10:35:56 Obesity 983963412 Active 2023 CHINEDU Helm [address], [address], [place], [address] , [place] [facility] 4 10:43:37 Atrial fibrillati on 54878223 Active 2023 CHINEDU Helm [address], [address], [place], [address] , [employer] [place] [facility] [place] [facility] [employer] 4 10:43:57 Screening for malignant neoplasm of prostate Active 2023 CHINEDU Helm [address], [address], [place], [address] , [place] [facility] [place] [facility] [employer] 4 10:50:08 Cardiomega ly 2679340 Active 2023 Elza Snider RN null, [place] [facility] [employer] 4 12:43:05 Folliculit is 40584977 Active 2023 CHINEDU Helm [address], [address], [place], [address] , [place] [facility] 4 14:16:41 Gout 13805196 Active 2023 CHINEDU Helm [address], [address], [place], [address] , [place] [facility] 4 12:40:29 Gastroesop hageal reflux disease 254936596 Active 2023 CHINEDU Helm [address], [address], [place], [address] , [employer] [place] [facility] [employer] 4 10:16:43 Bilateral calf pain 5075968052716 9104 Active 2024 CHINEDU Helm [address], [address], [place], [address] , [place] [facility] [employer] 5 09:29:16 Serum creatinine above reference range 066880705 Active 2024 CHINEDU Helm [address], [address], [place], [address] , [place] [facility] 5 12:01:57 Pain of left calf 1171851328805 109 Active 2024 CHINEDU Helm [address], [address], [place], [address] , [place] [facility] 5 12:05:25 Idiopathic sleep related non-obstru ctive alveolar hypoventil ation 540595386 Active 2024 CHINEDU Helm [address], [address], [place], [address] , [place] [facility] 5 10:02:34 Hordeolum externum of lower eyelid of left eye 1281655349811 02 Active 2024 JUANI Cruz [address], [address], [place], [address] , [facility] 5 10:36:39 Bilateral tinnitus 2162574401801 Active 2024 Osvaldo Huynh MD [address], [address], [place], [address] , [facility] 5 10:36:11 Chronic kidney disease stage 3B 297882942 Active 2024 JUANI Cruz [address], [address], [place], [address] , [place] [facility] 5 14:04:42 Gouty arthritis of toe 852703973 Active 2024 JUANI Cruz [address], [address], [place], [address] , [place] [facility] 5 11:24:07 Loss of sense of smell 00839593 Active 2024 Osvaldo Huynh MD [address], [address], [place], [address] , [facility] [employer] [facility] 10:37:45 Notes:Some problems listed i n Documents: #[id number], #[id number], #[id number] could not be added to this patient's chart. Please review these documents and add these problems to the patient's chart manually as needed. Problem Notes None recorded. Procedures Surgical History Date Name Laterality Status Provider Name and Address Organization Details Recorded Time 11/18/19 25 Transitional_Care _Management completed DEMETRICE Garnica [facility] [employer] [facility] 11/17/2024 09:09:11 07/15/20 24 Medicare Wellness CPT Code, subsequent completed November STEFANO Cash [facility] [employer] [facility] 07/15/2024 10:27:56 excision of melanoma completed Not Available [facility] 10/10/2022 08:43:36 tonsillectomy completed Naida Osorio RN [facility] [employer] [facility] 04/29/2025 10:09:38 Imaging Results None recorded. Procedure Notes None [...] Available Not Available Not Available atorvasta tin 40 mg tablet TAKE 1 TABLET BY MOUTH EVERY DAY AT BEDTIME active Not Available Not Available No t Available promethaz ine-DM 6.25 mg-15 mg/5 mL oral syrup TAKE 5 ML BY MOUTH EVERY 4 HOURS FOR 10 DAYS NEEDED 11/17 completed Not Available Not Available Not Available loperamid e 2 mg capsule TAKE 1 CAPSULE BY MOUTH EVERY 6 HOURS NEEDED FOR LOOSE STOOLS 03/16 completed Not Available Not Available Not Available atorvasta tin 10 mg tablet TAKE 1 TABLET BY MOUTH EVERY DAY 03/16 completed Not Available Not Available Not Available diltiazem CD 180 mg capsule,e xtended release 24 hr Take 1 capsule every day by oral route. active Not Available Not Available No t Available metoprolo l succinate ER 50 mg tablet,ex tended release 24 hr TAKE 1 TABLET BY MOUTH EVERY DAY active Not Available Not Available No t Available valacyclo vir 1 gram tablet TK 2 TS PO Q 12 H FOR 1 DAY 11/09 completed Not Available Not Available Not Available meloxicam 15 mg tablet TAKE 1 TABLET BY MOUTH EVERY DAY NEEDED 04/29 completed Not Available Not Available Not Available [...] Take 1 mL by injectio n route. 03/16 completed pt tolerate d well Not Available Not Available Not Available famotidin e 20 mg tablet TAKE 1 TABLET BY MOUTH DAILY 04/06 completed Not Available Not Available Not Available pravastat in 80 mg tablet 11/09 completed Not Available Not Available Not Available dicyclomi ne 20 mg tablet TAKE 1 TABLET BY MOUTH THREE TIMES DAILY NEEDED FOR ABDOMINA L PAIN 03/16 completed Not Available Not Available Not Available benzonata te 100 mg capsule TAKE 1 CAPSULE BY MOUTH EVERY 8 HOURS NEEDED FOR COUGH 11/17 completed Not Available Not Available Not Available erythromy nell 5 mg/gram (0.5 %) eye ointment APPLY 1 CM RIBBON INTO THE LOWER CONJUNCT IVAL SAC(S) IN THE AFFECTED EYE(S) BY OPHTHALM IC ROUTE 3 TIMES PER DAY 04/06 completed Not Available Not Available Not Available clotrimaz ole-betam ethasone 1 %-0.05 % topical cream Apply 1 applicat ion twice a day by topical route for 15 days. active Not Available Not Available No t Available metronida zole 0.75 % topical cream APPLY THIN LAYER TOPICALL Y TO THE AFFECTED AREA TWICE DAILY IN THE MORNING AND IN THE EVENING 03/16 completed Not Available Not Available Not Available metoprolo l tartrate 50 mg tablet [...] BEFORE A MEAL FOR EPIGASTR IC PAIN active Not Available Not Available No t Available lisinopri l 20 mg-hydroc hlorothia zide 25 mg tablet TAKE 1 TABLET BY MOUTH EVERY DAY 03/16 completed Not Available Not Available Not Available aspirin 81 mg chewable tablet CHEW AND SWALLOW 1 TABLET BY MOUTH EVERY DAY 11/17 completed Not Available Not Available Not Available allopurin ol 300 mg tablet Take 1 tablet by mouth daily 2024 active Not Available Not Available Not Avai lable furosemid e 20 mg tablet TAKE 1 TABLET BY MOUTH EVERY DAY 03/16 completed Not Available Not Available Not Available lisinopri l 10 mg-hydroc hlorothia zide [...] completed Not Available Not Available Not Available colchicin e 0.6 mg tablet TAKE 2 TABLETS BY MOUTH NOW THEN TAKE 1 TABLET BY MOUTH 1 HOUR LATER 04/06 completed Not Available Not Available Not Available ondansetr on 4 mg disintegr ating tablet DISSOLVE 1 TABLET ON THE TONGUE EVERY 8 HOURS NEEDED FOR NAUSEA OR VOMITING 03/16 completed Not Available Not Available Not Available [...] Not Available Not Available No t Available omeprazol e 20 mg tablet,de layed release Take 1 tablet by mouth twice daily before meals as needed for acid reflux 04/06 completed Not Available Not Available Not Available Lipo-Flav onoid Plus 200 mg-100 mg tablet Take 1 tablet by oral route. 2024 active Not Available Not Available Not Avai lable Solu-Medr ol (PF) 125 mg/2 mL solution for injection Take 125 mg every day by injectio n route as directed for 1 day. 2024 active Not Available Not Available Not Avai lable Vicodin ES 7.5 mg-300 mg tablet Take 1 TABLET by mouth one hour before the schedule d procedur e. active Not Available Not Available No t Available Eliquis 5 mg tablet TAKE 1 TABLET BY MOUTH TWICE DAILY active Not Available Not Available No t Available Farxiga 10 mg tablet TAKE 1 TABLET BY MOUTH EVERY DAY DIRECTED 04/06 completed Not Available Not Available Not Available Contrave 8 mg-90 mg tablet,ex tended [...] blood by Pulse oximetry Heart rate Systolic And Diastolic Provider Name and Address Organization Details Last Updated DateTime 5 175.26 cm 32.5 kg/m2 62218.3 2 g 96.8 [degF] 94 % 94 % 86 /min 122/72 mm[Hg] Katie Bowden Tiffanie [facility] [employer] [facility] 5 11:40:48 Date Recorded Body height Body mass index (BMI) Body weight Body temperature Heart rate Oxygen saturation Oxygen saturation in Arterial blood by Pulse oximetry Systolic And Diastolic Provider Name and Address Organization Details Last Updated DateTime 5 175.26 cm 32.3 kg/m2 73376.7 3 g 97.7 [degF] 88 /min 96 % 96 % 120/74 mm[Hg] Katie Bowden Tiffanie [facility] [employer] [facility] 5 09:35:24 Date Recorded Body height Body mass index (BMI) Body weight Body temperature Heart rate Respiratory rate Oxygen saturation Oxygen saturation in Arterial blood by Pulse oximetry Pain severity - 0-10 verbal numeric rating [Score] - Reported Systolic And Diastolic Provider Name and Address Organization Details Last Updated DateTime 5 175.26 cm 31.2 kg/m2 18755.0 9 g 96.8 [degF] 77 /min 24 /min 96 % 96 % 0 118/78 mm[Hg] Mckayla Carrizales RN [facility] [employer] [facility] 5 10:00:05 Date Recorded Body height Body mass index (BMI) Body weight Body temperature Heart rate Respiratory rate Oxygen saturation Oxygen saturation in Arterial blood by Pulse oximetry Pain severity - 0-10 verbal numeric rating [Score] - Reported Systolic And Diastolic Provider Name and Address Organization Details Last Updated DateTime 5 175.26 cm 31.5 kg/m2 21103.2 2 g 97.1 [degF] 95 /min 20 /min 99 % 99 % 8 118/78 mm[Hg] Mckayla Carrizales RN [facility] [employer] [facility] 5 11:00:31 Date Recorded Body height Body mass index (BMI) Body weight Body temperature Provider Name and Address Organization Details Last Updated DateTime 04/29/2025 175.26 cm 32.3 kg/m2 03934.73 g 97.5 [degF] Naida Osorio RN [place] [facility] [employer] [facility] 04/29/2025 10:11:29 Social History Question Answer Notes LastModified by Organizat ion Details LastModified Time Tobacco Smoking Status Former Smoker Not Available [facility] 10/10/2022 08:43:31 Do You Have An Advance Directive? No Information not available 03/16/2025 Are You Blind Or Do You Have Difficulty Seeing? Yes Glasses For Reading Information not available 03/16/2025 What Is Your Level Of Caffeine Consumption? Occasional Information not available 03/16/2025 In The 14 Days Before Symptom Onset, Have You Had Close Contact With A Laboratory-confi rmed COVID-19 While That Case Was Ill? No Information not available 03/16/2025 In The 14 Days Before Symptom Onset, Have You Had Close Contact With A Person Who Is Under Investigation For COVID-19 While That Person Was Ill? No Information not available 03/16/2025 Are You Deaf Or Do You Have Serious Difficulty Hearing? No Ringing Information not available 03/16/2025 What Type Of Diet Are You Following? REGULAR [id number] Information not available 10/10/2022 Have There Been Any Changes To Your Family Or Social Situation? No Information not available 03/16/2025 When Did You Quit Smoking? 16+yearssince lastcigarette [id number] Information not available 10/10/2022 Do You Use Insect Repellent Routinely? No Information not available 03/16/2025 Where Do You Live? Other Senior Apartment Information not available 03/16/2025 Advance Directive- Providers Has Reviewed Directive And Consents To Follow Them (insert Provider Name With Any Objectives In Notes Field) Yes Information not available 04/06/2025 Presence Of Domestic Violence No Information not available 04/06/2025 Guns Present In The Home? No Information not available 04/06/2025 Are You Able To Care For Yourself? Yes Information not available 04/06/2025 Are You Blind Or Do Yo Have Difficulty Seeing? Yes Wears Glasses Information not available 04/06/2025 Are You Deaf Or Do You Have Serious Difficulty Hearing? Yes Information not available 04/06/2025 General Stress Level? Low Information not available 04/06/2025 Live Alone Of With Others? With Others Information not available 04/06/2025 Do You Have A Medical Power Of [employer]? No Information not available 03/16/2025 What Was The Date Of Your Most Recent Tobacco Screening? 07/15/2024 [email or web address] Information not available 07/15/2024 How Many Children Do You Have? 1 Information not available 04/06/2025 Do You Have Any Pets? Yes Information not available 03/16/2025 What Is Your Relationship Status? Information not available 03/16/2025 Do You Use Your Seat Belt Or Car Seat Routinely? Yes Information not available 03/16/2025 Do You Have Smoke And Carbon Monoxide Detectors In Your Home? Yes Information not available 03/16/2025 At What Age Did You Start Smoking Tobacco? 15 [id number] Information not available 10/10/2022 Are You Passively Exposed To Smoke? No Information not available 03/16/2025 Are There Any Smokers In Your House? No Information not available 03/16/2025 Do You Participate In Social Media? Yes Information not available 03/16/2025 Do You Use Sunscreen Routinely? No Information not available 03/16/2025 Have You Recently Traveled Abroad? No Information not available 03/16/2025 Do You Have Difficulty Walking Or Climbing Stairs? No Information not available 03/16/2025 Do You Have Any Dietary Restrictions? No [id number] Information not available 10/10/2022 Sex: Unknown Functional Status Question Answer Note LastModified by Organizat ion Details LastModified Time Do you or have you ever used any other forms of tobacco or nicotine? No [id number] Information not available 10/10/2022 What is your level of alcohol consumption? None Information not available 03/16/2025 Are you currently employed? No retired Information not available 03/16/2025 Do you have transportation difficulties? No Information not available 03/16/2025 Are you able to walk independently without assistance or assistive devices? YESWOREST Information not available 03/16/2025 Do you have difficulty doing errands alone? No Information not available 03/16/2025 Are you able to care for yourself independently? Yes Information not available 03/16/2025 Do you have difficulty dressing, bathing, grooming, or toileting? No Information not available 03/16/2025 What is your exercise level? None [id number] Information not available 10/10/2022 Mental Status Question Answer Note LastModified by Organizat ion Details LastModified Time Do you feel stressed (tense, restless, nervous, or anxious, or unable to sleep at night)? [id number] Information not available 03/16/2025 Do you have difficulty concentrating, remembering or making decisions? Yes Information no t available 03/16/2025 Family History Relationship Description Onset Age of this Age Resolved Age Notes LastModified by Organization Details LastModified Time Father Diabetes mellitus Not available 2024 10:00:28 Father Glaucoma Not available 03/16/2025 10:00:37 Mother Cardiac finding Not available 2024 10:00:48 Notes:NO ENT Medical History Condition Response OBESITY Y HEARTBURN / REFLUX Y HEPATITIS / LIVER DISEASE Y GOUT Y PAIN Y HYPERTENSION Y Immunizations Vaccine Type Date Status Note Provider Nam e and Address Organization Details Recorded Time Pneumococcal conjugate PCV20, polysaccharide QUH772 conjugate, adjuvant, PF 5 completed Mckayla Carrizales RN null, [place] [facility] [employer] [facility] 03/16/2025 11:33:11 Influenza, high-dose, trivalent, PF 4 completed CHINEDU Helm [address], [place], [address], [facility] 07/25/2024 21:14:08 Past Encounters Encounter ID Performer Location Encounter Start Date Encounter Closed Date Diagnosis/Indication Diagnosis SNOMED-CT Code Diagnosis ICD10 Code Diagnosis IMO Codes Diagnosis Note [id number] Dorys Driscoll MD [facility]athy deal [facility] [place] [address] 11/09/2021 00:00:00 11/09/2021 19:46:51 [id number] Dorys Driscoll MD [facility] Cathy deal [address] [place] [address] [place] [address] 12/25/2022 14:14:06 12/25/2022 15:15:04 Renewal of prescription 586992042 Z76.0 Hyperlipidemia 65545774 E78.5 Screening for malignant neoplasm of prostate 786354654 Z12.5 Thyroid di sorder screening 660509370 Z13.29 Edema of l ower extremity 137627862 R60.0 Elevate legs. Watch salt in diet and needs to exercise to lose weight. Use compressio n stockings. [id number] Dorys Driscoll MD [facility]athy deal [facility] [place] [address] 09/12/2023 10:31:44 09/12/2023 10:58:28 Abnormal weight 95547359 R63.4 Essential hypertension 08292586 I10 Hyperlipidemia 36347598 E78.5 Atrial fibrillation 4943 6004 I48.91 Obesity 950497367 E66.9 Screening for malignant neoplasm of prostate 936596616 Z12.5 Diabetes m ellitus screening 291333438 Z13.1 Hyperlipid emia screening 011796438 Z13.220 Screening for disorder 056970583 Z13.9 Thyroid di sorder screening 074690537 Z13.29 Venous ins ufficiency of lower limb 627639352 I87.2 [id number] Dorys Driscoll MD [facility] Cathy deal [facility] [place] [place] [address] 10/23/2023 13:57:19 10/23/2023 14:37:13 Folliculitis 08021561 L73.9 Atrial fibrillation 4943 6004 I48.91 Cardiomegaly 8435562 I51 .7 Essential hypertension 25816075 I10 Hyperlipidemia 35460176 E78.5 Peripheral vascular disease 373756387 I73.9 Prostate s pecific antigen above reference range 398535978 R97.20 Venous ins ufficiency of lower limb 026229234 I87.2 [id number] Cristo Ramires MD [facility] [address] [place] [address] 04/02/2024 12:02:49 04/02/2024 12:50:03 Gout 96157628 M10.9 Diabetes m ellitus screening 971632531 Z13.1 Hyperlipid emia screening 184186354 Z13.220 Screening for disorder 516381711 Z13.9 Thyroid di sorder screening 139773815 Z13.29 [id number] Cristo Ramires MD [place] [address] [place] [address] 04/15/2024 09:26:42 04/15/2024 10:21:38 Gout 60808895 M10.9 Gastroesop hageal reflux disease 906995491 K21.9 Atrial fibrillation 4943 6004 I48.91 Cardiomegaly 4467725 I51 .7 Essential hypertension 62096510 I10 Hyperlipidemia 10902749 E78.5 Peripheral vascular disease 722317597 I73.9 Venous ins ufficiency of lower limb 578585708 I87.2 [id number] Cristo Ramires MD [address] [address] 07/15/2024 10:05:06 07/15/2024 10:49:22 Administration of influenza vaccine 94166003 Z23 Adult [facility] th examination 785944601 Z00.00 Screening for disorder 886177798 Z13.9 Renewal of prescription 651499214 Z76.0 Cough 22965574 R05.9 [id number] Cristo Ramires MD [address] [address] 10/13/2024 10:19:09 10/15/2024 09:11:34 Gastroesophageal reflux disease 873854940 K21.9 Gout 55736594 M10.9 Atrial fibrillation 4943 6004 I48.91 Essential hypertension 12413243 I10 Hyperlipidemia 25725996 E78.5 Peripheral vascular disease 307372730 I73.9 Edema of l ower extremity 719076908 R60.0 Obesity 163705303 E66.9 [id number] Cristo Ramires MD [address] [address] 11/17/2024 08:58:30 11/17/2024 09:53:01 Transition of care 3642450608 105 Z75.8 Atrial fibrillation 4943 6004 I48.91 Essential hypertension 00489763 I10 Bilateral calf pain 1563 400661 8061134 M79.661 M79.662 Gastroesop hageal reflux disease 480314158 K21.9 Hyperlipidemia 28825339 E78.5 Peripheral vascular disease 074488417 I73.9 [id number] Cristo Ramires MD [address] [address] 12/07/2024 11:28:54 12/07/2024 12:14:01 Cardiomegaly 2676694 I51.7 Serum crea tinine above reference range 880572514 R79.89 Pain of left calf 443511 4096 311800 M79.112 [id number] Cristo Ramires MD [address] [address] 12/14/2024 09:21:45 12/14/2024 10:19:11 Idiopathic sleep related non-obstructive alveolar hypoventilation 442824164 G47.34 400315 [id number] Cristo Ramires MD [address] [address] 03/16/2025 09:44:27 03/16/2025 10:13:28 Hordeolum externum of lower eyelid of left eye 1319971676 06691 H00.489 8888004 Recurrent, advised to use warm compress, wash hands frequently Requires v accination against Streptococcus pneumoniae 9839380777 Z23 308345 Bilateral tinnitus 90269 17814 102 H93.13 604959 Chronic, worsening. Notes decreased hearing Obesity 982368215 E66.9 Discussed diet and exerciseLa bs checked as below Hyperlipidemia 30782276 E78.5 Will check labs Serum crea tinine above reference range 797488615 R79.89 [id number] Cristo Ramires MD [facility] [address] [address] 04/06/2025 10:42:03 04/06/2025 12:25:35 Gouty arthritis of toe 281402270 M10.9 88317454 Present and worsening for the last 2 weeksMild improvemen t with colchicine [id number] Osvaldo Huynh MD S[facility] [place] [address] [place] [address] 04/29/2025 10:02:45 04/30/2025 09:25:44 Bilateral tinnitus 8285612544 102 H93.13 880035 Loss of se nse of smell 75643216 R43.0 12384 Health Concerns Section Related Observation LastModified by Organization Detai ls LastModified Time None Recorded Concern Status LastModified by Organization Details LastModified Time None Recorded Advance Directives Directive N: Payers Insurance Date Sequence Insurance Name Policy Number Policy Dyson Covered Member ID Dyson Member ID Guarantor Name 10/23/2023 1 [facility] (MEDICARE REPLACEMENT/A DVANTAGE - HMO) NJDUALCM Christophe Rocha [id number] Christophe Rocha 04/28/2025 2 [place] WHEN MEDICARE OR MEDICARE REPLACEMENT PRIMARY) Christophe Rocha [id number] Christophe Rocha 04/26/2025 1 [facility] (MEDICARE REPLACEMENT/A DVANTAGE - PPO) [id number] Christophe Rocha [id number] Christophe Rocha Notes Date Note Type Note Provider Name and Address Organization Details Recorded Time 12/07/2024 text/html ROS as noted in the HPI had pneumonia , very tired since pneumonia , pain left calf CHINEDU Helm [address], [place], [address], [employer] 12/13/2024 14:49:19 12/14/2024 text/html ROS as noted in the HPI refuses to use CPAP , too big , bulky . CHINEDU Helm [address], [place], [address], [employer] 12/16/2024 11:07:31 03/16/2025 text/html Christophe Rocha is a 79 year old male patient here today to establish care. He was previously under the care of Ronan Larkin. His past medical history is significant for atrial fibrillation and hypertension. He currently sees cardiology (Dr. Carter) for this. Eliquis managed by PCP. He has concerns with tinnitus and dry skin around the ears. Tinnitus has been present for 20 years He has a stye on the left lower eyelid. scheduled for a sleep study on 03/22 Flu shot: OVID vaccines: declinesTdap: within the last 10 yearsPneumonia vaccines: PCV20 03/16/25Shingles vaccines: declinesRSV: recommendedPSA: mildly elevated 2022, seeing a urologist, has a biopsy scheduledColonoscopy : does not want to do anymore JUANI Cruz [address], [facility] [address], [place], [address], [employer] 03/16/2025 11:35:49 04/06/2025 text/html Christophe Rocha is a 79 year old male patient here today with a gout flare Notes that this began after his corporate ethics officer changed his HCTZHe has pain, warmth, swelling and erythema in the right great toe. JUANI Cruz [address], [place], [address], [employer] 04/06/2025 12:06:27 04/29/2025 text/html patient has had tinnitus since age 40. There has been no noise exposure and it is believed by his daughter to be genetic Osvaldo Huynh MD [address] [facility], [facility] [address], [place], [address], [place] [facility] [place] [employer] 04/29/2025 10:38:24
--- NOTE | 2025-05-27 06:24 | WPDHPUPDATE1 ---
History and Physical Update Update Date/Time: 05/27/25 06:24 History and Physical has been reviewed, including an updated exam of the patient. There are NO changes in the patient's condition. Risks, benefits, and alternatives have been discussed and questions answered. Patient agrees to proceed with procedure.
[2025-05-27 08:40] VITALS: BP 150/90; PULSE 89; RESP 18; TEMP 36.1; O2SAT 96
--- NOTE | 2025-05-27 08:54 | WPDANESEPPF ---
Anes - Initial Pre Proc Eval Procedure: Operation Date: 05/27/25 10:30 Proposed Procedures p Transrectal Fusion Guided Prostate Biopsy - Nick Blanchard MD Date/Time: 05/27/25 08:54 Surgeon: Nick Blanchard MD Pre Op Diagnosis: elevated psa Patient Data Age: 79 Gender: M Height: 1.75 m Weight: 98 kg Last Vital Signs Temp 36.7 C 05/18/25 12:10 Pulse 95 05/18/25 12:10 Resp 16 05/18/25 12:10 BP 142/80 H 05/18/25 12:10 Pulse Ox 95 05/18/25 12:10 O2 Del Method Room Air 05/18/25 12:10 Allergies Allergy/AdvReac Type Severity Reaction Status Date / Time No Known Allergies Allergy Verified 05/27/25 09:21 Home Medications ?Medication ?Instructions ?Recorded ?Confirmed ?Type apixaban 5 mg tablet (Eliquis) 5 mg PO BID 07/05/24 05/18/25 History atorvastatin 10 mg tablet 40 mg PO HS 07/05/24 05/18/25 History metoprolol succinate 50 mg 50 mg PO DAILY 07/05/24 05/18/25 History tablet,extended release 24 hr propafenone 325 mg 325 mg PO BID 07/05/24 05/18/25 History capsule,extended release 12 hr furosemide 20 mg tablet 20 mg PO DAILY 03/19/25 05/18/25 History Held on 05/18/25. Instructions: .Provider Order lisinopril 10 1 tablet PO DAILY 03/19/25 05/18/25 History mg-hydrochlorothiazide 12.5 mg tablet tadalafil 10 mg tablet 10 mg PO DAILY 03/19/25 05/18/25 History eszopiclone 2 mg tablet (Lunesta) 2 mg PO ONCE #1 tablet 04/21/25 05/18/25 Rx diltiazem HCl 180 mg 180 mg PO DAILY 05/18/25 05/18/25 History capsule,extended release 24 hr Patient hx anesthesia problems: none Family hx anesthesia problems: none Results Review: All pre-operative results and documents have been reviewed as part of the pre-operative evaluation. [facility] Past Medical History Medical History (Updated 05/27/25 @ 09:21 by Panfilo J. Luchtefeld, DO) JOCE (obstructive sleep apnea) Hyperlipidemia Hypertension CVA (cerebral vascular accident) CKD (chronic kidney disease) Chronic anticoagulation Atrial fibrillation Family History Family History Mother Acute myocardial infarction <65yo Social History Social History Smoking status: Former smoker Tobacco type: cigarettes Alcohol intake: current Alcohol use details: 1 per month Substance use: never Substance use type: does not use Lack of Transportation: No Lack of Food: Never True Current Housing: I Have Housing Concerned About Future Housing: No Difficulty Paying Gas/Electric Bills: No Difficulty Paying for Meds: No Currently Unemployed: No Education: High School Diploma/GED Difficulty w/ Childcare or Family Care: No Living arrangements: with family Additional living arrangements comments: Spiritual care concerns: No Anes - Eval Final PreProcedure Day of Procedure 05/27/25 08:54 Patient weight: obese Heart: regular rate and rhythm Lungs: clear to auscultation Airway: Mallampati scale class II and special considerations poor dentition Neurological: alert and oriented Last oral intake: >/= 8 hours ASA classification: III Emergent: no Anesthetic plan: proceed Anesthesia type and monitoring: general GIVS and standard monitoring Results Review: All pre-operative results and documents have been reviewed as part of the pre-operative evaluation. Informed Consent: The patient's anesthetic plan and its attendant risks and benefits were discussed with the patient/family/POA. Questions were solicited and answers provided to the satisfaction of the patient/family/POA.
[2025-05-27] MEDS: LACTATED RINGERS 1,000 ML 30 ML IV CONT (09:10)
[2025-05-27 09:26] LABS: INR 1.0; Prothrombin Time 13.6 Seconds (11.1-14.7)
--- NOTE | 2025-05-27 10:18 | S_PTH ---
PATIENT: Christophe Rocha LOC: [facility] U#:[id number] AGE/SX: 79/M ROOM: RE05/27/[address]: Nick Blanchard MD : 1945 BED: DIS: 05/27/2025 SPEC #: [id number] RECD: 05/27/25 11:32 STATUS: DANAE REQ #: [id number] JOLENE: 05/27/25 10:[address]: Nick Blanchard DEPT: [facility] Surgical RECD BY: Cally Ovalle ENTERED: 05/27/25 11:32 SP TYPE: Surgical OTHR DR: Chance Larkin, PA Tissues: A - Prostate Bx B - Prostate Bx C - Prostate Bx D - Prostate Bx E - Prostate Bx F - Prostate Bx G - Prostate Bx H - Prostate Bx I - Prostate Bx J - Prostate Bx K - Prostate Bx L - Prostate Bx M - Prostate Bx Procedures: Unstained Slides Hematoxylin and Eosin Stain Prostate Biopsy PIN 4 Prostate Triple Stain
[2025-05-27 10:34] VITALS: BP 96/64; PULSE 95; RESP 20
--- NOTE | 2025-05-27 10:37 | W.PM.PROC2 ---
Procedure Note - Detailed Date of Procedure 05/27/25 Pre-op Diagnosis elevated psa Post-op Diagnosis Same Procedure Performed UroNav prostate biopsy Surgeon Nick Blanchard MD Anesthesia General Description of Procedure Patient is brought to the operative suite where he is positioned in the left lateral position. Systemic sedation is administered per the anesthesia department. Surgical time-out is undertaken and it's verified the patient has received preoperative antibiotics. Transrectal ultrasonography is undertaken with a standard transrectal probe. The Comeet system is used to superimpose his previously obtained mpMRI prostate images on the real-time transrectal ultrasond images. Prostate volume is calculated at 160cc. On the previous mpMRI there are one region of interest. Using the transrectal needle design for prostate biopsies 3 cores from each region of interest her obtain. We then proceeded with a standard 12 core prostate biopsy. Transrectal probe was removed and patient taken to recovery room having tolerated the procedure well. Blood loss was less than 10 cc. Drains No Pathology Yes
[2025-05-27 11:00] VITALS: BP 121/75; PULSE 87
[2025-05-27 11:15] VITALS: BP 120/77; PULSE 80
== END 2025-05-27 11:25 | disposition home or self-care (01) ==
PROVIDERS: PCP Physician Assistant; Visit Provider Urology
PROC: (CPT 55700; principal; 2025-05-27 10:30)
DX: C61 Malignant neoplasm of prostate (principal); E78.5 Hyperlipidemia, unspecified; G47.33 Obstructive sleep apnea (adult) (pediatric); I48.91 Unspecified atrial fibrillation; I12.9 Hypertensive chronic kidney disease with stage 1 through stage 4 chronic kidney disease, or unspecified chronic kidney disease; N18.9 Chronic kidney disease, unspecified; E66.9 Obesity, unspecified; Z68.31 Body mass index [BMI] 31.0-31.9, adult; Z79.01 Long term (current) use of anticoagulants; Z87.891 Personal history of nicotine dependence; Z86.79 Personal history of other diseases of the circulatory system; Z82.49 Family history of ischemic heart disease and other diseases of the circulatory system
CPT/HCPCS: 76872; 55700; 36415; 85610; 88344; G0416; J2003; J2704; J7120

== ENCOUNTER 2025-06-01 08:31 | Outpatient (CLI) | payer MEDICARE, MEDICAID, SELFPAY ==
--- OUTSIDE RECORDS SUMMARY | 2025-06-01 08:57 | XMS_ITS | Clinical Summary ---
Author Organization [facility] Address [address] [place] [address] Care Team Providers Care Gaming Dealer Name Role Phone Dorys Driscoll MD Primary Care Provider [phone] Source Comments [facility],non-owned Affiliates and Associated Physician Practices is amultiple site organization consisting of ambulatory clinics and hospital sitesin [place], [place], [place] and [place]. This disclosure is being madepursuant to the Care Everywhere program and may not contain all information available regarding this patient. 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
--- OUTSIDE RECORDS SUMMARY | 2025-06-01 08:57 | XMS_ITS | Data Portability ---
Author Organization [place] [employer], Main Office Address [address] [place] [address] Care Team Providers Care Oracle Programmer Analyst Name Role Phone KEELY NOVA Primary Care Provider [phone] Assessment Encounter Date Assessment Date Assessment LastModified [...] [facility], [address], [place], [address], 03/17/2025 12:09:33 CMP, serum or plasma 2024 025 [facility], [address], [place], [address], 03/17/2025 12:09:32 HbA1c (hemoglob in A1c), blood 2024 025 [facility], [address], [place], [address], 03/23/2025 09:29:41 TSH + free T4, serum 2024 025 [facility], [address], [place], [address], 03/17/2025 12:09:32 CBC w/ auto diff 2024 025 [facility], [address], [place], [address], 03/17/2025 12:09:32 urinalysi s, complete 2024 025 [facility], [address], [place], [address], 03/23/2025 09:29:42 Referral ENT surgery referral - Please call patient to schedule an appointme nt. Thank you. 2024 025 ALBIN Huynh MD, [address], [place], [address], 03/16/2025 13:51:58 sleep medicine referral - Has sleep apnea , machine too big , clumsy . Please eval and treat . Please call patient to schedule an appointme nt. Thank you 2024 025 [email or web address] [facility] ([facility]), [address], [place], [address], 03/30/2025 08:53:42 nephrolog ist referral - Had pneumonia , is fatigued m bruise and swelling left ankle , Please eval and treat. Is cold all the time. Please call patient to schedule an appointme nt. Liliya. 2024 025 [email or web address] Man Kaminski DO, [address], [address], [place], [address], 03/30/2025 08:53:26 Procedures None recorded. Surgeries None recorded. Imaging US, duplex, venous, lower extremity , unilatera l - positive corin's left , on Eliquis [email or web address] [facility]), [address], [place], [address], 12/22/2024 11:59:12 Medication Orders Lipo-Flav onoid Plus 200 mg-100 mg tablet [address] [facility], [address], [place], [id number], 04/29/2025 10:38:17 Solu-Medr ol (PF) 125 mg/2 mL solution for injection 2024 Not available 04/06/2025 11:37:20 meloxicam 15 mg tablet [email or web address] [facility]170, [address], [place], [id number], 04/29/2025 10:04:55 erythromy nell 5 mg/gram (0.5 %) eye ointment [address]24 [facility]87594, [address], [place], [id number], 04/06/2025 10:54:29 Patient TargetsNo targets recorded. Patient InstructionsNo instructions recorded. Reason for Referral Rad Tech Referral for Se rum creatinine above reference range Had pneumonia , is fatigued m bruise and swelling left ankle , Please eval and treat. Is cold all the time. Please call patient to schedule an appointment. Thankyou. Referring Physician: Chance Larkin [facility], Encounter Date: 12/07/2024 Sleep Medicine [...] appointment. Thank you. Referring Physician: Keely Nova [facility], Encounter Date: 03/16/2025 Results Created Date Observation Date Name Description Value Unit Range Abnormal Flag Note LastModifiedBy Organization Detail LastModifiedTime 11/20/19 25 11/18/2024 US, duple x, venou s, lower extre mity, compl ete No observ ation record ed. [email or web address] [facility] [address] [facility] [address], [place], [address], 03/25/2025 12:08:20 03/19/20 25 03/18/2025 XR, chest No observ ation record ed. [email or web address] [facility] [address] [facility] [address], [place], [address], 04/05/2025 17:13:24 Result Notes None recorded. Problems Name Problem SNOMED Code Status Onset Date Resolution Date Notes Provider Name and Address Organization Details Recorded Time Viral bronchitis 98367201 Active Not Available [facility] 3 09:24:16 Venous insufficie ncy of lower limb 629450756 Active Not Available [facility] 3 09:24:17 Tinea faciei 824490194 Active Not Available [facility] 3 09:24:17 Low back pain 576573584 Active Not Available [facility] 3 09:24:17 Prostate specific antigen above reference range 106159384 Active Not Available [facility] 3 09:24:17 Peripheral vascular disease 817027158 Active Not Available [facility] 3 09:24:17 Aphthous ulcer of mouth 061740984 Active Not Available [facility] 3 09:24:17 Cough 97035474 Active Not Available [facility] 3 09:24:17 Hyperlipid emia 79303532 Active Not Available [facility] 3 09:24:17 Essential hypertensi on 72219291 Active Not Available [facility] 3 09:24:17 Edema of lower extremity 472219694 Active 2022 Not Available [facility] 3 09:24:16 Laboratory test result abnormal 829089149 Active 2022 Not Available [facility] 3 09:24:17 Abnormal weight 77858647 Active 2023 Tori Hoffmann MA null, [place] [facility] 4 10:35:56 Obesity 236883075 Active 2023 [facility]m [address], [address], [place], [address] , [place] [facility] 4 10:43:37 Atrial fibrillati on 71524907 Active 2023 CHINEDU Helm [address], [address], [place], [address] , [employer] [place] [facility] [employer] 4 10:43:57 Screening for malignant neoplasm of prostate Active 2023 CHINEDU Helm [address], [address], [place], [address] , [place] [facility] [employer] 4 10:50:08 Cardiomega ly 4713224 Active 2023 Elza Snider RN null, [place] [facility] [employer] 4 12:43:05 Folliculit is 87622640 Active 2023 [facility] [address], [address], [place], [address] , [place] [facility] 4 14:16:41 Gout 32767889 Active 2023 [facility]IN[facility] Helm [address], [address], [place], [address] , [place] [facility] 4 12:40:29 Gastroesop hageal reflux disease 114636487 Active 2023 [facility] Helm [address], [address], [place], [address] , [employer] [place] [facility] [place] [facility] [employer] 4 10:16:43 Bilateral calf pain 8648556373061 9104 Active 2024 [facility] Helm [address], [address], [place], [address] , [place] [facility] [employer] 5 09:29:16 Serum creatinine above reference range 594770641 Active 2024 [facility]IN[facility] Helm [address], [address], [place], [address] , [place] [facility] 5 12:01:57 Pain of left calf 9408350809029 109 Active 2024 [facility]IN[facility] Helm [address], [address], [place], [address] , [place] [facility] 5 12:05:25 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 5 10:02:34 Hordeolum externum of lower eyelid of left eye 5928953687212 02 Active 2024 JUANI Cruz [address], [address], [place], [address] , [facility] [place] [facility] 5 10:36:39 Bilateral tinnitus 1879562597335 Active 2024 Osvaldo Huynh MD [address], [address], [place], [address] , [facility] 5 10:36:11 Chronic kidney disease stage 3B 391073670 Active 2024 JUANI Cruz [address], [address], [place], [address] , [place] [facility] 5 14:04:42 Gouty arthritis of toe 244366140 Active 2024 JUANI Cruz [address], [address], [place], [address] , [place] [facility] 5 11:24:07 Loss of sense of smell 85859910 Active 2024 Osvaldo Huynh MD [address], [address], [place], [address] , [facility] [employer] [facility] 10:37:45 Notes:Some problems listed i n Documents: #[id number], #[id number], #[id number] could not be added to this patient's chart. Please review these documents and add these problems to the patient's chart manually as needed. Problem Notes None recorded. Procedures Surgical History Date Name Laterality Status Provider Name and Address Organization Details Recorded Time 11/18/19 25 Transitional_Care _Management completed DEMETRICE Garnica [facility] [employer] [facility] 11/17/2024 09:09:11 07/15/20 24 Medicare Wellness CPT Code, subsequent completed November STEFANO Cash [facility] [employer] [facility] 07/15/2024 10:27:56 excision of melanoma completed Not Available [facility] 10/10/2022 08:43:36 tonsillectomy completed Naida Osorio RN [facility] [employer] [facility] 04/29/2025 10:09:38 Imaging Results None recorded. [...] Updated DateTime 5 175.26 cm 32.5 kg/m2 57680.3 2 g 96.8 [degF] 94 % 94 % 86 /min 122/72 mm[Hg] Katie [place] Tiffanie [facility] [employer] [facility] 5 11:40:48 Date Recorded Body height Body mass index (BMI) Body weight Body temperature Heart rate Oxygen saturation Oxygen saturation in Arterial blood by Pulse oximetry Systolic And Diastolic Provider Name and Address Organization Details Last Updated DateTime 5 175.26 cm 32.3 kg/m2 08243.7 3 g 97.7 [degF] 88 /min 96 % 96 % 120/74 mm[Hg] Katie [place] Tiffanie [facility] [employer] [facility] 5 09:35:24 Date Recorded Body height Body mass index (BMI) Body weight Body temperature Heart rate Respiratory rate Oxygen saturation Oxygen saturation in Arterial blood by Pulse oximetry Pain severity - 0-10 verbal numeric rating [Score] - Reported Systolic And Diastolic Provider Name and Address Organization Details Last Updated DateTime 5 175.26 cm 31.2 kg/m2 79780.0 9 g 96.8 [degF] 77 /min 24 /min 96 % 96 % 0 118/78 mm[Hg] Mckayla Carrizales RN [facility] [employer] [facility] 5 10:00:05 Date Recorded Body height Body mass index (BMI) Body weight Body temperature Heart rate Respiratory rate Oxygen saturation Oxygen saturation in Arterial blood by Pulse oximetry Pain severity - 0-10 verbal numeric rating [Score] - Reported Systolic And Diastolic Provider Name and Address Organization Details Last Updated DateTime 5 175.26 cm 31.5 kg/m2 04279.2 2 g 97.1 [degF] 95 /min 20 /min 99 % 99 % 8 118/78 mm[Hg] Mckayla Carrizales RN [facility] [employer] [facility] 5 11:00:31 Date Recorded Body height Body mass index (BMI) Body weight Body temperature Provider Name and Address Organization Details Last Updated DateTime 04/29/2025 175.26 cm 32.3 kg/m2 16104.73 g 97.5 [degF] Naida Osorio RN [place] [facility] [place] [employer] [facility] 04/29/2025 10:11:29 Social History Question Answer Notes LastModified by Organizat ion Details LastModified Time Tobacco Smoking Status Former Smoker Not Available [facility] 10/10/2022 08:43:31 Do You Have An Advance [...] Type Of Diet Are You Following? REGULAR [id number] Information not available 10/10/2022 Have There Been Any Changes To Your Family Or Social Situation? No Information not available 03/16/2025 When Did You Quit Smoking? 16+yearssince lastcigarette [id number] Information not available 10/10/2022 Do You Use [...] Do You Have A Medical Power Of Live Source Operator? No Information not available 03/16/2025 What Was [...] Age Did You Start Smoking Tobacco? 15 [id number] Information not available 10/10/2022 Are You Passively [...] Do You Have Any Dietary Restrictions? No [id number] Information not available 10/10/2022 Sex: Unknown Functional Status Question Answer Note LastModified by Organizat ion Details LastModified Time Do you or have you ever used any other forms of tobacco or nicotine? No [id number] Information not available 10/10/2022 What is your [...] 03/16/2025 What is your exercise level? None [id number] Information not available 10/10/2022 Mental Status Question Answer Note LastModified by Organizat ion Details LastModified Time Do you feel stressed (tense, restless, nervous, or anxious, or unable to sleep at night)? [id number] Information not available 03/16/2025 Do you have [...] ENT Medical History Condition Response OBESITY Y GOUT Y HEARTBURN / REFLUX Y PAIN Y HYPERTENSION Y HEPATITIS / LIVER DISEASE Y Immunizations Vaccine Type Date Status Note Provider Nam e and Address Organization Details Recorded Time Pneumococcal conjugate PCV20, polysaccharide ALS978 conjugate, adjuvant, PF 5 completed Mckayla Carrizales RN null, [place] [employer] [facility] 03/16/2025 11:33:11 Influenza, high-dose, trivalent, PF 4 completed [facility] [address], [place], [address], [facility] 07/25/2024 21:14:08 Past Encounters Encounter ID Performer Location Encounter Start Date Encounter Closed Date Diagnosis/Indication Diagnosis SNOMED-CT Code Diagnosis ICD10 Code Diagnosis IMO Codes Diagnosis Note [id number] Dorys Driscoll MD [facility] Cathy deal [facility] [place] [address] 11/09/2021 00:00:00 11/09/2021 19:46:51 [id number] Dorys Driscoll MD [facility]athy deal [address] [place] [address] [place] [address] 12/25/2022 14:14:06 12/25/2022 15:15:04 Renewal of prescription 904984602 Z76.0 Hyperlipidemia 93774578 E78.5 Screening for malignant neoplasm of prostate 357624066 Z12.5 Thyroid di sorder screening 227583796 Z13.29 Edema of l ower extremity 712040035 R60.0 Elevate legs. Watch salt in diet and needs to exercise to lose weight. Use compressio n stockings. [id number] Dorys Driscoll MD [facility]athy [facility] [place] [address] 09/12/2023 10:31:44 09/12/2023 10:58:28 Abnormal weight 86302322 R63.4 Essential hypertension 82992504 I10 Hyperlipidemia 04156319 E78.5 Atrial fibrillation 4943 6004 I48.91 Obesity 454964401 E66.9 Screening for malignant neoplasm of prostate 901165187 Z12.5 Diabetes m ellitus screening 522178154 Z13.1 Hyperlipid emia screening 490510822 Z13.220 Screening for disorder 337349783 Z13.9 Thyroid di sorder screening 747547346 Z13.29 Venous ins ufficiency of lower limb 752740419 I87.2 [id number] Dorys Driscoll MD [facility]athy [facility] [place] [address] 10/23/2023 13:57:19 10/23/2023 14:37:13 Folliculitis 31222579 L73.9 Atrial fibrillation 4943 6004 I48.91 Cardiomegaly 4439183 I51 .7 Essential hypertension 75509716 I10 Hyperlipidemia 67863966 E78.5 Peripheral vascular disease 046057746 I73.9 Prostate s pecific antigen above reference range 246815787 R97.20 Venous ins ufficiency of lower limb 062429176 I87.2 [id number] Cristo Ramires MD [facility] [address] [place] [address] 04/02/2024 12:02:49 04/02/2024 12:50:03 Gout 29469732 M10.9 Diabetes m ellitus screening 677050414 Z13.1 Hyperlipid emia screening 944123306 Z13.220 Screening for disorder 275860072 Z13.9 Thyroid di sorder screening 355653983 Z13.29 [id number] Cristo Ramires MD [place] [address] [place] [place] [address] 04/15/2024 09:26:42 04/15/2024 10:21:38 Gout 28318267 M10.9 Gastroesop hageal reflux disease 496617501 K21.9 Atrial fibrillation 4943 6004 I48.91 Cardiomegaly 8246039 I51 .7 Essential hypertension 54407782 I10 Hyperlipidemia 59554448 E78.5 Peripheral vascular disease 601333981 I73.9 Venous ins ufficiency of lower limb 606867948 I87.2 [id number] Cristo Ramires MD [address] [address] 07/15/2024 10:05:06 07/15/2024 10:49:22 Administration of influenza vaccine 93928259 Z23 Adult [facility] th examination 426930606 Z00.00 Screening for disorder 116350921 Z13.9 Renewal of prescription 770928853 Z76.0 Cough 39532655 R05.9 [id number] Cristo Ramires MD [address] [address] 10/13/2024 10:19:09 10/15/2024 09:11:34 Gastroesophageal reflux disease 479380984 K21.9 Gout 65576239 M10.9 Atrial fibrillation 4943 6004 I48.91 Essential hypertension 93696846 I10 Hyperlipidemia 15675921 E78.5 Peripheral vascular disease 448713217 I73.9 Edema of l ower extremity 402184873 R60.0 Obesity 396288965 E66.9 [id number] Cristo Ramires MD [address] [address] 11/17/2024 08:58:30 11/17/2024 09:53:01 Transition of care 8685190697 105 Z75.8 Atrial fibrillation 4943 6004 I48.91 Essential hypertension 43788116 I10 Bilateral calf pain 1563 383017 7503595 M79.661 M79.662 Gastroesop hageal reflux disease 244903547 K21.9 Hyperlipidemia 86481490 E78.5 Peripheral vascular disease 362952372 I73.9 [id number] Cristo Ramires MD [address] [address] 12/07/2024 11:28:54 12/07/2024 12:14:01 Cardiomegaly 9340300 I51.7 Serum crea tinine above reference range 211922415 R79.89 Pain of left calf 869728 1111 351158 M79.419 [id number] Cristo Ramires MD [address] [address] 12/14/2024 09:21:45 12/14/2024 10:19:11 Idiopathic sleep related non-obstructive alveolar hypoventilation 106033598 G47.34 377694 [id number] Cristo Ramires MD [address] [address] 03/16/2025 09:44:27 03/16/2025 10:13:28 Hordeolum externum of lower eyelid of left eye 7146583309 25781 H00.739 9863536 Recurrent, advised to use warm compress, wash hands frequently Requires v accination against Streptococcus pneumoniae 5133045550 Z23 473719 Bilateral tinnitus 38262 22383 102 H93.13 267966 Chronic, worsening. Notes decreased hearing Obesity 994097527 E66.9 Discussed diet and exerciseLa bs checked as below Hyperlipidemia 66408303 E78.5 Will check labs Serum crea tinine above reference range 870574912 R79.89 [id number] Cristo Ramires MD [facility] [address] [address] 04/06/2025 10:42:03 04/06/2025 12:25:35 Gouty arthritis of toe 663550292 M10.9 62304272 Present and worsening for the last 2 weeksMild improvemen t with colchicine [id number] Osvaldo Huynh MD [facility] [place] [address] [place] [address] 04/29/2025 10:02:45 04/30/2025 09:25:44 Bilateral tinnitus 0378122008 102 H93.13 719463 Loss of se nse of smell 42859146 R43.0 30041 Health Concerns Section Related Observation LastModified by Organization Detai ls LastModified Time None Recorded Concern Status LastModified by Organization Details LastModified Time None Recorded Advance Directives Directive N: Payers Insurance Date Sequence Insurance Name Policy Number Policy Dyson Covered Member ID Dyson Member ID Guarantor Name 10/23/2023 1 [facility] (MEDICARE REPLACEMENT/A DVANTAGE - HMO) [place]DUAL[employer] Christophe Rocha [id number] Christophe Rocha 04/28/2025 2 [place] WHEN MEDICARE OR MEDICARE REPLACEMENT PRIMARY) Christophe Rocha [id number] Christophe Rocha 04/26/2025 1 [facility] (MEDICARE REPLACEMENT/A DVANTAGE - PPO) [id number] Christophe Rocha [id number] Christophe Rocha Notes Date Note Type Note Provider Name and Address Organization Details Recorded Time 12/07/2024 text/html ROS as noted in the HPI had pneumonia , very tired since pneumonia , pain left calf [facility]IN[facility] Helm [address], [place], [address], [employer] 12/13/2024 14:49:19 12/14/2024 text/html ROS as noted in the HPI refuses to use CPAP , too big , bulky . 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 JUANI Cruz [address], [place], [address], [employer] 04/06/2025 12:06:27 04/29/2025 text/html patient has had tinnitus since age 40. There has been no noise exposure and it is believed by his daughter to be genetic Osvaldo Huynh MD [address] [facility], [facility] [address], [place], [address], [place] [employer] 04/29/2025 10:38:24
--- OUTSIDE RECORDS SUMMARY | 2025-06-01 08:57 | XMS_ITS | Clinical Summary ---
Author Organization [facility] Facility Address [address] [address] Care Team Providers Care Compliance Auditor Name Role Phone Chance Larkin Primary Care [...] Insurance UHC Medicare Medicaid [place] Care Teams Compliance Auditor Relationship Specialty Start Date End Date Chance Larkin PA [address] [place] [address] PCP - General Physician [employer] 12/31/24
--- NOTE | 2025-06-21 10:33 | WPDSLEEPSTUD ---
Sleep Study Date of Study: 06/01/25 Ordering Provider: FRANSISCA Ca Interpreting Physician: Katya Michael MD Sleep Study Type: Split Polysomnogram Height: 1.78 m Weight: 97.522 kg Body Mass Index: 30.8 Neck Circumference (inches): 20 Ethan: 2 Reason for Sleep Study Loud snoring Sleep History Christophe Rocha is a 79-year-old man with loud snoring. He frequently awakens from sleep feeling short of breath. He never wakes at night with heartburn, belching or coughing.??He constantly snores, and occasionally snores loudly enough that others complain. He never has trouble sleeping when he has a cold. He never wakes up gasping for breath during the night. He never has breathing problems at night. He never sweats excessively at night. He never notices his heart pounding or beating irregularly during the night. He never falls asleep during the day. He never falls asleep involuntarily, never falls asleep while driving. He never experiences loss of muscle tone with strong emotion. He never has daytime difficulty at work due to excessive sleepiness. He never feels paralyzed on waking or falling asleep. He never experiences vivid dreams upon waking or falling asleep. He never feels afraid of going to sleep. He never has nightmares. He always recalls his dreams. He never has thoughts racing through his mind. He never feels sad or depressed. He never feels anxiety. He rarely notices parts of his body jerk. He never kicks during the night. He never feels crawling or aching feelings in his legs. He never feels leg pain at night. He never has morning jaw pain, never grinds his teeth at night. He never feels bothered by pain during the day, never awakened by pain during the night. He never wakes up feeling stiff in the morning, and he never wakes feeling sore or achy. He never awakens with pain in his neck, spine, or joints. Normal bedtime is 10:00 p.m., falling asleep within 3 minute, waking 2 times at night to urinate. Wake time is 6:00 a.m.. He typically gets 8 hours of sleep per night. He keeps the same schedule on weekends. He generally does not nap however a short nap 10-15 minutes long may be refreshing. Habits:??Tobacco: Never smoker Caffeine: 3 per day Alcohol: none Recreational substances: none [facility] Past Medical History Medical History (Updated 07/02/25 @ 18:42 by Katya Michael MD) JOCE (obstructive sleep apnea) Hyperlipidemia Hypertension CVA (cerebral vascular accident) CKD (chronic kidney disease) Chronic anticoagulation Atrial fibrillation Family History Family History Mother Acute myocardial infarction <65yo Social History Social History Smoking packs per day: 1 Smoking cigarettes per day: 20.0 Years smoked: 40 Smoking pack-years: 40.00 Smoking status: Former smoker Tobacco type: cigarettes Smoking end date: 08/12/89 Alcohol intake: current Alcohol use details: 1 per month Substance use: never Substance use type: does not use Lack of Transportation: No Lack of Food: Never True Current Housing: I Have Housing Concerned About Future Housing: No Difficulty Paying Gas/Electric Bills: No Difficulty Paying for Meds: No Currently Unemployed: No Education: High School Diploma/GED Difficulty w/ Childcare or Family Care: No Living arrangements: with family Additional living arrangements comments: Spiritual care concerns: No Medications Home Medications ?Medication ?Instructions ?Recorded ?Confirmed ?Type apixaban 5 mg tablet (Eliquis) 5 mg PO BID 07/05/24 05/27/25 History Held on 05/27/25. Instructions: Resume on 05/29/25. atorvastatin 10 mg tablet 40 mg PO HS 07/05/24 05/27/25 History metoprolol succinate 50 mg 50 mg PO DAILY 07/05/24 05/27/25 History tablet,extended release 24 hr propafenone 325 mg 325 mg PO BID 07/05/24 05/27/25 History capsule,extended release 12 hr furosemide 20 mg tablet 20 mg PO DAILY 03/19/25 05/18/25 History lisinopril 10 1 tablet PO DAILY 03/19/25 05/27/25 History mg-hydrochlorothiazide 12.5 mg tablet tadalafil 10 mg tablet 10 mg PO DAILY 03/19/25 05/27/25 History eszopiclone 2 mg tablet (Lunesta) 2 mg PO ONCE #1 tablet 04/21/25 05/18/25 Rx diltiazem HCl 180 mg 180 mg PO DAILY 05/18/25 05/27/25 History capsule,extended release 24 hr Sleep Procedure A split night polysomnogram using the [employer] multi-channel system recorded the standard physiologic parameters including EEG, EOG, submentalis EMG, anterior tibialis EMG, EKG, body position, nasal and oral airflow using nasal pressure sensor and thermistor. Respiratory parameters of chest and abdominal movements were recorded with Respiratory Inductance Plethysmography belts. Oxygen saturation was recorded by pulse oximetry. Video monitoring was also performed. Sleep stages, periodic limb movements, and EEG arousals were scored in 30 second epochs according to the criteria of the AASM Scoring Manual. The Apnea-Hypopnea Index was calculated using CMS guidelines for definition of hypopnea while scoring respiratory events. The patient did not understand or speak Czech well and was not able to follow the needed instructions for the bio calibrations. After the baseline portion the patient met criteria for a titration with an AHI of 39.7 and desaturation to 71%. He used a large Mendoza and Paykel Solo nasal mask, initial pressure was 5 cm increased to 6 cm, 7 cm, 8 cm, EPR 3 was added to assist with patient tolerance of the mask. CPAP was increased to 9 cm and eventually 10 cm. At 10 cm, the patient spent 13 minutes in bed, all 13 minutes in non-REM, sleep efficiency was 100% and the residual apnea-hypopnea index was 0. He slept in the right lateral position at this pressure. He also tolerated CPAP 9 and CPAP 8. Sleep Architecture During the diagnostic portion of the study, the total recording time was 213.1 minutes. The total sleep time was 130.0 minutes. Sleep latency was 9.6 minutes. REM latency was 75.5 minutes. Sleep Efficiency was 61.0%. The patient had 33 awakenings for an awakening index of 15.2. Wake after sleep onset time was 73.5 minutes. The patient spent 24.5 minutes, 18.8% of total sleep time in Stage N1. The patient spent 90.0 minutes, 69.2% in Stage N2. The patient spent nio time in Stage N3. The patient spent 15.5 minutes, 11.9% in Stage REM sleep. At 01:51:48 AM the patient was placed on PAP treatment. During the treatment portion of the study, the total recording time was 250.7 minutes. The total sleep time was 169.5 minutes. Sleep latency was 14.5 minutes. REM latency was 6.5 minutes. Sleep Efficiency was 67.6%. Wake after Sleep Onset time was 67.0 minutes. The patient spent 16.0 minutes, 9.4% of total sleep time in Stage N1. The patient spent 103.0 minutes, 60.8% in Stage N2. The patient spent no time in Stage N3. The patient spent 50.5 minutes, 29.8% in Stage REM. Respiratory Analysis During the diagnostic portion of the study, the patient had 78 hypopneas, 8 obstructive apneas, no mixed apneas, and no central apneas for an overall Apnea Hypopnea Index of 39.7 events per hour. The REM Apnea Hypopnea Index was 46.5. The NREM Apnea Hypopnea Index was 38.8. The patient had a Central Apnea Hypopnea Index of 0. There were no Respiratory Effort Related Arousals. The Respiratory Disturbance Index is 44.3 events per hour. There was no evidence of Aron-Rosa Respirations. During the treatment portion of the study, the patient had 29 hypopneas, no obstructive apneas, no mixed apneas, and 2 central apneas for an overall Apnea Hypopnea Index of 11.0 events per hour. The REM Apnea Hypopnea Index was 14.3. The NREM Apnea Hypopnea Index was 9.6. The patient had a Central Apnea Hypopnea Index of 0.7. There were no Respiratory Effort Related Arousals. The Respiratory Disturbance Index is 12.7 events per hour. There was no evidence of Aron-Rosa Respirations. Arousals During the diagnostic portion of the study, there were a total of 86 arousals for an arousal index of 39.7. There were 34 respiratory arousals for an index of 15.7. There were 2 periodic limb movement arousals for an index of 0.9. There were 10 isolated limb movement arousals for an index of 4.6. There were 41 spontaneous arousals for an index of 18.9. During the treatment portion of the study, there were a total of 39 arousals for an index of 13.8. There was 1 respiratory arousal for an index of 0.4. There were 4 periodic limb movement arousals for an index of 1.4. There were 2 isolated limb movement arousals for an index of 0.7. There were 32 spontaneous arousals for an index of 11.3. Periodic Limb Movements During the diagnostic portion of the study, the patient had 39 isolated limb movements with an index of 18.0. The patient had 17 periodic limb movements with an index of 7.8. The patient had a total of 56 limb movements with a total limb movement index of 25.8. During the treatment portion of the study, the patient had 18 isolated limb movements with an index of 6.4. The patient had 64 periodic limb movements with an index of 22.7. The patient had a total of 82 limb movements with a total limb movement index of 29.0. Oximetry Data During the diagnostic portion of the study, the patient had an average oxygen saturation of 89.7% in wake with a minimum oxygen saturation of 70% and a maximum oxygen saturation of 98%. The patient had an average oxygen saturation of 88.1% in sleep with a minimum oxygen saturation of 71% and a maximum oxygen saturation of 96%. The patient had 98 oxygen desaturations resulting in an Oxygen Desaturation Index of 45.2. The patient spent 83.8 minutes, 40.8% of total sleep time with an oxygen saturation less than 88%. During the treatment portion of the study, the patient had an average oxygen saturation of 93.1% in wake with a minimum oxygen saturation of 86% and a maximum oxygen saturation of 98%. The patient had an average oxygen saturation of 90.5% in sleep with a minimum oxygen saturation of 84% and a maximum oxygen saturation of 98%. The patient had 52 oxygen desaturations resulting in an Oxygen Desaturation Index of 18.4. The patient spent 24.8 minutes, 10.1% of total sleep time with an oxygen saturation less than 88%. Snoring Profile During the diagnostic portion, snoring was loud, eliminated during the titration. Cardiac Profile During the diagnostic portion of the study, the EKG showed atrial fibrillation, average pulse rate was 87 bpm, minimum pulse rate was 57 bpm, maximum pulse rate was 106 bpm. No arrhythmias noted. During the treatment portion of the study, the EKG showed atrial fibrillation, average pulse 86 beats per minute, minimum pulse 63 beats per minute, maximum pulse 104 beats per minute. No arrhythmias noted. EEG Profile Unremarkable, no evidence of seizures. Assessment and Plan Assessment and Plan (1) JOCE (obstructive sleep apnea): Code(s): G47.33 - Obstructive sleep apnea (adult) (pediatric) Status: Acute Assessment and Plan: This split night sleep study on 06/01/2025 shows severe obstructive sleep apnea with hypoxemia, the apnea-hypopnea index on baseline was 39 point 7, minimum desaturation 71% with loud snoring, successfully treated using CPAP 10 cm with a large Mendoza and Paykel Solo nasal mask and and heated humidity. At 10 cm, the patient spent 13 minutes in bed, all 13 minutes in non-REM, sleep efficiency was 100% and the residual apnea-hypopnea index was 0. He slept in the right lateral position at this pressure. He also tolerated CPAP 9 and CPAP 8. I would recommend CPAP 10. If this pressure is just too high CPAP 9 would be a good alternative. He spent most of the night in the left lateral position. Sleep was fragmented during the night but improved a during the titration. The patient should be prescribed this [employer] equipment as well as tubing, filters and reservoir. This should be used with all episodes of sleep. Compliance should be reviewed within 31-90 days of starting therapy for usage greater than 4 hours per night greater than 70% of the nights. The patient should be asked about symptoms such as excessive daytime sleepiness, quality of sleep, decreased nocturia, increased mental functioning such as memory, mood, and concentration. He had an increase in his periodic limb movements during the titration. On the baseline his PLM index was 7.8, and during treatment the PLM index was 22.7. His limb movements did not cause arousals. Data The data obtained during this sleep study is adequate for interpretation. Certification This sleep study has been reviewed by a board certified sleep medicine physician.
== END 2025-06-02 06:57 | disposition home or self-care (01) ==
PROVIDERS: PCP Physician Assistant; Visit Provider Physician Assistant
DX: G47.33 Obstructive sleep apnea (adult) (pediatric) (principal); I48.91 Unspecified atrial fibrillation; M54.81 Occipital neuralgia
CPT/HCPCS: 95811

== ENCOUNTER 2025-06-30 07:32 | Outpatient (CLI) | payer MEDICARE, MEDICAID, SELFPAY ==
--- NOTE | ~2025-06-30 | PE_ITS ---
EXAMINATION: PET_PETPSMAST_PT DATE: 06/30/2025 11:05 INDICATION: Prostate cancer TECHNIQUE: 5.472 mCi of Illucix Ga-68([id number]) was administered i.v. Low dose computed tomography (CT) images were acquired from the base of the brain to the base of the brain to the proximal thighs for attenuation correction and anatomic localization. Positron emission tomography (PET) images were acquired in the same distribution beginning 82 minutes after injection. Images including fused PET/CT images were reconstructed in axial, coronal, and sagittal planes. Automated exposure control technique was employed. The dose-length product was 1180.85mGy-cm. COMPARISON: None FINDINGS: Head/neck: Typical pattern of symmetric physiologic increased activity in the lacrimal, parotid and submandibular glands as well as along the mucosa of the nasal and oral cavities, pharynx and hypopharynx. No pathologically enlarged cervical lymphadenopathy or suspicious foci of increased uptake in the visualized head or neck. Chest: There are groundglass opacities and irregular septal line thickening with dependent predominance throughout both lungs. No suspicious pulmonary nodules or abnormally PSA may avid pulmonary lesions. Cardiomegaly. No pericardial effusion. Thoracic aorta is normal in caliber. No pathologically enlarged or PSMA avid thoracic lymphadenopathy. Abdomen/pelvis/proximal thighs: Physiologic renal accumulation and excretion of activity in the kidneys, bladder and along portions of ureters. Marked prostatomegaly measuring 6.9 x 6.5 cm. There is approximately 3 x 2 cm ill-defined region of mild increased activity in the right paramedian peripheral zone of the prostate with maximal SUV of 5.1 consistent with reported primary prostate cancer. Normal degree and slightly heterogenous pattern of increased uptake throughout the liver and spleen without radiologic correlate or dominant PSMA avid lesion. The gallbladder, pancreas and bilateral adrenal glands are normal. Moderate uptake scattered throughout the bowels with typical duodenal and proximal jejunal predominance and without radiologic correlate, also likely physiologic. Small bilateral fat-containing indirect inguinal hernias with additional small fat-containing direct left inguinal hernia. No other abnormal foci of increased uptake or pathologically enlarged lymphadenopathy in the abdomen, pelvis or proximal thighs. Musculoskeletal: And moderate to severe lower lumbar, moderate thoracic and mild cervical spondylosis. No suspicious lytic, blastic or abnormally PSMA avid bone lesions. IMPRESSION: 1. Markedly enlarged prostate with small region the right peripheral zone with mildly increased activity consistent with primary prostate cancer. No evident metastatic disease. 2. Bilateral groundglass and irregular interstitial opacities with dependent predominance in both lungs which could represent pulmonary edema, pneumonia, atelectasis, chronic interstitial lung disease or some combination thereof. 3. Cardiomegaly. 4. Bilateral fat-containing inguinal hernias. Reviewed, dictated and finalized at location A. P CHARGER IMPRESSION: 1. Markedly enlarged prostate with small region the right peripheral zone with mildly increased activity consistent with primary prostate cancer. No evident m etastatic disease. 2. Bilateral groundglass and irregular interstitial opacities with dependent pr edominance in both lungs which could represent pulmonary edema, pneumonia, atel ectasis, chronic interstitial lung disease or some combination thereof. 3. Cardiomegaly. 4. Bilateral fat-containing inguinal hernias.
== END 2025-06-30 07:33 | disposition home or self-care (01) ==
PROVIDERS: PCP Physician Assistant; Visit Provider Nurse Practitioner Family
DX: C61 Malignant neoplasm of prostate (principal); Z19.1 Hormone sensitive malignancy status
CPT/HCPCS: 78815; A9596